=== PATIENT | male | born 1935 | race Caucasian/White ===

== ENCOUNTER → 2019-02-09 | Day surgery (SDC) | payer MEDICARE ==
[2019-02-07 10:47] VITALS: BMI 30.7
[~2019-02-09] MED LIST: LIDOCAINE 1% 20 ML VIAL (10MG/ML) FOR IV START INTRADERMA ONE; LIDOCAINE 1% INJ 10MG/ML (20 ML MDV) ONE; PROPOFOL 10 MG/ML 20 ML VIAL IV ONE
[2019-02-09] MEDS: LACTATED RINGERS 1,000 ML IV SCH ×2 (09:45→10:29)
[2019-02-09 09:56] VITALS: RESP 16; TEMP 97.3
[2019-02-09 09:56] LABS: Glucose,Whole Blood 90 mg/dL (75-99)
[2019-02-09 11:24] VITALS: BP 153/81; PULSE 54
--- NOTE | 2019-02-09 21:39 | P.PCN ---
Date of Procedure: 02/09/19 Procedure(s) Performed: Procedure: 1. Esophagogastroduodenoscopy and biopsy. 2. Colonoscopy and polypectomy. Preoperative diagnosis: Iron deficiency anemia. Postoperative diagnosis: 1. Hiatal hernia with no obvious esophagitis or complicated reflux disease. 2. Mild gastritis and duodenitis. 3. Biopsies obtained from the duodenum, antrum, esophagus and GE junction. 4. Diffuse diverticulosis with no evidence of acute diverticulitis or strictures. 5. Small isolated angiectasias in the cecum, nonbleeding, were noted unlikely to be of clinical significance. 6. Small sigmoid polyp snared but no large polyps or cancer. Preparation: HalfLytely prep. Sedation: Was provided by anesthesia. Brief clinical history: The patient is an 83-year-old male who is scheduled for this evaluation because of finding of iron deficiency anemia but no overt bleeding. His last colonoscopy with me was in May 06/2016 for screening for neoplasia because of history of polyps and it showed diffuse diverticulosis. The patient has no upper or lower GI complaints or change in bowel habits. No overt bleeding. Procedure: With the patient on his left lateral decubitus position and after informed consent and adequate sedation, I passed the Olympus-GIF H190 video upper endoscope through the cricopharyngeus down the esophagus. GE junction was around 35 cm from the incisors and there was a moderately sized sliding hiatal hernia with no obvious esophagitis or complicated reflux disease. The endoscope was then passed into the stomach which was insufflated with air and inspected in detail including the retroflex view in the cardia. There was some mottling and erythema in the antrum but no ulcers or erosions. Pyloric channel did not show any ulcers. Duodenal bulb, post bulbar area and descending duodenum showed some erythema. I obtained biopsies from the duodenum, antrum, esophagus and GE junction then the endoscope was withdrawn and I proceeded to perform the colonoscopy. The perianal area was inspected and it did not show any fissures or fistulas. There were no masses felt on digital rectal examination. The Olympus CFH 190L video colonoscope was then inserted in the rectum in the usual fashion and advanced to the cecum. The mucosa appeared healthy. Small isolated angiectasias in the cecum, nonbleeding, were noted unlikely to be of clinical significance. A picture was obtained. There was A small polyp was seen in the sigmoid which was snared and retrieved by suction, but there were no large polyps or tumors. Diffuse diverticular disease noted, more on left side, with no evidence of acute diverticulitis or strictures. I retroflexed the endoscope in the rectum before the endoscope was withdrawn. The patient tolerated the procedre well. Plan: Patient will follow up with you as planned. Contingency capsule endoscopy.
== END ==
LOC: ORWHC2ENDO 08:17
DX: D50.9 Iron deficiency anemia, unspecified (principal); K29.50 Unspecified chronic gastritis without bleeding; K31.7 Polyp of stomach and duodenum; K44.9 Diaphragmatic hernia without obstruction or gangrene; K29.80 Duodenitis without bleeding; D12.5 Benign neoplasm of sigmoid colon; K57.30 Diverticulosis of large intestine without perforation or abscess without bleeding; K63.89 Other specified diseases of intestine; I10 Essential (primary) hypertension; E78.5 Hyperlipidemia, unspecified; J44.9 Chronic obstructive pulmonary disease, unspecified; C61 Malignant neoplasm of prostate; Z87.891 Personal history of nicotine dependence; Z79.810 Long term (current) use of selective estrogen receptor modulators (SERMs); Z79.52 Long term (current) use of systemic steroids; Z79.899 Other long term (current) drug therapy
CPT/HCPCS: 45385; 43239; 88305; J2001; J2704

== ENCOUNTER 2019-09-15 10:04 | Inpatient (IN) | payer MEDICARE ==
[2019-09-15] MEDS ORDERED: ACETAMINOPHEN TAB 325 MG TAB PO STA (10:22)
[2019-09-15] MEDS ORDERED: SODIUM CHLORIDE 0.9% 500 ML 500 ML IV STA (10:22)
--- NOTE | 2019-09-15 10:26 | ED ---
General Adult HPI - General Chief complaint: Upper Respiratory Infection Stated complaint: cough/congestion Time Seen by Provider: 09/15/19 10:12 Source: patient, family, EMS, RN notes reviewed Mode of arrival: EMS Limitations: no limitations - History of Present Illness Initial comments: This is an 84-year-old male presents emergency department via EMS from outpatient surgical center for evaluation of fever, shortness of breath. Patient states he is scheduled to have bladder surgery by Dr. fajardo or states that they were unable to perform surgery because he was noted to have a fever 101.3. Patient went to urgent care and was found still have a fever and probably slightly hypoxic at upper 80s. Patient doesn't at days had some cough congestion was recently treated for acute bronchitis. Patient states that he does have a slightly productive cough no chest pain denies any headache. He states he feels slightly achy. He does admit that he's had multiple for scans including right breast cancer, prostate cancer and recent diagnosis of bladder cancer. Patient did not receive any Tylenol or Motrin. Patient has no complaints of dysuria has no abdominal complaints. Patient states his prostate cancer was metastatic and was treated with medication prescribed by his urologist Dr. tana friedman. Patient does admit that he saw Dr. su the past but did not want chemotherapy - Related Data Home Medications Medication Instructions Recorded Confirmed Abiraterone Acetate [Zytiga] 250 mg PO DAILY 02/07/19 09/15/19 Tamsulosin HCl [Flomax] 0.8 mg PO DAILY 02/07/19 09/15/19 predniSONE 5 mg PO DAILY 02/07/19 09/15/19 Irbesartan 300 mg PO DAILY 09/15/19 09/15/19 Ketoconazole 2% Cream [Nizoral 2%] 1 applic TOPICAL DAILY 09/15/19 09/15/19 Tamoxifen Citrate 20 mg PO DAILY 09/15/19 09/15/19 Xgeva 120mg/1.7ml Subcutaneous 1.7 ml SQ Q28D 09/15/19 09/15/19 mitoMYcin [Mutamycin] 20 mg IV DIRECTED 09/15/19 09/15/19 Allergies Allergy/AdvReac Type Severity Reaction Status Date / Time No Known Allergies Allergy Verified 02/09/19 09:23 Review of Systems ROS Statement: Those systems with pertinent positive or pertinent negative responses have been documented in the HPI. ROS Other: All systems not noted in ROS Statement are negative. Past Medical History Past Medical History: Cancer, Hyperlipidemia, Hypertension Additional Past Medical History / Comment(s): hx prostate cancer pt states currently in remission, rt breast cancer recent mammogram "clean", anemia, recent infection lower rt leg tx with antibiotics History of Any Multi-Drug Resistant Organisms: None Reported Past Surgical History: Appendectomy, Breast Surgery, Orthopedic Surgery Additional Past Surgical History / Comment(s): colonoscopy, rt breast mastectomy, arthroscopic knee surgery, spleenectomy Past Anesthesia/Blood Transfusion Reactions: No Reported Reaction Past Psychological History: Anxiety Smoking Status: Former smoker - Past Family History Father Family Medical History: Cancer Additional Family Medical History / Comment(s): prostate Sister(s) Family Medical History: Cancer Additional Family Medical History / Comment(s): breast Brother(s) Family Medical History: Cancer Additional Family Medical History / Comment(s): colon cancer General Exam Limitations: no limitations General appearance: alert, in no apparent distress Head exam: Present: atraumatic, normocephalic, normal inspection Eye exam: Present: normal appearance, PERRL, EOMI. Absent: scleral icterus, conjunctival injection, periorbital swelling ENT exam: Present: normal exam, normal oropharynx, mucous membranes moist, TM's normal bilaterally Neck exam: Present: normal inspection, full ROM. Absent: tenderness, meningismus, lymphadenopathy Respiratory exam: Present: decreased breath sounds. Absent: normal lung sounds bilaterally, respiratory distress, wheezes, rales, rhonchi, stridor Cardiovascular Exam: Present: regular rate, normal rhythm, normal heart sounds. Absent: systolic murmur, diastolic murmur, rubs, gallop, clicks GI/Abdominal exam: Present: soft, normal bowel sounds. Absent: distended, tenderness, guarding, rebound, rigid Neurological exam: Present: alert, oriented X3 Skin exam: Present: warm, dry, intact, normal color. Absent: rash Course Vital Signs 09/15/19 09/15/19 10:08 12:09 Temperature 100.2 F H Pulse Rate 83 65 Respiratory 16 16 Rate Blood Pressure 109/51 90/54 O2 Sat by Pulse 86 L 94 L Oximetry Medical Decision Making - Medical Decision Making 84-year-old male presented for a fever. Patient does note have a fever, leukocytosis questionable pneumonia versus UTI. At this time patient was given Rocephin pending urine culture, blood culture. The patient noted to have elevated LFTs, kidney function and anemia. Patient's hemoglobin has been trending down over the last 1 month. Type and screen was ordered, occult blood was ordered. Patient was given 1500 mls of IV fluid resuscitation, blood pressure is slightly low at this time though patient is not tachycardic no definite sepsis at this time. Case discussed with Dr. Garza will have infectious disease, urology consult - Lab Data Result diagrams: 09/15/19 10:14 09/15/19 10:14 Lab Results 09/15/19 09/15/19 09/15/19 Range/Units 10:14 10:14 10:14 WBC 4.1 (3.8-10.6) k/uL RBC 2.42 L (4.30-5.90) m/uL Hgb 7.1 L (13.0-17.5) gm/dL Hct 21.5 L (39.0-53.0) % MCV 88.9 (80.0-100.0) fL MCH 29.5 (25.0-35.0) pg MCHC 33.2 (31.0-37.0) g/dL RDW 19.0 H (11.5-15.5) % Plt Count 99 L (150-450) k/uL Neutrophils % (Manual) 15 % Band Neutrophils % 1 % Lymphocytes % (Manual) 81 % Monocytes % (Manual) 3 % Eosinophils % (Manual) 1 % Metamyelocytes % 1 % Neutrophils # (Manual) 0.60 L (1.3-7.7) k/uL Lymphocytes # (Manual) 3.32 (1.0-4.8) k/uL Monocytes # (Manual) 0.12 (0-1.0) k/uL Eosinophils # (Manual) 0.04 (0-0.7) k/uL Metamyelocytes # (Man) 0.04 H (0) k/uL Nucleated RBCs 10 H (0-0) /100 WBC Manual Slide Review Performed Polychromasia Present Hypochromasia Slight Poikilocytosis Slight Anisocytosis Slight Target Cells Present Sodium 140 (137-145) mmol/L Potassium 3.5 (3.5-5.1) mmol/L Chloride 109 H (98-107) mmol/L Carbon Dioxide 21 L (22-30) mmol/L Anion Gap 10 mmol/L BUN 52 H (9-20) mg/dL Creatinine 1.87 H (0.66-1.25) mg/dL Est GFR (CKD-EPI)AfAm 38 (>60 ml/min/1.73 sqM) Est GFR (CKD-EPI)NonAf 33 (>60 ml/min/1.73 sqM) Glucose 112 H (74-99) mg/dL Plasma Lactic Acid Ortiz 1.6 (0.7-2.0) mmol/L Calcium 7.9 L (8.4-10.2) mg/dL Total Bilirubin 1.4 H (0.2-1.3) mg/dL AST 77 H (17-59) U/L ALT 47 (4-49) U/L Alkaline Phosphatase 265 H (38-126) U/L Total Protein 5.6 L (6.3-8.2) g/dL Albumin 3.1 L (3.5-5.0) g/dL Urine Color Urine Appearance (Clear) Urine pH (5.0-8.0) Ur Specific [place] (1.001-1.035) Urine Protein (Negative) Urine Glucose (UA) (Negative) Urine Ketones (Negative) Urine Blood (Negative) Urine Nitrite (Negative) Urine Bilirubin (Negative) Urine Urobilinogen (<2.0) mg/dL Ur Leukocyte Esterase (Negative) Urine RBC (0-5) /hpf Urine WBC (0-5) /hpf Ur Squamous Epith Cells (0-4) /hpf Amorphous Sediment (None) /hpf Urine Bacteria (None) /hpf Hyaline Casts (0-2) /lpf Granular Casts (0) /lpf Urine Mucus (None) /hpf Influenza Type A RNA (Not Detectd) Influenza Type B (PCR) (Not Detectd) 09/15/19 09/15/19 Range/Units 11:19 11:19 WBC (3.8-10.6) k/uL RBC (4.30-5.90) m/uL Hgb (13.0-17.5) gm/dL Hct (39.0-53.0) % MCV (80.0-100.0) fL MCH (25.0-35.0) pg MCHC (31.0-37.0) g/dL RDW (11.5-15.5) % Plt Count (150-450) k/uL Neutrophils % (Manual) % Band Neutrophils % % Lymphocytes % (Manual) % Monocytes % (Manual) % Eosinophils % (Manual) % Metamyelocytes % % Neutrophils # (Manual) (1.3-7.7) k/uL Lymphocytes # (Manual) (1.0-4.8) k/uL Monocytes # (Manual) (0-1.0) k/uL Eosinophils # (Manual) (0-0.7) k/uL Metamyelocytes # (Man) (0) k/uL Nucleated RBCs (0-0) /100 WBC Manual Slide Review Polychromasia Hypochromasia Poikilocytosis Anisocytosis Target Cells Sodium (137-145) mmol/L Potassium (3.5-5.1) mmol/L Chloride (98-107) mmol/L Carbon Dioxide (22-30) mmol/L Anion Gap mmol/L BUN (9-20) mg/dL Creatinine (0.66-1.25) mg/dL Est GFR (CKD-EPI)AfAm (>60 ml/min/1.73 sqM) Est GFR (CKD-EPI)NonAf (>60 ml/min/1.73 sqM) Glucose (74-99) mg/dL Plasma Lactic Acid Ortiz (0.7-2.0) mmol/L Calcium (8.4-10.2) mg/dL Total Bilirubin (0.2-1.3) mg/dL AST (17-59) U/L ALT (4-49) U/L Alkaline Phosphatase (38-126) U/L Total Protein (6.3-8.2) g/dL Albumin (3.5-5.0) g/dL Urine Color Yellow Urine Appearance Turbid (Clear) Urine pH 5.5 (5.0-8.0) Ur Specific [place] 1.017 (1.001-1.035) Urine Protein 1+ H (Negative) Urine Glucose (UA) Negative (Negative) Urine Ketones Negative (Negative) Urine Blood Small H (Negative) Urine Nitrite Negative (Negative) Urine Bilirubin Negative (Negative) Urine Urobilinogen <2.0 (<2.0) mg/dL Ur Leukocyte Esterase Negative (Negative) Urine RBC 47 H (0-5) /hpf Urine WBC 23 H (0-5) /hpf Ur Squamous Epith Cells 3 (0-4) /hpf Amorphous Sediment Moderate H (None) /hpf Urine Bacteria Rare H (None) /hpf Hyaline Casts 9 H (0-2) /lpf Granular Casts 11 (0) /lpf Urine Mucus Rare H (None) /hpf Influenza Type A RNA Not Detected (Not Detectd) Influenza Type B (PCR) Not Detected (Not Detectd) Disposition Clinical Impression: Fever, Dehydration, Acute kidney injury, Anemia, Transaminitis Disposition: ADMITTED IP TO THIS HOSP Condition: Fair Referrals: Johnny Casarez MD [Primary Care Provider] - 1-2 days
[2019-09-15 10:46] LABS: Albumin 3.1 g/dL (3.5-5.0); Calcium 7.9 mg/dL (8.4-10.2); Potassium 3.5 mmol/L (3.5-5.1); Total Bilirubin 1.4 mg/dL (0.2-1.3); Total Protein 5.6 g/dL (6.3-8.2)
[2019-09-15 11:15] LABS: Anisocytosis Slight; HCT 21.5 % (39.0-53.0); HGB 7.1 gm/dL (13.0-17.5); Hypochromasia Slight; MCH 29.5 pg (25.0-35.0); MCHC 33.2 g/dL (31.0-37.0); MCV 88.9 fL (80.0-100.0); Mean Platelet Volume 12.5; Poikilocytosis Slight; RBC 2.42 m/uL (4.30-5.90)
--- NOTE | 2019-09-15 11:24 | XR ---
EXAMINATION TYPE: XR chest 2V DATE OF EXAM: 09/15/2019 COMPARISON: NONE HISTORY: Fever. TECHNIQUE: Frontal and lateral views of the chest are obtained. FINDINGS: Left basilar subsegmental atelectasis is seen. There is no focal air space opacity, pleural effusion, or pneumothorax seen. Pulmonary hyperinflation with underlying COPD there is flattening of the diaphragms on the lateral view. The cardiac silhouette size is within normal limits. Multiple old healed left rib fractures. Surgical clips are seen within the right breast. IMPRESSION: Underlying COPD. Left basilar subsegmental atelectasis.
[2019-09-15 11:41] LABS: Band Neutrophils % 1 %; Eosinophils # (M) 0.04 k/uL (0-0.7); Lymphocytes # (M) 3.32 k/uL (1.0-4.8); Metamyelocytes # (M) 0.04 k/uL (0); Metamyelocytes % 1 %; Monocytes # (M) 0.12 k/uL (0-1.0); Neutrophils % (M) 15 %; Nucleated Red Blood Cells 10 /100 WBC (0-0); Total Cells Counted 200; WBC 4.1 k/uL (3.8-10.6)
[2019-09-15 11:42] LABS: Polychromasia Present; Target Cells Present
[2019-09-15 11:43] LABS: Platelet Count 99 k/uL (150-450)
[2019-09-15 11:56] LABS: Amorphous Sediment,Urine Moderate /hpf; Appearance,Urine Turbid (Clear); Bacteria,Urine Rare /hpf; Bilirubin,Urine Negative (Negative); Blood,Urine Small (Negative); Color,Urine Yellow; Glucose,Urine (UA) Negative (Negative); Granular Casts,Urine 11 /lpf (0); Hyaline Casts,Urine 9 /lpf (0-2); Ketones,Urine Negative (Negative); Leukocyte Esterase,Urine Negative (Negative); Mucus,Urine Rare /hpf; Nitrite,Urine Negative (Negative); PH, Urine 5.5 (5.0-8.0); Protein,Urine 1+ (Negative); RBC,Urine 47 /hpf (0-5); Specific Gravity,Urine 1.017 (1.001-1.035); Squamous Epithelial Cell,Urine 3 /hpf (0-4); Urobilinogen,Urine <2.0 mg/dL (<2.0); WBC,Urine 23 /hpf (0-5)
[2019-09-15] MEDS ORDERED: IPRATROPIUM-ALBUTEROL 3 ML NEB INHALATION STA (12:18)
[2019-09-15] MEDS ORDERED: SODIUM CHLORIDE 0.9% 1,000 ML IV ONE (12:18)
[2019-09-15] MEDS ORDERED: cefTRIAXone IN SWFI 1,000 MG/10 ML SYRINGE IVP STA (12:18)
[2019-09-15] MEDS ORDERED: NALOXONE 0.4 MG/ML 1 ML VIAL IV PRN (12:34)
[2019-09-15] MEDS ORDERED: ACETAMINOPHEN TAB 325 MG TAB PO PRN (12:34)
[2019-09-15] MEDS: SODIUM CHLORIDE 0.9% 1,000 ML IV SCH (13:20)
[2019-09-15] MEDS: CALCIUM CARBONATE 500 MG CHEWABLE PO PRN (16:22)
[2019-09-15] MEDS ORDERED: AZITHROMYCIN 500 MG TAB PO STA (16:38)
--- NOTE | 2019-09-15 16:51 | P.CONS ---
History of Present Illness - Reason for Consult Consult date: 09/15/19 Fever Requesting physician: Julian Garza - Chief Complaint Fever 1 day - History of Present Illness Patient is 84 year male who apparently went to surgery Center as the patient was supposed to undergo surgery for removal of a bladder polyp/tumor or surgery Center the patient was noticed to have a fever of 101F , the patient's surgery was canceled and the patient has been sent to [facility] on ER for further management of his fever on arrival to the ER the patient had did have a temperature 100.2, the patient white count was normal patient did have a UA we did shows 23 WBC leukocyte esterase was negative chest x-ray with some basilar atelectasis patient did received a dose of Rocephin in the subsequent the patient has been admitted to the hospital infection disease was consulted for further recommendation regarding antibiotic therapy. Patient did not recall if it is running any fever before he went to the surgery Center this morning patient had been complaining of cough that seems to be going on the last few weeks and recently slightly worse intensity of the cough is moderate and is productive of yellow sputum or hemoptysis no chest pain denies any nausea no vomiting no abdominal pain no diarrhea denies any burning or frequency of urine Review of Systems Positive point has been mentioned in the HPI rest of the systems are negative Past Medical History Past Medical History: Cancer, Hyperlipidemia, Hypertension Additional Past Medical History / Comment(s): hx prostate cancer pt states currently in remission, rt breast cancer recent mammogram "clean", anemia, recent infection lower rt leg tx with antibiotics History of Any Multi-Drug Resistant Organisms: None Reported Past Surgical History: Appendectomy, Breast Surgery, Orthopedic Surgery Additional Past Surgical History / Comment(s): colonoscopy, rt breast mastectomy, arthroscopic knee surgery, spleenectomy Past Anesthesia/Blood Transfusion Reactions: No Reported Reaction Past Psychological History: Anxiety Smoking Status: Former smoker - Past Family History Father Family Medical History: Cancer Additional Family Medical History / Comment(s): prostate Sister(s) Family Medical History: Cancer Additional Family Medical History / Comment(s): breast Brother(s) Family Medical History: Cancer Additional Family Medical History / Comment(s): colon cancer Mother Family Medical History: No Reported History Additional Family Medical History / Comment(s): Mother lived to be 98yrs old. Medications and Allergies Home Medications Medication Instructions Recorded Confirmed Type Abiraterone Acetate [Zytiga] 250 mg PO DAILY 02/07/19 09/15/19 History Tamsulosin HCl [Flomax] 0.8 mg PO DAILY 02/07/19 09/15/19 History predniSONE 5 mg PO DAILY 02/07/19 09/15/19 History Irbesartan 300 mg PO DAILY 09/15/19 09/15/19 History Ketoconazole 2% Cream [Nizoral 2%] 1 applic TOPICAL DAILY 09/15/19 09/15/19 History Tamoxifen Citrate 20 mg PO DAILY 09/15/19 09/15/19 History Xgeva 120mg/1.7ml Subcutaneous 1.7 ml SQ Q28D 09/15/19 09/15/19 History mitoMYcin [Mutamycin] 20 mg IV DIRECTED 09/15/19 09/15/19 History Allergies Allergy/AdvReac Type Severity Reaction Status Date / Time No Known Allergies Allergy Verified 02/09/19 09:23 Physical Exam Vitals: Vital Signs Temp Pulse Pulse Resp BP BP Pulse Ox 09/15/19 13:57 97.6 F 78 17 104/55 93 L 09/15/19 13:15 99.7 F H 76 16 103/56 95 09/15/19 12:48 79 09/15/19 12:09 65 16 90/54 94 L 09/15/19 10:08 100.2 F H 83 16 109/51 86 L Intake and Output 09/15/19 09/15/19 09/15/19 06:59 14:59 22:59 Other: Weight 83.915 kg GENERAL DESCRIPTION: Elderly male lying in bed, no distress. No tachypnea or accessory muscle of respiration use. HEENT: Shows Pallor , no scleral icterus. Oral mucous membrane is dry. No pharyngeal erythema or thrush NECK: Trachea central, no thyromegaly. LUNGS: Unlabored breathing. Decreased breath sound the bases. No wheeze or crackle. HEART: S1, S2, regular rate and rhythm. No loud murmur ABDOMEN: Soft, no tenderness , guarding or rigidity, no organomegaly EXTREMITIES: No edema of feet. SKIN: No rash, no masses palpable. NEUROLOGICAL: The patient is awake, alert, oriented x3, mood and affect normal. Results CBC & Chem 7: 09/15/19 10:14 09/15/19 10:14 Labs: Abnormal Lab Results - Last 24 Hours (Table) 09/15/19 09/15/19 09/15/19 Range/Units 10:14 10:14 11:19 RBC 2.42 L (4.30-5.90) m/uL Hgb 7.1 L (13.0-17.5) gm/dL Hct 21.5 L (39.0-53.0) % RDW 19.0 H (11.5-15.5) % Plt Count 99 L (150-450) k/uL Neutrophils # (Manual) 0.60 L (1.3-7.7) k/uL Metamyelocytes # (Man) 0.04 H (0) k/uL Nucleated RBCs 10 H (0-0) /100 WBC Chloride 109 H (98-107) mmol/L Carbon Dioxide 21 L (22-30) mmol/L BUN 52 H (9-20) mg/dL Creatinine 1.87 H (0.66-1.25) mg/dL Glucose 112 H (74-99) mg/dL Calcium 7.9 L (8.4-10.2) mg/dL Total Bilirubin 1.4 H (0.2-1.3) mg/dL AST 77 H (17-59) U/L Alkaline Phosphatase 265 H (38-126) U/L Total Protein 5.6 L (6.3-8.2) g/dL Albumin 3.1 L (3.5-5.0) g/dL Urine Protein 1+ H (Negative) Urine Blood Small H (Negative) Urine RBC 47 H (0-5) /hpf Urine WBC 23 H (0-5) /hpf Amorphous Sediment Moderate H (None) /hpf Urine Bacteria Rare H (None) /hpf Hyaline Casts 9 H (0-2) /lpf Urine Mucus Rare H (None) /hpf Assessment and Plan Assessment: 1Patient presented to the hospital with a fever in this patient who did have hypoxemia on arrival to the ER with O2 sats of 86% did have left lower lobe infiltrate in this patient who did have a cough and yellow sputum production likely suspicious for pneumonia likely community acquired as patient currently with no other clinical focus of infection the patient influenza test was negative, UA is not significantly positive and patient no urinary symptoms abdominal soft on clinical examination and no evidence of any joint swelling or cellulitis- (1) Pneumonia Current Visit: Yes Status: Acute Code(s): J18.9 - PNEUMONIA, UNSPECIFIED ORGANISM SNOMED Code(s): 764022623 (2) Fever Current Visit: Yes Status: Acute Code(s): R50.9 - FEVER, UNSPECIFIED SNOMED Code(s): 376506230 Plan: 1-we will try to obtain sputum for Gram stain and culture 2-Rocephin 1 g daily and Zithromax We will follow on clinical condition and cultures to further adjust medication if needed Thank you for this consultation will follow this patient with you Time with Patient: Greater than 30
[2019-09-15 18:35] LABS: Anisocytosis Slight; Hypochromasia Marked; MCH 29.8 pg (25.0-35.0); MCHC 32.8 g/dL (31.0-37.0); Mean Platelet Volume 12.7; Poikilocytosis Slight; RBC 2.16 m/uL (4.30-5.90)
[2019-09-15 18:37] LABS: HCT 19.7 % (39.0-53.0); HGB 6.5 gm/dL (13.0-17.5); Platelet Count 89 k/uL (150-450)
[2019-09-15 19:19] LABS: Band Neutrophils % 1 %; Neutrophils % (M) 17 %; Nucleated Red Blood Cells 4 /100 WBC (0-0); Total Cells Counted 200
[2019-09-15 19:20] LABS: Lymphocytes # (M) 1.58 k/uL (1.0-4.8); Monocytes # (M) 0.41 k/uL (0-1.0); WBC 2.4 k/uL (3.8-10.6)
[2019-09-15 19:24] LABS: Anisocytosis (M) Present; Poikilocytosis (M) Present; Polychromasia Present
[2019-09-16] MEDS: SODIUM CHLORIDE 0.9% 1,000 ML IV SCH ×2 (03:10→16:55)
[2019-09-16 07:43] LABS: Anisocytosis Slight; HCT 22.8 % (39.0-53.0); HGB 7.5 gm/dL (13.0-17.5); Hypochromasia Moderate; MCH 29.8 pg (25.0-35.0); MCHC 32.9 g/dL (31.0-37.0); MCV 90.6 fL (80.0-100.0); Mean Platelet Volume 12.3; Poikilocytosis Moderate; RBC 2.52 m/uL (4.30-5.90); RDW 18.4 % (11.5-15.5)
[2019-09-16 07:53] LABS: Albumin 2.9 g/dL (3.5-5.0); Calcium 7.6 mg/dL (8.4-10.2); Potassium 3.3 mmol/L (3.5-5.1); Total Bilirubin 1.4 mg/dL (0.2-1.3); Total Protein 5.3 g/dL (6.3-8.2)
[2019-09-16 07:59] LABS: Platelet Count 80 k/uL (150-450)
[2019-09-16] MEDS ORDERED: AZITHROMYCIN 250 MG TAB PO SCH (09:00)
[2019-09-16 09:08] LABS: Band Neutrophils % 1 %; Lymphocytes # (M) 2.07 k/uL (1.0-4.8); Metamyelocytes # (M) 0.03 k/uL (0); Metamyelocytes % 1 %; Monocytes # (M) 0.36 k/uL (0-1.0); Neutrophils % (M) 18 %; Nucleated Red Blood Cells 5 /100 WBC (0-0); Total Cells Counted 200
[2019-09-16 09:10] LABS: Large Platelets Present
--- NOTE | 2019-09-16 09:45 | US ---
EXAMINATION TYPE: US gallbladder DATE OF EXAM: 09/16/2019 COMPARISON: NONE CLINICAL HISTORY: elevated LFTs, fever. 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 isoechoic mass is seen anterior left lobe Gallbladder: partially contracted; pericholecystic fluid supper near fundus Evidence for sonographic Horn's sign: no CBD: wnl Right Kidney: No hydronephrosis or masses seen The pancreas is poorly visualized. There is a 1.1 cm cystic lesion in the mid pancreatic body. The liver is enlarged measuring 24 cm. There is a questionable nodular density in the left lobe of th e liver. The gallbladder is contracted. The gallbladder wall measures 3 mm. There is some evidence of perichol ecystic fluid. There is no sonographic Horn's sign. The distal common hepatic duct measures 3 mm. The right kidney is unremarkable. IMPRESSION: 1. CYSTIC LESION IN THE MID PANCREAS SHOULD BE FURTHER INVESTIGATED WITH CT. 2. 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 PLEA SE CORRELATE CLINICALLY.
--- NOTE | 2019-09-16 11:47 | P.GSCN ---
History of Present Illness Consult date: 09/16/19 Reason for Consult: Bladder cancer Requesting physician: Julian Garza History of present illness: The patient is an 84-year-old male diagnosed with locally advanced high-grade prostate cancer in January 2018. His PSA level at that time was 349.5. Bone scan showed diffuse osseous metastases. CT scan showed right hydronephrosis secondary to retroperitoneal adenopathy. He has been treated with androgen deprivation therapy, Zytiga, and Xgeva. His PSA level reached a carlita of 0.3 in April 2019, and was 0.4 in July 2019. A repeat CT scan in January 2019 showed resolution of the retroperitoneal adenopathy as well as the hydronephrosis, though some right renal atrophy was noted. He developed gross hematuria in July 2019. Cystoscopy revealed a 2.5 cm mass on the bladder floor, consistent with urothelial carcinoma. He was scheduled to undergo transurethral resection of the tumor yesterday, but surgery was canceled and he was admitted due to fever and shortness of breath. He is currently voiding wit hout difficulty. He describes his urine is being thalia in color. Review of Systems - Constitutional Reports fever - Cardiovascular Denies chest pain - Respiratory Reports dyspnea - Genitourinary Denies dysuria Past Medical History Past Medical History: Cancer, Hyperlipidemia, Hypertension Additional Past Medical History / Comment(s): hx prostate cancer pt states currently in remission, rt breast cancer recent mammogram "clean", anemia, recent infection lower rt leg tx with antibiotics History of Any Multi-Drug Resistant Organisms: None Reported Past Surgical History: Appendectomy, Breast Surgery, Orthopedic Surgery Additional Past Surgical History / Comment(s): colonoscopy, rt breast mastectomy, arthroscopic knee surgery, spleenectomy Past Anesthesia/Blood Transfusion Reactions: No Reported Reaction Past Psychological History: Anxiety Smoking Status: Former smoker - Past Family History Father Family Medical History: Cancer Additional Family Medical History / Comment(s): prostate Sister(s) Family Medical History: Cancer Additional Family Medical History / Comment(s): breast Brother(s) Family Medical History: Cancer Additional Family Medical History / Comment(s): colon cancer Mother Family Medical History: No Reported History Additional Family Medical History / Comment(s): Mother lived to be 98yrs old. Medications and Allergies Home Medications Medication Instructions Recorded Confirmed Type Abiraterone Acetate [Zytiga] 250 mg PO DAILY 02/07/19 09/15/19 History Tamsulosin HCl [Flomax] 0.8 mg PO DAILY 02/07/19 09/15/19 History predniSONE 5 mg PO DAILY 02/07/19 09/15/19 History Irbesartan 300 mg PO DAILY 09/15/19 09/15/19 History Ketoconazole 2% Cream [Nizoral 2%] 1 applic TOPICAL DAILY 09/15/19 09/15/19 History Tamoxifen Citrate 20 mg PO DAILY 09/15/19 09/15/19 History Xgeva 120mg/1.7ml Subcutaneous 1.7 ml SQ Q28D 09/15/19 09/15/19 History mitoMYcin [Mutamycin] 20 mg IV DIRECTED 09/15/19 09/15/19 History Allergies Allergy/AdvReac Type Severity Reaction Status Date / Time No Known Allergies Allergy Verified 02/09/19 09:23 Surgical - Exam Vital Signs Temp Pulse Resp BP Pulse Ox 100.2 F H 83 16 109/51 86 L 09/15/19 10:08 09/15/19 10:08 09/15/19 10:08 09/15/19 10:08 09/15/19 10:08 - General well developed, well nourished, no distress - Abdomen Abdomen: soft, non tender, no guarding, no rigid, no rebound - Psychiatric oriented to time, oriented to person, oriented to place, speech is normal, memory intact Results - Labs 09/16/19 07:18 09/16/19 07:18 Abnormal Lab Results - Last 24 Hours (Table) 09/15/19 09/15/19 09/15/19 Range/Units 10:14 10:14 11:19 WBC (3.8-10.6) k/uL RBC 2.42 L (4.30-5.90) m/uL Hgb 7.1 L (13.0-17.5) gm/dL Hct 21.5 L (39.0-53.0) % RDW 19.0 H (11.5-15.5) % Plt Count 99 L (150-450) k/uL Neutrophils # (Manual) 0.60 L (1.3-7.7) k/uL Metamyelocytes # (Man) 0.04 H (0) k/uL Nucleated RBCs 10 H (0-0) /100 WBC Chloride 109 H (98-107) mmol/L Carbon Dioxide 21 L (22-30) mmol/L BUN 52 H (9-20) mg/dL Creatinine 1.87 H (0.66-1.25) mg/dL Glucose 112 H (74-99) mg/dL Calcium 7.9 L (8.4-10.2) mg/dL Total Bilirubin 1.4 H (0.2-1.3) mg/dL AST 77 H (17-59) U/L Alkaline Phosphatase 265 H (38-126) U/L Total Protein 5.6 L (6.3-8.2) g/dL Albumin 3.1 L (3.5-5.0) g/dL Urine Protein 1+ H (Negative) Urine Blood Small H (Negative) Urine RBC 47 H (0-5) /hpf Urine WBC 23 H (0-5) /hpf Amorphous Sediment Moderate H (None) /hpf Urine Bacteria Rare H (None) /hpf Hyaline Casts 9 H (0-2) /lpf Urine Mucus Rare H (None) /hpf Crossmatch 09/15/19 09/15/19 Range/Units 15:17 18:13 WBC 2.4 L (3.8-10.6) k/uL RBC 2.16 L (4.30-5.90) m/uL Hgb 6.5 L* (13.0-17.5) gm/dL Hct 19.7 L* (39.0-53.0) % RDW 19.0 H (11.5-15.5) % Plt Count 89 L (150-450) k/uL Neutrophils # (Manual) 0.40 L* (1.3-7.7) k/uL Metamyelocytes # (Man) (0) k/uL Nucleated RBCs 4 H (0-0) /100 WBC Chloride (98-107) mmol/L Carbon Dioxide (22-30) mmol/L BUN (9-20) mg/dL Creatinine (0.66-1.25) mg/dL Glucose (74-99) mg/dL Calcium (8.4-10.2) mg/dL Total Bilirubin (0.2-1.3) mg/dL AST (17-59) U/L Alkaline Phosphatase (38-126) U/L Total Protein (6.3-8.2) g/dL Albumin (3.5-5.0) g/dL Urine Protein (Negative) Urine Blood (Negative) Urine RBC (0-5) /hpf Urine WBC (0-5) /hpf Amorphous Sediment (None) /hpf Urine Bacteria (None) /hpf Hyaline Casts (0-2) /lpf Urine Mucus (None) /hpf Crossmatch See Detail Microbiology - Last 24 Hours (Table) 09/15/19 11:19 Urine Culture - Preliminary Urine,Voided Diabetes panel 09/15/19 Range/Units 10:14 Sodium 140 (137-145) mmol/L Potassium 3.5 (3.5-5.1) mmol/L Chloride 109 H (98-107) mmol/L Carbon Dioxide 21 L (22-30) mmol/L BUN 52 H (9-20) mg/dL Creatinine 1.87 H (0.66-1.25) mg/dL Glucose 112 H (74-99) mg/dL Calcium 7.9 L (8.4-10.2) mg/dL AST 77 H (17-59) U/L ALT 47 (4-49) U/L Alkaline Phosphatase 265 H (38-126) U/L Total Protein 5.6 L (6.3-8.2) g/dL Albumin 3.1 L (3.5-5.0) g/dL Calcium panel 09/15/19 Range/Units 10:14 Calcium 7.9 L (8.4-10.2) mg/dL Albumin 3.1 L (3.5-5.0) g/dL Pituitary panel 09/15/19 Range/Units 10:14 Sodium 140 (137-145) mmol/L Potassium 3.5 (3.5-5.1) mmol/L Chloride 109 H (98-107) mmol/L Carbon Dioxide 21 L (22-30) mmol/L BUN 52 H (9-20) mg/dL Creatinine 1.87 H (0.66-1.25) mg/dL Glucose 112 H (74-99) mg/dL Calcium 7.9 L (8.4-10.2) mg/dL Adrenal panel 09/15/19 Range/Units 10:14 Sodium 140 (137-145) mmol/L Potassium 3.5 (3.5-5.1) mmol/L Chloride 109 H (98-107) mmol/L Carbon Dioxide 21 L (22-30) mmol/L BUN 52 H (9-20) mg/dL Creatinine 1.87 H (0.66-1.25) mg/dL Glucose 112 H (74-99) mg/dL Calcium 7.9 L (8.4-10.2) mg/dL Total Bilirubin 1.4 H (0.2-1.3) mg/dL AST 77 H (17-59) U/L ALT 47 (4-49) U/L Alkaline Phosphatase 265 H (38-126) U/L Total Protein 5.6 L (6.3-8.2) g/dL Albumin 3.1 L (3.5-5.0) g/dL Assessment and Plan (1) Malignant neoplasm of bladder, unspecified Current Visit: Yes Status: Acute Code(s): C67.9 - MALIGNANT NEOPLASM OF BLADDER, UNSPECIFIED SNOMED Code(s): 992132172 Plan: I reviewed the patient's treatment plan with he and his . I explained to them that the thalia discoloration of the urine may be due to hematuria, which in turn is almost certainly due to his known bladder tumor. Transurethral resection of the bladder tumor will be rescheduled once his overall medical condition has improved. Please notify me if we can be of any further assistance.
[2019-09-16] MEDS: AMPICILLIN-SULBACTAM 3 GM in SODIUM CHLORIDE 0.9% 100 ML IVPB SCH (16:54)
[2019-09-16] MEDS: LOPERAMIDE 2 MG CAP PO PRN (19:47)
--- NOTE | 2019-09-16 21:28 | P.HPIM ---
History of Present Illness H&P Date: 09/16/19 Chief Complaint: Fever History of presenting complaint: This is a 84-year-old patient of Dr. Casarez. Patient had a locally advanced high-grade prostate cancer and thousand 18. Poor skin and showed diffuse osseous metastasis. Also had retroperitoneal adenopathy with right h ydronephrosis. He was treated with androgen deprivation therapy and responded very well. PSA came down to less than 1. Subsequently he was noted to have some right renal atrophy. He again had cross immaturity in July 2019 and cystoscopy revealed a 2.5 cm mass of the bladder 4. Suspicious for urothelial carcinoma. He was supposed to have undergone TURP of the tumor yesterday but he was found to have a fever up to 101. He's had a congested chest for 5 days. Bringing up yellow phlegm. Short of breath pulse ox was down to 84%. Patient admitted for the same. Patient also had right breast cancer that was treated surgically. Patient's urologist is Dr. Kelly. Review of systems: GEN.: Febrile tired EYES: None HEENT: None NECK: None RESPIRATORY: As above] CARDIOVASCULAR: None GASTROINTESTINAL: None GENITOURINARY: None MUSCULOSKELETAL: None LYMPHATICS: None HEMATOLOGICAL: None PSYCHIATRY: None NEUROLOGICAL: None Past medical history to include: Bladder cancer, hypertension, hyperlipidemia, prostate cancer that was removed, right breast cancer removed, Social history: Smoked over 2 packs a day for over 50 years stopped in 2004. Retired. . Physical examination: VITAL SIGNS: 100.2, 83, 16, 109/51, 86% on room air GENERAL: BMI 30, sitting up in bed, tired appearing slightly short of breath. EYES: Pupils equal. Conjunctiva normal. HEENT: External appearance of nose and ears normal, oral cavity grossly normal. NECK: JVD not raised; masses not palpable. HEART: First and second heart sounds are normal; no edema. LUNGS: Respiratory rate increased, decreased breaths on some crackles. ABDOMEN: Soft, nontender, liver spleen not palpable, no masses palpable. PSYCH: Alert and oriented x3; mood and affect normal. NEUROLOGICAL: Cranial nerves grossly intact; no facial asymmetry, power and sensation grossly intact. 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 1 repeat hemoglobin this morning 6.5 Chest x-ray film personally reviewed by me-shows infiltrates Abdominal ultrasound shows a thickened gallbladder with some pericholecystic fluid Assessment: -Pneumonia suspect gram-negative organism -Acute COPD exacerbation in an ex-smoker -Acute hypoxic respiratory failure from pneumonia -History of prostate cancer that was treated with androgen deprivation therapy to which patient responded well -Chronic kidney disease with some atrophy of the right kidney -Bladder tumor pending resection-essential hypertension -Hyperlipidemia Plan: Patient is on IV Unasyn. Home medications resumed. IV fluids. Will add Mucinex, inhaled steroids and bronchodilators. Consultations made to urology and ID. Care was discussed with the patient and . Questions were answered. Lovenox for DVT prophylaxis. Past Medical History Past Medical History: Cancer, Hyperlipidemia, Hypertension Additional Past Medical History / Comment(s): hx prostate cancer pt states currently in remission, rt breast cancer recent mammogram "clean", anemia, recent infection lower rt leg tx with antibiotics History of Any Multi-Drug Resistant Organisms: None Reported Past Surgical History: Appendectomy, Breast Surgery, Orthopedic Surgery Additional Past Surgical History / Comment(s): colonoscopy, rt breast mastectomy, arthroscopic knee surgery, spleenectomy Past Anesthesia/Blood Transfusion Reactions: No Reported Reaction Past Psychological History: Anxiety Smoking Status: Former smoker - Past Family History Father Family Medical History: Cancer Additional Family Medical History / Comment(s): prostate Sister(s) Family Medical History: Cancer Additional Family Medical History / Comment(s): breast Brother(s) Family Medical History: Cancer Additional Family Medical History / Comment(s): colon cancer Mother Family Medical History: No Reported History Additional Family Medical History / Comment(s): Mother lived to be 98yrs old. Medications and Allergies Home Medications Medication Instructions Recorded Confirmed Type Abiraterone Acetate [Zytiga] 250 mg PO DAILY 02/07/19 09/15/19 History Tamsulosin HCl [Flomax] 0.8 mg PO DAILY 02/07/19 09/15/19 History predniSONE 5 mg PO DAILY 02/07/19 09/15/19 History Irbesartan 300 mg PO DAILY 09/15/19 09/15/19 History Ketoconazole 2% Cream [Nizoral 2%] 1 applic TOPICAL DAILY 09/15/19 09/15/19 History Tamoxifen Citrate 20 mg PO DAILY 09/15/19 09/15/19 History Xgeva 120mg/1.7ml Subcutaneous 1.7 ml SQ Q28D 09/15/19 09/15/19 History mitoMYcin [Mutamycin] 20 mg IV DIRECTED 09/15/19 09/15/19 History Allergies Allergy/AdvReac Type Severity Reaction Status Date / Time No Known Allergies Allergy Verified 02/09/19 09:23 Physical Exam Vitals: Vital Signs Temp Pulse Pulse Resp BP BP Pulse Ox 09/16/19 08:30 75 20 09/16/19 05:00 98.9 F 75 20 91/53 93 L 09/16/19 00:57 97.9 F 72 18 110/64 94 L 09/15/19 22:04 97.5 F L 77 16 97/55 93 L 09/15/19 21:34 98.3 F 81 18 91/46 95 09/15/19 21:24 97.3 F L 91 16 106/58 09/15/19 21:00 97.1 F L 90 16 107/61 90 L 09/15/19 13:57 97.6 F 78 17 104/55 93 L 09/15/19 13:15 99.7 F H 76 16 103/56 95 09/15/19 12:48 79 09/15/19 12:09 65 16 90/54 94 L Intake and Output 09/15/19 09/16/19 09/16/19 22:59 06:59 14:59 Intake Total 290 1035 Balance 290 1035 Intake: Intake, IV Titration 725 Amount Sodium Chloride 0.9% 1, 725 000 ml @ 75 mls/hr IV . [id number] [facility] Rx#:[id number] Oral 290 Blood Product 0 310 Rc As-3 Unit 0 310 [id number] Other: Voiding Method Toilet Toilet Toilet Urinal # Voids 2 2 Weight 83.915 kg Results CBC & Chem 7: 09/16/19 07:18 09/16/19 07:18 Labs: Abnormal Lab Results - Last 24 Hours (Table) 09/15/19 09/15/19 09/15/19 Range/Units 10:14 11:19 15:17 WBC (3.8-10.6) k/uL RBC 2.42 L (4.30-5.90) m/uL Hgb 7.1 L (13.0-17.5) gm/dL Hct 21.5 L (39.0-53.0) % RDW 19.0 H (11.5-15.5) % Plt Count 99 L (150-450) k/uL Neutrophils # (Manual) 0.60 L (1.3-7.7) k/uL Metamyelocytes # (Man) 0.04 H (0) k/uL Nucleated RBCs 10 H (0-0) /100 WBC Potassium (3.5-5.1) mmol/L Chloride (98-107) mmol/L Carbon Dioxide (22-30) mmol/L BUN (9-20) mg/dL Creatinine (0.66-1.25) mg/dL Glucose (74-99) mg/dL Calcium (8.4-10.2) mg/dL Total Bilirubin (0.2-1.3) mg/dL AST (17-59) U/L Alkaline Phosphatase (38-126) U/L Total Protein (6.3-8.2) g/dL Albumin (3.5-5.0) g/dL Urine Protein 1+ H (Negative) Urine Blood Small H (Negative) Urine RBC 47 H (0-5) /hpf Urine WBC 23 H (0-5) /hpf Amorphous Sediment Moderate H (None) /hpf Urine Bacteria Rare H (None) /hpf Hyaline Casts 9 H (0-2) /lpf Urine Mucus Rare H (None) /hpf Crossmatch See Detail 09/15/19 09/16/19 09/16/19 Range/Units 18:13 07:18 07:18 WBC 2.4 L 3.0 L (3.8-10.6) k/uL RBC 2.16 L 2.52 L (4.30-5.90) m/uL Hgb 6.5 L* 7.5 L (13.0-17.5) gm/dL Hct 19.7 L* 22.8 L (39.0-53.0) % RDW 19.0 H 18.4 H (11.5-15.5) % Plt Count 89 L 80 L (150-450) k/uL Neutrophils # (Manual) 0.40 L* 0.50 L (1.3-7.7) k/uL Metamyelocytes # (Man) 0.03 H (0) k/uL Nucleated RBCs 4 H 5 H (0-0) /100 WBC Potassium 3.3 L (3.5-5.1) mmol/L Chloride 111 H (98-107) mmol/L Carbon Dioxide 21 L (22-30) mmol/L BUN 50 H (9-20) mg/dL Creatinine 1.83 H (0.66-1.25) mg/dL Glucose 108 H (74-99) mg/dL Calcium 7.6 L (8.4-10.2) mg/dL Total Bilirubin 1.4 H (0.2-1.3) mg/dL AST 72 H (17-59) U/L Alkaline Phosphatase 260 H (38-126) U/L Total Protein 5.3 L (6.3-8.2) g/dL Albumin 2.9 L (3.5-5.0) g/dL Urine Protein (Negative) Urine Blood (Negative) Urine RBC (0-5) /hpf Urine WBC (0-5) /hpf Amorphous Sediment (None) /hpf Urine Bacteria (None) /hpf Hyaline Casts (0-2) /lpf Urine Mucus (None) /hpf Crossmatch Microbiology - Last 24 Hours (Table) 09/15/19 11:19 Urine Culture - Preliminary Urine,Voided Thrombosis Risk Factor Assmnt - Choose All That Apply Any of the Below Risk Factors Present?: Yes Each Factor Represents 1 point: Abnormal pulmonary function (COPD), Obesity (BMI >25) Other Risk Factors: Yes Each Risk Factor Represents 2 Points: Malignancy Each Risk Factor Represents 3 Points: Age 75 years or older Other congenital or acquired thrombophilia - If yes, enter type in comment: No Thrombosis Risk Factor Assessment Total Risk Factor Score: 7 Thrombosis Risk Factor Assessment Level: High Risk
[2019-09-16] MEDS: BUDESONIDE 1 MG/2 ML NEBU INHALATION SCH (21:34)
[2019-09-16] MEDS: IPRATROPIUM-ALBUTEROL 3 ML NEB INHALATION SCH (21:34)
[2019-09-16] MEDS: TAMOXIFEN 10 MG TAB PO SCH (21:35)
[2019-09-16] MEDS: methylPREDNISolone SOD SUCCI 40 MG/ML 1 ML VIAL IV SCH (21:51)
[2019-09-16] MEDS: guaiFENesin 600 MG TABLET.ER PO SCH (21:51)
[2019-09-16] MEDS: ENOXAPARIN 40 MG/0.4 ML SYRINGE SQ SCH (21:53)
[2019-09-17] MEDS: AMPICILLIN-SULBACTAM 3 GM in SODIUM CHLORIDE 0.9% 100 ML IVPB SCH ×3 (00:24→17:02)
--- NOTE | 2019-09-17 00:28 | PN ---
PROGRESS NOTE DATE OF SERVICE: 09/16/2019. REASON FOR FOLLOWUP: Fever and a question of UTI versus gallbladder disease. INTERVAL HISTORY: The patient is currently afebrile. The patient is still complaining of cough and sputum production. No chest pain, shortness of breath or cough. No nausea or vomiting. No abdominal pain. No diarrhea. PHYSICAL EXAMINATION: Blood pressure 100/60 with a pulse of 84, temperature 98.1. He is 96% on 3 L nasal cannula. General description is an elderly male lying in bed in no distress. Respiratory system: Unlabored breathing. Decreased breath sounds in the bases. No wheeze. Heart S1, S2. Regular rate and rhythm. Abdominal soft. Minimal tender in the right upper quadrant area. Extremities: No edema of the feet. LABS: Hemoglobin 7.5, white count 3.0, BUN of 15, creatinine is 1.83. Urine is showing Enterococcus species. DIAGNOSTIC IMPRESSION AND PLAN: Patient with fever with initial concern for possible pneumonia. This patient did have respiratory continues to have a cough with yellow sputum production. Now urine showing Enterococcus and ultrasound has been suspicious for possible cholecystitis. Antibiotic will be switched over to Unasyn 3 g q.6 hours. Will benefit from surgery evaluation and continue supportive care. MMODL / IJN: [id number] /
[2019-09-17] MEDS: IPRATROPIUM-ALBUTEROL 3 ML NEB INHALATION SCH ×6 (02:51→20:44)
[2019-09-17] MEDS ORDERED: Potassium Replacement Protocol 1 EACH MISC MISCELLANE PRN (04:23)
[2019-09-17] MEDS: SODIUM CHLORIDE 0.9% 1,000 ML IV SCH ×2 (06:09→17:01)
[2019-09-17 07:33] LABS: Anisocytosis Slight; HCT 22.8 % (39.0-53.0); Hypochromasia Moderate; MCH 28.4 pg (25.0-35.0); MCHC 30.8 g/dL (31.0-37.0); MCV 92.4 fL (80.0-100.0); Macrocytosis Slight; Mean Platelet Volume 12.3; Poikilocytosis Slight; RBC 2.46 m/uL (4.30-5.90); RDW 18.9 % (11.5-15.5)
[2019-09-17] MEDS: CLOTRIMAZOLE 1% CREAM 15 GM TUBE TOPICAL SCH (07:36)
[2019-09-17 07:37] LABS: Platelet Count 69 k/uL (150-450)
[2019-09-17] MEDS: TAMSULOSIN 0.4 MG CAP.ER.24H PO SCH (07:37)
[2019-09-17] MEDS: guaiFENesin 600 MG TABLET.ER PO SCH ×2 (07:37→20:51)
[2019-09-17] MEDS: LOSARTAN 50 MG TAB PO SCH (07:38)
[2019-09-17] MEDS: methylPREDNISolone SOD SUCCI 40 MG/ML 1 ML VIAL IV SCH ×2 (07:38→20:51)
[2019-09-17] MEDS: ENOXAPARIN 40 MG/0.4 ML SYRINGE SQ SCH (07:38)
[2019-09-17] MEDS: TAMOXIFEN 10 MG TAB PO SCH (07:39)
[2019-09-17] MEDS: predniSONE 5 MG TAB PO SCH (07:39)
[2019-09-17 08:31] LABS: Band Neutrophils % 1 %; Myelocytes # (M) 0.02 k/uL (0); Myelocytes % 1 %; Neutrophils % (M) 24 %; Nucleated Red Blood Cells 3 /100 WBC (0-0); Total Cells Counted 200
[2019-09-17 08:32] LABS: Large Platelets Present; Monocytes # (M) 0.25 k/uL (0-1.0); WBC 1.9 k/uL (3.8-10.6)
[2019-09-17] MEDS: BUDESONIDE 1 MG/2 ML NEBU INHALATION SCH ×2 (08:45→20:44)
[2019-09-17] MEDS: ZYTIGA 250 MG PO SCH (10:53)
[2019-09-17 17:14] LABS: Glucose,Whole Blood 127 mg/dL (75-99)
[2019-09-17] MEDS: INSULIN ASPART (NovoLOG) 100 UNIT/ML VIAL SQ SCH ×2 (17:28→20:51)
[2019-09-17] MEDS: LOPERAMIDE 2 MG CAP PO PRN (19:31)
[2019-09-17 20:24] LABS: Glucose,Whole Blood 154 mg/dL (75-99)
[2019-09-17] MEDS: CALCIUM CARBONATE 500 MG CHEWABLE PO PRN (21:14)
--- NOTE | 2019-09-17 21:40 | P.PN ---
Progress Note - Text Progress Note Date: 09/17/19 Chief Complaint: Fever Interval history: This is a 84-year-old patient of Dr. Casarez. Patient had a locally advanced high-grade prostate cancer and thousand 18. Poor skin and showed diffuse osseous metastasis. Also had retroperitoneal adenopathy with right hydronephro sis. He was treated with androgen deprivation therapy and responded very well. PSA came down to less than 1. Subsequently he was noted to have some right renal atrophy. He again had cross immaturity in July 2019 and cystoscopy revealed a 2.5 cm mass of the bladder 4. Suspicious for urothelial carcinoma. He was supposed to have undergone TURP of the tumor yesterday but he was found to have a fever up to 101. He's had a congested chest for 5 days. Bringing up yellow phlegm. Short of breath pulse ox was down to 84%. Patient admitted for the same. Patient also had right breast cancer that was treated surgically. Patient's urologist is Dr. Kelly. Admitted with-pneumonia, acute hypoxic respiratory failure, acute COPD exacerbation. Today-feeling much better. Breathing much improved. Oral intake improved. Feels comfortable. No abdominal pain. Review of systems: Was done for constitutional, cardiovascular, GI, pulmonary. relevant finding as above Active Medications Acetaminophen (Tylenol Tab) 650 mg PO Q6HR PRN PRN Reason: Mild Pain or Fever > 100.5 Albuterol/Ipratropium (Duoneb 0.5 Mg-3 Mg/3 Ml Soln) 3 ml INHALATION RT-Q4H [facility] Last Admin: 09/17/19 20:44 Dose: 3 ml Documented by: Budesonide (Pulmicort) 1 mg INHALATION RT-BID [facility] Last Admin: 09/17/19 20:44 Dose: 1 mg Documented by: Calcium Carbonate/Glycine (Tums) 500 mg PO QID PRN PRN Reason: Heartburn Last Admin: 09/17/19 21:14 Dose: 500 mg Documented by: Clotrimazole (Lotrimin Cream) 1 applic TOPICAL DAILY [facility] Last Admin: 09/17/19 07:36 Dose: Not Given Documented by: Enoxaparin Sodium (Lovenox) 30 mg SQ DAILY [facility] Guaifenesin (Mucinex) 1,200 mg PO Q12HR [facility] Last Admin: 09/17/19 20:51 Dose: 1,200 mg Documented by: Sodium Chloride (Saline 0.9%) 1,000 mls @ 75 mls/hr IV .[id number] [facility] Last Admin: 09/17/19 17:01 Dose: 75 mls/hr Documented by: Ampicillin Sodium/Sulbactam (Sodium 3 gm/ Sodium Chloride) 100 mls @ 200 mls/hr IVPB Q8HR [facility] Last Admin: 09/17/19 17:02 Dose: 200 mls/hr Documented by: Insulin Aspart (Novolog) 0 unit SQ ACHS [facility]; Protocol Last Admin: 09/17/19 20:51 Dose: 2 unit Documented by: Loperamide HCl (Imodium) 2 mg PO QID PRN PRN Reason: Diarrhea Last Admin: 09/17/19 19:31 Dose: 2 mg Documented by: Losartan Potassium (Cozaar) 100 mg PO DAILY [facility] Last Admin: 09/17/19 07:38 Dose: 100 mg Documented by: Methylprednisolone Sodium Succinate (Solu-Medrol) 40 mg IV Q12HR [facility] Last Admin: 09/17/19 20:51 Dose: 40 mg Documented by: Miscellaneous Information (Potassium Per Protocol) 1 each MISCELLANE DAILY PRN; Protocol PRN Reason: Per Protocol Naloxone HCl (Narcan) 0.2 mg IV Q2M PRN PRN Reason: Opioid Reversal Zytiga (Abiraterone (Acetate) 250 Mg) 250 mg PO DAILY [facility] Last Admin: 09/17/19 10:53 Dose: 250 mg Documented by: Prednisone () 5 mg PO DAILY [facility] Last Admin: 09/17/19 07:39 Dose: 5 mg Documented by: Tamoxifen Citrate (Nolvadex) 20 mg PO DAILY [facility] Last Admin: 09/17/19 07:39 Dose: 20 mg Documented by: Tamsulosin HCl (Flomax) 0.8 mg PO DAILY [facility] Last Admin: 09/17/19 07:37 Dose: 0.8 mg Documented by: Physical examination: VITAL SIGNS: 97.8, 76, 21, 95/56, 92% on 2 L GENERAL: Propped up in bed, breathing much improved EYES: Pupils equal. Conjunctiva normal. HEENT: External appearance of nose and ears normal, oral cavity grossly normal. NECK: JVD not raised; masses not palpable. HEART: First and second heart sounds are normal; no edema. LUNGS: Respiratory rate better, decreased breaths ABDOMEN: Soft, nontender, liver spleen not palpable, no masses palpable. PSYCH: Alert and oriented x3; mood and affect normal. 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 1 repeat hemoglobin this morning 6.5 Chest x-ray film personally reviewed by me-shows infiltrates Abdominal ultrasound shows a thickened gallbladder with some pericholecystic fluid Assessment: -Pneumonia suspect gram-negative organism, improving -Acute COPD exacerbation in an ex-smoker, improving -Acute hypoxic respiratory failure from pneumonia, improving -History of prostate cancer that was treated with androgen deprivation therapy to which patient responded well -Chronic kidney disease with some atrophy of the right kidney, stage III -Bladder tumor pending resection -essential hypertension -Hyperlipidemia -Pancytopenia, possibly from cancer treatment Plan: Continue with Unasyn, Switch to oral prednisone. Awaiting general surgery input regarding gallbladder. Get hematology opinion.
--- NOTE | 2019-09-17 23:16 | PN ---
PROGRESS NOTE DATE OF SERVICE: 09/17/2019. REASON FOR FOLLOW UP: Fever. INTERVAL HISTORY: The patient is currently afebrile. The patient has been breathing comfortably. The patient continues to have a cough and bringing up some sputum. Mentioned he has provided a sputum sample. No chest pain. Some abdominal discomfort. No nausea, no vomiting and no diarrhea. PHYSICAL EXAMINATION: Blood pressure is 115/55 with a pulse of 91. Temperature 97.5. He is 99% on 2 L nasal cannula. General description is an elderly male lying in bed in no distress. Respiratory system: Unlabored breathing with decreased breath sounds in the base. No wheeze. Heart S1-S2 regular rate and rhythm. Abdomen soft, minimal tenderness right upper quadrant. No guarding. No rigidity. LABS: Hemoglobin 7, white count 1.9. Urine with Enterococcus faecalis. DIAGNOSTIC IMPRESSION/PLAN: Patient admitted to the hospital with fever, source is multifactorial in this patient who did have Enterococcus faecalis urinary tract infection and concern for pneumonia and also with possible cholecystitis. The patient is currently covered with Unasyn that will be continued waiting for surgical evaluation. Family at the bedside. MMODL / IJN: [id number] /
[2019-09-18] MEDS: AMPICILLIN-SULBACTAM 3 GM in SODIUM CHLORIDE 0.9% 100 ML IVPB SCH ×3 (00:52→16:02)
[2019-09-18] MEDS: IPRATROPIUM-ALBUTEROL 3 ML NEB INHALATION SCH ×5 (01:31→17:46)
[2019-09-18] MEDS: SODIUM CHLORIDE 0.9% 1,000 ML IV SCH (05:14)
[2019-09-18 07:12] LABS: Glucose,Whole Blood 133 mg/dL (75-99)
[2019-09-18] MEDS: BUDESONIDE 1 MG/2 ML NEBU INHALATION SCH (07:44)
[2019-09-18] MEDS: predniSONE 5 MG TAB PO SCH (08:04)
[2019-09-18] MEDS: TAMOXIFEN 10 MG TAB PO SCH (08:04)
[2019-09-18] MEDS: guaiFENesin 600 MG TABLET.ER PO SCH (08:04)
[2019-09-18] MEDS: TAMSULOSIN 0.4 MG CAP.ER.24H PO SCH (08:04)
[2019-09-18] MEDS: INSULIN ASPART (NovoLOG) 100 UNIT/ML VIAL SQ SCH ×3 (08:05→17:37)
[2019-09-18] MEDS: CLOTRIMAZOLE 1% CREAM 15 GM TUBE TOPICAL SCH (08:05)
[2019-09-18] MEDS: LOSARTAN 50 MG TAB PO SCH (08:17)
[2019-09-18] MEDS: ZYTIGA 250 MG PO SCH (08:21)
[2019-09-18] MEDS ORDERED: ENOXAPARIN 30 MG/0.3 ML SYRINGE SQ SCH (09:00)
[2019-09-18] MEDS ORDERED: predniSONE 20 MG TAB PO SCH (09:00)
[2019-09-18 11:03] LABS: Reticulocyte % 1.3 % (0.5-2.0)
[2019-09-18 11:12] LABS: Albumin 2.8 g/dL (3.5-5.0); Potassium 4.2 mmol/L (3.5-5.1); Total Bilirubin 1.1 mg/dL (0.2-1.3); Total Protein 5.1 g/dL (6.3-8.2)
[2019-09-18 11:32] VITALS: PULSE 82
[2019-09-18 11:53] LABS: Glucose,Whole Blood 130 mg/dL (75-99)
[2019-09-18 12:05] LABS: Partial Thromboplastin Time 25.3 sec (22.0-30.0); Prothrombin Time 10.6 sec (9.0-12.0)
[2019-09-18 12:06] VITALS: BP 112/58; RESP 17; TEMP 98.1
[2019-09-18 14:09] LABS: Hemoglobin A1C 6.4 % (4.0-6.0)
--- NOTE | 2019-09-18 14:20 | NM ---
EXAMINATION TYPE: NM hepatobiliary w CCK DATE OF EXAM: 09/18/2019 COMPARISON: Ultrasound gallbladder 09/16/2019 HISTORY: Elevated liver function tests, abnormal gallbladder ultrasound TECHNIQUE: After the intravenous administration of 4.94 mCi Tc 99m Mebrofenin hepatobiliary scintigra phy is performed. Immediate images post injection. FINDINGS: There is satisfactory initial accumulation of tracer by the liver. The gallbladder is visualized wit hin 16 minutes. The small bowel activity is noted within 12 minutes. At one hour CCK was administer ed, patient was injected with 1.75 mcg of Kinevac, and gallbladder ejection fraction is calculated at 92 %, above the upper limit of the normal range. Therefore there is no scintigraphic evidence of cy stic or common bile duct obstruction to suggest acute cholecystitis. IMPRESSION: Findings may represent hyper dynamic gallbladder.
[2019-09-18 16:16] LABS: Protein, Total 4.7 g/dL (6.2-8.2)
[2019-09-18 16:21] LABS: % Iron Saturation 67.14 (15.00-50.00)
[2019-09-18 16:55] LABS: Ferritin 1617.3 ng/mL (22.0-322.0)
--- NOTE | 2019-09-18 18:05 | P.GSCN ---
History of Present Illness Consult date: 09/18/19 History of present illness: Patient seen and evaluated. He presented with fever of unknown origin. He reports transient 1/10 right upper quadrant pain prompting an ultrasound of the gallbladder. US report demonstrated questionable gallbladder thickening as a result general surgery consult ordered. He is tolerating regular diet. He has new anemia for which blood transfusion was given. He denies any current abdominal pain. I ordered a HIDA confirming no features of acute cholecystitis. He is surgically stable for discharge once medically stable. Past Medical History Past Medical History: Cancer, Hyperlipidemia, Hypertension Additional Past Medical History / Comment(s): hx prostate cancer pt states currently in remission, rt breast cancer recent mammogram "clean", anemia, recent infection lower rt leg tx with antibiotics History of Any Multi-Drug Resistant Organisms: None Reported Past Surgical History: Appendectomy, Breast Surgery, Orthopedic Surgery Additional Past Surgical History / Comment(s): colonoscopy, rt breast mastectomy, arthroscopic knee surgery, spleenectomy Past Anesthesia/Blood Transfusion Reactions: No Reported Reaction Past Psychological History: Anxiety Smoking Status: Former smoker - Past Family History Father Family Medical History: Cancer Additional Family Medical History / Comment(s): prostate Sister(s) Family Medical History: Cancer Additional Family Medical History / Comment(s): breast Brother(s) Family Medical History: Cancer Additional Family Medical History / Comment(s): colon cancer Mother Family Medical History: No Reported History Additional Family Medical History / Comment(s): Mother lived to be 98yrs old. Medications and Allergies Home Medications Medication Instructions Recorded Confirmed Type Abiraterone Acetate [Zytiga] 250 mg PO DAILY 02/07/19 09/15/19 History Tamsulosin HCl [Flomax] 0.8 mg PO DAILY 02/07/19 09/15/19 History predniSONE 5 mg PO DAILY 02/07/19 09/15/19 History Irbesartan 300 mg PO DAILY 09/15/19 09/15/19 History Ketoconazole 2% Cream [Nizoral 2%] 1 applic TOPICAL DAILY 09/15/19 09/15/19 History Tamoxifen Citrate 20 mg PO DAILY 09/15/19 09/15/19 History Xgeva 120mg/1.7ml Subcutaneous 1.7 ml SQ Q28D 09/15/19 09/15/19 History mitoMYcin [Mutamycin] 20 mg IV DIRECTED 09/15/19 09/15/19 History Allergies Allergy/AdvReac Type Severity Reaction Status Date / Time No Known Allergies Allergy Verified 02/09/19 09:23 Surgical - Exam Vital Signs Temp Pulse Resp BP Pulse Ox 100.2 F H 83 16 109/51 86 L 09/15/19 10:08 09/15/19 10:08 09/15/19 10:08 09/15/19 10:08 09/15/19 10:08 Results - Labs 09/17/19 07:09 09/18/19 10:19 Abnormal Lab Results - Last 24 Hours (Table) 09/17/19 09/17/19 09/18/19 Range/Units 07:09 20:22 07:06 Chloride (98-107) mmol/L BUN (9-20) mg/dL Creatinine (0.66-1.25) mg/dL Glucose (74-99) mg/dL POC Glucose (mg/dL) 154 H 133 H (75-99) mg/dL Hemoglobin A1c 6.4 H (4.0-6.0) % TIBC (228-460) ug/dL % Saturation (15.00-50.00) Ferritin (22.0-322.0) ng/mL AST (17-59) U/L Alkaline Phosphatase (38-126) U/L Total Protein (6.3-8.2) g/dL Total Protein (PEP) (6.2-8.2) g/dL Albumin (3.5-5.0) g/dL Vitamin B12 (200.0-944.0) pg/mL 09/18/19 09/18/19 09/18/19 Range/Units 10:19 10:19 11:48 Chloride 114 H (98-107) mmol/L BUN 47 H (9-20) mg/dL Creatinine 1.40 H (0.66-1.25) mg/dL Glucose 115 H (74-99) mg/dL POC Glucose (mg/dL) 130 H (75-99) mg/dL Hemoglobin A1c (4.0-6.0) % TIBC 213 L (228-460) ug/dL % Saturation 67.14 H (15.00-50.00) Ferritin 1617.3 H (22.0-322.0) ng/mL AST 60 H (17-59) U/L Alkaline Phosphatase 211 H (38-126) U/L Total Protein 5.1 L (6.3-8.2) g/dL Total Protein (PEP) 4.7 L (6.2-8.2) g/dL Albumin 2.8 L (3.5-5.0) g/dL Vitamin B12 1030.0 H (200.0-944.0) pg/mL Microbiology - Last 24 Hours (Table) 09/15/19 10:30 Blood Culture - Preliminary Blood No Growth after 72 hours 09/15/19 11:19 Urine Culture - Final Urine,Voided Enterococcus faecalis Diabetes panel 09/17/19 09/18/19 Range/Units 07:09 10:19 Sodium 145 (137-145) mmol/L Potassium 4.2 (3.5-5.1) mmol/L Chloride 114 H (98-107) mmol/L Carbon Dioxide 22 (22-30) mmol/L BUN 47 H (9-20) mg/dL Creatinine 1.40 H (0.66-1.25) mg/dL Glucose 115 H (74-99) mg/dL Hemoglobin A1c 6.4 H (4.0-6.0) % Calcium 9.0 (8.4-10.2) mg/dL AST 60 H (17-59) U/L ALT 40 (4-49) U/L Alkaline Phosphatase 211 H (38-126) U/L Total Protein 5.1 L (6.3-8.2) g/dL Albumin 2.8 L (3.5-5.0) g/dL Calcium panel 09/18/19 Range/Units 10:19 Calcium 9.0 (8.4-10.2) mg/dL Albumin 2.8 L (3.5-5.0) g/dL Pituitary panel 09/18/19 Range/Units 10:19 Sodium 145 (137-145) mmol/L Potassium 4.2 (3.5-5.1) mmol/L Chloride 114 H (98-107) mmol/L Carbon Dioxide 22 (22-30) mmol/L BUN 47 H (9-20) mg/dL Creatinine 1.40 H (0.66-1.25) mg/dL Glucose 115 H (74-99) mg/dL Calcium 9.0 (8.4-10.2) mg/dL Adrenal panel 09/18/19 Range/Units 10:19 Sodium 145 (137-145) mmol/L Potassium 4.2 (3.5-5.1) mmol/L Chloride 114 H (98-107) mmol/L Carbon Dioxide 22 (22-30) mmol/L BUN 47 H (9-20) mg/dL Creatinine 1.40 H (0.66-1.25) mg/dL Glucose 115 H (74-99) mg/dL Calcium 9.0 (8.4-10.2) mg/dL Total Bilirubin 1.1 (0.2-1.3) mg/dL AST 60 H (17-59) U/L ALT 40 (4-49) U/L Alkaline Phosphatase 211 H (38-126) U/L Total Protein 5.1 L (6.3-8.2) g/dL Albumin 2.8 L (3.5-5.0) g/dL
--- NOTE | 2019-09-18 20:21 | P.CONS ---
History of Present Illness - Reason for Consult Consult date: 09/18/19 Pancytopenia, prostate ca, male breast ca - History of Present Illness Mr Nye it is an 84 yr old white male, generally well-controlled medical problems. He states that his significant other had noted a slight distortion in his right nipple, while [place] the beach, about a year prior to his initial visit here on 10/28/17. Since then he has noted slowly progressive inversion, and drying and "tingling" of the skin around the nipple. He therefore sought attention for the same with his PCP who felt a mass. An ultrasound was ordered, and performed on 09/30/17. This showed A1.1 1.1 x1.2 cm noncircumcised prescribed irregular mass. The patient underwent an ultrasound-guided biopsy on 10/11/17. 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 The tumor was Her -2 2+ by IHC but non-amplified by FISH. the patient was referred here for further evaluation and recommendations. He has a family history of her sister being diagnosed with breast cancer. He states his sister was definitely above age 50, and apparently bilateral mastectomy had been recommended to her. He is not sure if she had any genetic testing done. genetic testing was ordered. This was negative. He proceeded to mastectomy on 12/16/17. He was found to have a grade III 1 .8 x 1.5 cm tumor, with 1 SN positive, with a 6 mm focus, with perinodal extenstion. Additional 6 nodes were negative He tolerated surgery well, other than a minor cellulits at a drain site, resolve with Keflex. He had an Oncotype done, placing him in the low risk category, with a score of 10. He was started on tamoxifen in early 02/14, and reports good tolerance with no specific side effects noted. He was seen by urology, Dr. Kelly, on 02/02/18, because of slowly progressive hesitancy on urination, and poor stream. PSA was found to be markedly elevated at 349.5. According to the patient, his last PSA had been 2 years prior and was between 3 and 4. He had a prostate biopsy on 02/08/18, that revealed malignancy and all 12 cores. This was high-grade, with areas of 4+4 = 8, as well as 4+5 = 9 on the right, and 4+3 = 7 on the left. he had a CT scan and bone scan done, that showed evidence of retroperitoneal adenopathy up to 1.7 cm, as well as multiple areas of involvement in the bones including bilateral ribs, thoracic and lumbar spine, sacrum and left pelvis. the patient was last follow-up here by Dr. Kelly, and was seen on 03/07/18 we discussed multiple options, specifically use of chemotherapy or of Zytiga upfront given the aggressiveness of his disease. he was agreeable to chemotherapy with Taxotere and this was ordered. However at his chemotherapy teaching appointment, the patient and his family again had multiple questions and concerns, and ultimately decided not to do the chemotherapy. He did start GN Rh agonist treatment with urology. After repeat , detailed discussion at his visit in 04/16, he agreed to Zytiga, and started that , along with Xgeva, with Urology. His PSA dropped to 1.8 by early 06/16, and then to < 1 by 09/17. He was changed to the lower dose of Zytiga with food in 09/17. Hgb was noted to be in the 10 range, with labs in 10/18 showing low iron stores. He had an EGD and colonoscopy in 02/15, which were positive only for some mild gastritis. He was placed on FeSO4 1/d, which he is tolerating well. His most recent visit in the office was on 08/01/19 at which time CBC was normal, other than hemoglobin of 11.8 The patient was continued on tamoxifen, as well as his antineoplastic treatment for prostate cancer. He then developed problems with hematuria, and was diagnosed with bladder cancer Earlier this month. He was supposed to have a repeat cystoscopy, with resection and possible mitomycin, on 09/15/19. However it was noticed by anesthesiology that the patient gic, and somewhat short of breath. He was also noted to have tachycardia and fever of 100.2. The procedure was therefore aborted and the patient admitted for further management. His urine subsequently grew Enterococcus faecalis. He is currently on antibio tics. Was also complaining of some right upper quadrant pain with ultrasound showing somewhat thickened and contracted gallbladder. on admission hemoglobin was in the 7 range, with white count 4.1 and platelets in the 90,000 range. White count subsequently declined to less than 2 today, while hemoglobin felt to 6.7 at which time he was transfused. Platelets have declined into the 60,000 range. Consult was therefore placed for further evaluation and recommendations. As described above the patient does not have any history of blood related problems other than the iron deficiency anemia. Review of Systems Constitutional: Reports fatigue, Reports fever, Reports poor appetite, Reports weakness Eyes: denies blurred vision, denies pain Ears: bilateral: decreased hearing Ears, nose, mouth and throat: Denies headache, Denies sore throat Cardiovascular: Reports decreased exercise tolerance Respiratory: Reports dyspnea Gastrointestinal: Reports diarrhea Genitourinary: Reports as per HPI, Reports hematuria, Reports urinary frequency Musculoskeletal: Reports muscle weakness, Denies myalgias Integumentary: Denies pruritus, Denies rash Neurological: Reports weakness, Denies numbness Psychiatric: Denies anxiety, Denies depression Endocrine: Reports fatigue Hematologic/Lymphatic: Reports as per HPI Past Medical History Past Medical History: Cancer, Hyperlipidemia, Hypertension Additional Past Medical History / Comment(s): hx prostate cancer pt states cu rrently in remission, rt breast cancer recent mammogram "clean", anemia, recent infection lower rt leg tx with antibiotics History of Any Multi-Drug Resistant Organisms: None Reported Past Surgical History: Appendectomy, Breast Surgery, Orthopedic Surgery Additional Past Surgical History / Comment(s): colonoscopy, rt breast mastectomy, arthroscopic knee surgery, spleenectomy Past Anesthesia/Blood Transfusion Reactions: No Reported Reaction Past Psychological History: Anxiety Smoking Status: Former smoker - Past Family History Father Family Medical History: Cancer Additional Family Medical History / Comment(s): prostate Sister(s) Family Medical History: Cancer Additional Family Medical History / Comment(s): breast Brother(s) Family Medical History: Cancer Additional Family Medical History / Comment(s): colon cancer Mother Family Medical History: No Reported History Additional Family Medical History / Comment(s): Mother lived to be 98yrs old. Medications and Allergies Home Medications Medication Instructions Recorded Confirmed Type Abiraterone Acetate [Zytiga] 250 mg PO DAILY 02/07/19 09/15/19 History Tamsulosin HCl [Flomax] 0.8 mg PO DAILY 02/07/19 09/15/19 History predniSONE 5 mg PO DAILY 02/07/19 09/15/19 History Irbesartan 300 mg PO DAILY 09/15/19 09/15/19 History Ketoconazole 2% Cream [Nizoral 2%] 1 applic TOPICAL DAILY 09/15/19 09/15/19 History Tamoxifen Citrate 20 mg PO DAILY 09/15/19 09/15/19 History Xgeva 120mg/1.7ml Subcutaneous 1.7 ml SQ Q28D 09/15/19 09/15/19 History mitoMYcin [Mutamycin] 20 mg IV DIRECTED 09/15/19 09/15/19 History Allergies Allergy/AdvReac Type Severity Reaction Status Date / Time No Known Allergies Allergy Verified 02/09/19 09:23 Physical Exam Vitals: Vital Signs Temp Pulse Pulse Resp BP Pulse Ox 09/18/19 15:03 95 09/18/19 12:05 98.1 F 82 17 112/58 97 09/18/19 11:32 82 09/18/19 11:22 86 09/18/19 08:16 95 09/18/19 08:14 101 H 131/61 80 L 09/18/19 08:04 80 09/18/19 07:47 76 94 L 09/18/19 05:00 98.0 F 73 16 90/52 96 09/18/19 04:13 92 09/18/19 04:02 88 09/18/19 01:41 90 16 09/18/19 01:31 91 18 09/17/19 21:00 97.5 F L 91 16 115/55 91 L 09/17/19 20:56 90 16 09/17/19 20:44 91 16 Intake and Output 09/18/19 09/18/19 09/18/19 06:59 14:59 22:59 Intake Total 1415 940 Balance 1415 940 Intake: Intake, IV Titration 825 700 Amount Ampicillin-Sulbactam 3 gm 100 100 In Sodium Chloride 0.9% 100 ml @ 200 mls/hr IVPB Q8HR NAYELI Rx#:[id number] Sodium Chloride 0.9% 1, 725 600 000 ml @ 75 mls/hr IV . [id number] NAYELI Rx#:[id number] Oral 590 240 Other: Voiding Method Toilet Toilet Toilet # Voids 2 3 - Constitutional General appearance: no acute distress - EENT Eyes: EOMI, PERRLA ENT: hard of hearing, normal oropharynx - Neck Neck: no lymphadenopathy Thyroid: bilateral: normal size - Respiratory Respiratory: bilateral: CTA - Cardiovascular Rhythm: regular Heart sounds: normal: S1, S2 - Gastrointestinal General gastrointestinal: normal bowel sounds, soft - Integumentary Integumentary: normal - Neurologic Neurologic: CNII-XII intact - Musculoskeletal Musculoskeletal: generalized weakness, strength equal bilaterally - Psychiatric Psychiatric: A&O x's 3, appropriate affect Results CBC & Chem 7: 09/17/19 07:09 09/18/19 10:19 Labs: Abnormal Lab Results - Last 24 Hours (Table) 09/17/19 09/17/19 09/18/19 Range/Units 07:09 20:22 07:06 Chloride (98-107) mmol/L BUN (9-20) mg/dL Creatinine (0.66-1.25) mg/dL Glucose (74-99) mg/dL POC Glucose (mg/dL) 154 H 133 H (75-99) mg/dL Hemoglobin A1c 6.4 H (4.0-6.0) % TIBC (228-460) ug/dL % Saturation (15.00-50.00) Ferritin (22.0-322.0) ng/mL AST (17-59) U/L Alkaline Phosphatase (38-126) U/L Total Protein (6.3-8.2) g/dL Total Protein (PEP) (6.2-8.2) g/dL Albumin (3.5-5.0) g/dL Vitamin B12 (200.0-944.0) pg/mL 09/18/19 09/18/19 09/18/19 Range/Units 10:19 10:19 11:48 Chloride 114 H (98-107) mmol/L BUN 47 H (9-20) mg/dL Creatinine 1.40 H (0.66-1.25) mg/dL Glucose 115 H (74-99) mg/dL POC Glucose (mg/dL) 130 H (75-99) mg/dL Hemoglobin A1c (4.0-6.0) % TIBC 213 L (228-460) ug/dL % Saturation 67.14 H (15.00-50.00) Ferritin 1617.3 H (22.0-322.0) ng/mL AST 60 H (17-59) U/L Alkaline Phosphatase 211 H (38-126) U/L Total Protein 5.1 L (6.3-8.2) g/dL Total Protein (PEP) 4.7 L (6.2-8.2) g/dL Albumin 2.8 L (3.5-5.0) g/dL Vitamin B12 1030.0 H (200.0-944.0) pg/mL Microbiology - Last 24 Hours (Table) 09/15/19 10:30 Blood Culture - Preliminary Blood No Growth after 72 hours 09/15/19 11:19 Urine Culture - Final Urine,Voided Enterococcus faecalis Chest x-ray: report reviewed US - abdomen: report reviewed Assessment and Plan (1) Pancytopenia Narrative/Plan: the patient has prior history of iron deficiency anemia. Pancytopenia noted during this admission is new. - Given his clinical presentation the most likely etiology is mild underlying marrow hypofunction because of his anti-androgen prostate cancer treatment. There could also be an element of MDS, given his age. Further drop in counts and baseline is likely due to additional stress from his current acute illness. In addition the patient had multiple upper respiratory infections in 08/17 requ iring antibiotic therapies which could have caused some additional marrow suppression - Check labs to rule out other causes. - Given drop in platelets and sepsis, I will also do a DIC workup - Monitor counts in the meantime and treated supportively. Assuming the above- mentioned workup is negative, the expectation would be that counts will return to baseline once acute condition resolves Status: Acute Code(s): D61.818 - OTHER PANCYTOPENIA SNOMED Code(s): 952830172 (2) Sepsis due to urinary tract infection Narrative/Plan: History as described. The patient is being followed by ID, and is on antibiotics with improvement. Defer to the admitting service and ID for continu ed treatment Status: Acute Code(s): A41.9 - SEPSIS, UNSPECIFIED ORGANISM; N39.0 - URINARY TRACT INFECTION, SITE NOT SPECIFIED SNOMED Code(s): 782969198 (3) Breast cancer in male Narrative/Plan: the patient is currently on tamoxifen. Continue same. tamoxifen does not affect immunity, and is not related to his pancytopenia. The patient is on DVT prophylaxis Status: Acute Code(s): C50.929 - MALIGNANT NEOPLASM OF UNSP SITE OF UNSPECIFIED MALE BREAST SNOMED Code(s): 674028774 (4) Prostate cancer Narrative/Plan: metastatic disease, currently on treatment as described. Okay to continue Zytiga and prednisone. Patient is following up with urology Status: Acute Code(s): C61 - MALIGNANT NEOPLASM OF PROSTATE SNOMED Code(s): 412099996 (5) Malignant neoplasm of bladder, unspecified Narrative/Plan: Patient was scheduled for cystoscopic resection. This will be rescheduled by urology, once acute condition resolves Status: Acute Code(s): C67.9 - MALIGNANT NEOPLASM OF BLADDER, UNSPECIFIED SNOMED Code(s): 585754054
--- NOTE | 2019-09-19 00:33 | P.DS ---
Providers Date of admission: 09/16/19 18:37 Expected date of discharge: 09/18/19 Attending physician: Julian Garza Consults: 09/15/19 12:35 Consult Physician Urgent Consulting Provider: William Ayers Consult Reason/Comments: Fever, UTI, possible pneumonia Do you want consulting provider notified?: Yes 09/15/19 12:36 Consult Physician Routine Consulting Provider: Warren Kelly Consult Reason/Comments: Bladder cancer, established patient Do you want consulting provider notified?: Yes 09/17/19 12:36 Consult Physician Urgent Consulting Provider: Sandi Benson Consult Reason/Comments: possible cholecystitis Do you want consulting provider notified?: Yes 09/17/19 21:40 Consult Physician Routine Consulting Provider: Kerwin Colon Consult Reason/Comments: Pancytopenia Do you want consulting provider notified?: Yes Primary care physician: Johnny Casarez Hospital Course: Chief Complaint: Fever Hospital course: This is a 84-year-old patient of Dr. Casarez. Patient had a locally advanced high-grade prostate cancer and thousand 18. Poor skin and showed diffuse osseous metastasis. Also had retroperitoneal adenopathy with right hydro nephrosis. He was treated with androgen deprivation therapy and responded very well. PSA came down to less than 1. Subsequently he was noted to have some right renal atrophy. He again had cross immaturity in July 2019 and cystoscopy revealed a 2.5 cm mass of the bladder 4. Suspicious for urothelial carcinoma. He was supposed to have undergone TURP of the tumor yesterday but he was found to have a fever up to 101. He's had a congested chest for 5 days. Bringing up yellow phlegm. Short of breath pulse ox was down to 84%. Patient admitted for the same. Patient also had right breast cancer that was treated surgically. Patient's urologist is Dr. Kelly. Admitted with-pneumonia, acute hypoxic respiratory failure, acute COPD exacerbation. UTI with Enterococcus faecalis. Treated with IV Unasyn, bronchodilators, inhaled steroids. Patient felt to have pancytopenia possibly from marrow suppression, acute illness, and need to rule out an element of MDS, and anti-androgen therapy. To be followed as an outpatient. Today-Feeling really back to baseline. Pulse ox 91-92% on room air. Also treated for UTI. Very keen to go home.. Pulse ox better with patient using the I-S. Discussed with the patient. And the nurse. Discussion and discharge planning more than 35 minutes Consultation: Dr. Sandi Hsieh from general surgery Dr. Colon from oncology Dr. Oreilly from ID Dr. Ramirez from urology Physical examination: VITAL SIGNS: 98.1, 82, 17, 112/58, 95% on room air GENERAL: Propped up in bed, comfortable EYES: Pupils equal. Conjunctiva normal. HEENT: External appearance of nose and ears normal, oral cavity grossly normal. NECK: JVD not raised; masses not palpable. HEART: First and second heart sounds are normal; no edema. LUNGS: Respiratory rate better, improved air entry ABDOMEN: Soft, nontender, liver spleen not palpable, no masses palpable. PSYCH: Alert and oriented x3; mood and affect normal. 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 1 repeat hemoglobin this morning 6.5 Chest x-ray film personally reviewed by me-shows infiltrates Abdominal ultrasound shows a thickened gallbladder with some pericholecystic fluid Assessment: -Pneumonia suspect gram-negative organism, -Acute COPD exacerbation in an ex-smoker, -Acute hypoxic respiratory failure from pneumonia, corrected -History of prostate cancer that was treated with androgen deprivation therapy to which patient responded well -Chronic kidney disease with some atrophy of the right kidney, stage III -Bladder tumor pending resection -essential hypertension -Hyperlipidemia -Pancytopenia, possibly from antiandrogen therapy, rule out MDS, acute infection Disposition: Home Patient Condition at Discharge: Stable Plan - Discharge Summary Discharge Rx Participant: No New Discharge Prescriptions: No Action predniSONE 5 mg PO DAILY Abiraterone Acetate [Zytiga] 250 mg PO DAILY Tamsulosin HCl [Flomax] 0.8 mg PO DAILY Xgeva 120mg/1.7ml Subcutaneous 1.7 ml SQ Q28D Tamoxifen Citrate 20 mg PO DAILY Ketoconazole 2% Cream [Nizoral 2%] 1 applic TOPICAL DAILY Irbesartan 300 mg PO DAILY mitoMYcin [Mutamycin] 20 mg IV DIRECTED Discharge Medication List Abiraterone Acetate [Zytiga] 250 mg PO DAILY 02/07/19 [History] Tamsulosin HCl [Flomax] 0.8 mg PO DAILY 02/07/19 [History] predniSONE 5 mg PO DAILY 02/07/19 [History] Irbesartan 300 mg PO DAILY 09/15/19 [History] Ketoconazole 2% Cream [Nizoral 2%] 1 applic TOPICAL DAILY 09/15/19 [History] Tamoxifen Citrate 20 mg PO DAILY 09/15/19 [History] Xgeva 120mg/1.7ml Subcutaneous 1.7 ml SQ Q28D 09/15/19 [History] mitoMYcin [Mutamycin] 20 mg IV DIRECTED 09/15/19 [History] Follow up Appointment(s)/Referral(s): Kerwin Colon MD [STAFF PHYSICIAN] - 10/19/19 11:00 am Johnny Casarez MD [Primary Care Provider] - 09/21/19 10:20 am Patient Instructions/Handouts: Dehydration (DC), Acute Kidney Injury (DC), Fever in Adults (ED), Anemia (DC) Discharge Disposition: HOME SELF-CARE
[2019-09-19 08:23] LABS: Free Kappa Lt Chain Qnt, Serum 1.93 mg/dL (0.33-1.94)
[2019-09-19] MEDS ORDERED: ENOXAPARIN 40 MG/0.4 ML SYRINGE SQ SCH (09:00)
[2019-09-19 13:05] LABS: Albumin 2.69 g/dL (3.80-4.90); Gamma Globulin 0.56 g/dL (0.70-1.50)
== END 2019-09-18 18:22 | disposition home or self-care (01) | DRG 177 ==
LOC: EC 10:04 → 5NMEDONC 12:46 → OBSVTOIN 09-16 18:37
PROVIDERS: ADMIT Hospitalist; ATTEND Hospitalist
DX: J15.6 Pneumonia due to other Gram-negative bacteria (principal); J96.01 Acute respiratory failure with hypoxia; C79.51 Secondary malignant neoplasm of bone; D61.818 Other pancytopenia; J44.0 Chronic obstructive pulmonary disease with (acute) lower respiratory infection; J44.1 Chronic obstructive pulmonary disease with (acute) exacerbation; J98.11 Atelectasis; N13.6 Pyonephrosis; N17.9 Acute kidney failure, unspecified; Z87.891 Personal history of nicotine dependence; B95.2 Enterococcus as the cause of diseases classified elsewhere; C61 Malignant neoplasm of prostate; C67.9 Malignant neoplasm of bladder, unspecified; E78.5 Hyperlipidemia, unspecified; E86.0 Dehydration; F41.9 Anxiety disorder, unspecified; I12.9 Hypertensive chronic kidney disease with stage 1 through stage 4 chronic kidney disease, or unspecified chronic kidney disease; N18.3 Chronic kidney disease, stage 3 (moderate); Z17.0 Estrogen receptor positive status [ER+]; Z79.810 Long term (current) use of selective estrogen receptor modulators (SERMs); Z79.899 Other long term (current) drug therapy; Z80.0 Family history of malignant neoplasm of digestive organs; Z80.3 Family history of malignant neoplasm of breast; Z90.11 Acquired absence of right breast and nipple; Z90.81 Acquired absence of spleen; Z80.9 Family history of malignant neoplasm, unspecified; T38.6X5A Adverse effect of antigonadotrophins, antiestrogens, antiandrogens, not elsewhere classified, initial encounter
CPT/HCPCS: 36415; 71046; 76705; 78227; 80053; 81001; 82272; 82607; 82728; 82747; 82947; 83036; 83540; 83550; 83605; 83883; 84132; 84165; 85025; 85045; 85384; 85610; 85730; 86038; 86334; 86431; 86850; 86900; 86901; 86920; 87040; 87070; 87077; 87086; 87186; 87205; 87502; 94640; 94760; 96361; 96374; 99285

== ENCOUNTER 2019-09-21 11:53 | Inpatient (IN) | payer MEDICARE ==
[2019-09-21] MEDS ORDERED: ALBUTEROL NEBULIZED 2.5 MG/3 ML INHALATION STA (12:06)
[2019-09-21] MEDS ORDERED: methylPREDNISolone SOD SUCCI 125 MG/2 ML VIAL IV STA (12:06)
[2019-09-21] MEDS ORDERED: IPRATROPIUM 0.5 MG/2.5 ML NEBU INHALATION STA (12:06)
--- NOTE | 2019-09-21 12:46 | ED ---
General Adult HPI - General Chief complaint: Shortness of Breath Stated complaint: hypotension Time Seen by Provider: 09/21/19 11:55 Source: patient Mode of arrival: EMS Limitations: no limitations - History of Present Illness Initial comments: 84-year-old male presenting for evaluation of hypotension. Patient was seen by his primary care physician for a outpatient follow-up after recent hospital admission. He was noted to be hypotensive and EMS was called and the patient was transported to the emergency department. Patient states he was admitted and treated for pneumonia as well as for hypertension. He denies chest pain. He reports dyspnea and cough. He has a history of COPD. History of recent admission with pneumonia. He also complains of bilateral lower extremity edema. No abdominal pain. No vomiting or diarrhea. No fever or chills. No pain complaints. - Related Data Home Medications Medication Instructions Recorded Confirmed Abiraterone Acetate [Zytiga] 250 mg PO DAILY 02/07/19 09/21/19 Tamsulosin HCl [Flomax] 0.8 mg PO W/SUPPER 02/07/19 09/21/19 predniSONE 5 mg PO DAILY 02/07/19 09/21/19 Irbesartan 300 mg PO W/SUPPER 09/15/19 09/21/19 Tamoxifen Citrate 20 mg PO W/SUPPER 09/15/19 09/21/19 Xgeva 120mg/1.7ml Subcutaneous 1.7 ml SQ Q90D 09/15/19 09/21/19 Allergies Allergy/AdvReac Type Severity Reaction Status Date / Time No Known Allergies Allergy Verified 09/21/19 13:02 Review of Systems ROS Statement: Those systems with pertinent positive or pertinent negative responses have been documented in the HPI. ROS Other: All systems not noted in ROS Statement are negative. Past Medical History Past Medical History: Cancer, Hyperlipidemia, Hypertension Additional Past Medical History / Comment(s): hx prostate cancer pt states currently in remission, rt breast cancer recent mammogram "clean", anemia, r ecent infection lower rt leg tx with antibiotics History of Any Multi-Drug Resistant Organisms: None Reported Past Surgical History: Appendectomy, Breast Surgery, Orthopedic Surgery Additional Past Surgical History / Comment(s): colonoscopy, rt breast mastectomy, arthroscopic knee surgery, spleenectomy Past Anesthesia/Blood Transfusion Reactions: No Reported Reaction Past Psychological History: Anxiety Smoking Status: Former smoker Past Alcohol Use History: Occasional Past Drug Use History: None Reported - Past Family History Father Family Medical History: Cancer Additional Family Medical History / Comment(s): prostate Sister(s) Family Medical History: Cancer Additional Family Medical History / Comment(s): breast Brother(s) Family Medical History: Cancer Additional Family Medical History / Comment(s): colon cancer Mother Family Medical History: No Reported History Additional Family Medical History / Comment(s): Mother lived to be 98yrs old. General Exam Limitations: no limitations General appearance: alert, in no apparent distress Head exam: Present: atraumatic, normocephalic Eye exam: Present: normal appearance, PERRL ENT exam: Present: normal exam Neck exam: Present: normal inspection. Absent: tenderness, meningismus Respiratory exam: Present: respiratory distress, wheezes, rales, decreased breath sounds Cardiovascular Exam: Present: regular rate, normal rhythm GI/Abdominal exam: Present: soft. Absent: distended, tenderness, guarding, rebound Extremities exam: Present: normal capillary refill, pedal edema Neurological exam: Present: alert, oriented X3, CN II-XII intact. Absent: motor sensory deficit Psychiatric exam: Present: normal affect, normal mood Skin exam: Present: warm, dry, intact. Absent: cyanosis, diaphoretic Course Vital Signs 09/21/19 09/21/19 09/21/19 12:17 13:00 13:26 Temperature 98.2 F Pulse Rate 76 76 74 Respiratory 20 20 Rate Blood Pressure 96/49 103/55 O2 Sat by Pulse 93 L 94 L Oximetry 09/21/19 09/21/19 09/21/19 13:35 13:44 14:00 Temperature Pulse Rate 75 76 77 Respiratory 18 Rate Blood Pressure 104/46 O2 Sat by Pulse 92 L Oximetry EKG Findings - EKG Comments: EKG Findings:: EKG: Normal sinus rhythm, left anterior fascicular block, rate of 78, CO interval 148, QRS duration 96, QTC 465, no ST segment elevation Medical Decision Making - Medical Decision Making 84-year-old male presenting with hypotension from outpatient office. Workup was initiated, patient found to be pancytopenic with a hemoglobin of 6, white blood cell count of 0.8. Platelets are stable at 62. Patient has stable creatinine with history of CK D. He has urinalysis showing persistent hematuria which is a known issue for this patient per chest x-ray concerning for pneumonia. He does report dyspnea and cough. He is initiated on IV antibiotics transfused 1 unit of packed RBCs. He will be admitted with hematology on consult as he has a known history of prostate cancer and is currently on treatment. Case discussed with the admitting physician. - Lab Data Result diagrams: 09/21/19 12:41 09/21/19 12:41 Lab Results 09/21/19 09/21/19 09/21/19 Range/Units 12:41 12:41 12:41 WBC 0.8 L* (3.8-10.6) k/uL RBC 1.99 L (4.30-5.90) m/uL Hgb 6.0 L* (13.0-17.5) gm/dL Hct 18.8 L* (39.0-53.0) % MCV 94.4 (80.0-100.0) fL MCH 30.3 (25.0-35.0) pg MCHC 32.1 (31.0-37.0) g/dL RDW 21.3 H (11.5-15.5) % Plt Count 62 L (150-450) k/uL Neutrophils % Not Reportable Lymphocytes % Not Reportable Monocytes % Not Reportable Eosinophils % Not Reportable Basophils % Not Reportable Neutrophils # Not Reportable Lymphocytes # Not Reportable Monocytes # Not Reportable Eosinophils # Not Reportable Basophils # Not Reportable Differential Comment Manual Slide Review Performed Large Platelets Present Hypochromasia Moderate Poikilocytosis (manual Present Anisocytosis Moderate Macrocytosis Slight Target Cells Present PT (9.0-12.0) sec INR (<1.2) APTT (22.0-30.0) sec Sodium (137-145) mmol/L Potassium (3.5-5.1) mmol/L Chloride (98-107) mmol/L Carbon Dioxide (22-30) mmol/L Anion Gap mmol/L BUN (9-20) mg/dL Creatinine (0.66-1.25) mg/dL Est GFR (CKD-EPI)AfAm (>60 ml/min/1.73 sqM) Est GFR (CKD-EPI)NonAf (>60 ml/min/1.73 sqM) Glucose (74-99) mg/dL Plasma Lactic Acid Ortiz 1.4 (0.7-2.0) mmol/L Calcium (8.4-10.2) mg/dL Magnesium (1.6-2.3) mg/dL Total Bilirubin (0.2-1.3) mg/dL AST (17-59) U/L ALT (4-49) U/L Alkaline Phosphatase (38-126) U/L NT-Pro-B Natriuret Pep pg/mL Total Protein (6.3-8.2) g/dL Albumin (3.5-5.0) g/dL Urine Color Urine Appearance (Clear) Urine pH (5.0-8.0) Ur Specific Dodge (1.001-1.035) Urine Protein (Negative) Urine Glucose (UA) (Negative) Urine Ketones (Negative) Urine Blood (Negative) Urine Nitrite (Negative) Urine Bilirubin (Negative) Urine Urobilinogen (<2.0) mg/dL Ur Leukocyte Esterase (Negative) Urine RBC (0-5) /hpf Urine WBC (0-5) /hpf Ur Squamous Epith Cells (0-4) /hpf Amorphous Sediment (None) /hpf Urine Bacteria (None) /hpf Hyaline Casts (0-2) /lpf Granular Casts (0) /lpf Urine Mucus (None) /hpf Influenza Type A RNA (Not Detectd) Influenza Type B (PCR) (Not Detectd) Blood Type O Positive Blood Type Recheck O Pos Bld Type Recheck Status No Antibody Screen NEGATIVE Crossmatch See Detail Spec Expiration Date 09/24/2019 - 23409/21/19 09/21/19 09/21/19 Range/Units 12:41 12:41 12:41 WBC (3.8-10.6) k/uL RBC (4.30-5.90) m/uL Hgb (13.0-17.5) gm/dL Hct (39.0-53.0) % MCV (80.0-100.0) fL MCH (25.0-35.0) pg MCHC (31.0-37.0) g/dL RDW (11.5-15.5) % Plt Count (150-450) k/uL Neutrophils % Lymphocytes % Monocytes % Eosinophils % Basophils % Neutrophils # Lymphocytes # Monocytes # Eosinophils # Basophils # Differential Comment Manual Slide Review Large Platelets Hypochromasia Poikilocytosis (manual Anisocytosis Macrocytosis Target Cells PT (9.0-12.0) sec INR (<1.2) APTT (22.0-30.0) sec Sodium 142 (137-145) mmol/L Potassium 3.9 (3.5-5.1) mmol/L Chloride 112 H (98-107) mmol/L Carbon Dioxide 22 (22-30) mmol/L Anion Gap 8 mmol/L BUN 50 H (9-20) mg/dL Creatinine 1.46 H (0.66-1.25) mg/dL Est GFR (CKD-EPI)AfAm 51 (>60 ml/min/1.73 sqM) Est GFR (CKD-EPI)NonAf 44 (>60 ml/min/1.73 sqM) Glucose 122 H (74-99) mg/dL Plasma Lactic Acid Ortiz (0.7-2.0) mmol/L Calcium 8.2 L (8.4-10.2) mg/dL Magnesium 2.0 (1.6-2.3) mg/dL Total Bilirubin 1.5 H (0.2-1.3) mg/dL AST 42 (17-59) U/L ALT 37 (4-49) U/L Alkaline Phosphatase 168 H (38-126) U/L NT-Pro-B Natriuret Pep 1370 pg/mL Total Protein 5.1 L (6.3-8.2) g/dL Albumin 2.8 L (3.5-5.0) g/dL Urine Color Urine Appearance (Clear) Urine pH (5.0-8.0) Ur Specific Dodge (1.001-1.035) Urine Protein (Negative) Urine Glucose (UA) (Negative) Urine Ketones (Negative) Urine Blood (Negative) Urine Nitrite (Negative) Urine Bilirubin (Negative) Urine Urobilinogen (<2.0) mg/dL Ur Leukocyte Esterase (Negative) Urine RBC (0-5) /hpf Urine WBC (0-5) /hpf Ur Squamous Epith Cells (0-4) /hpf Amorphous Sediment (None) /hpf Urine Bacteria (None) /hpf Hyaline Casts (0-2) /lpf Granular Casts (0) /lpf Urine Mucus (None) /hpf Influenza Type A RNA Not Detected (Not Detectd) Influenza Type B (PCR) Not Detected (Not Detectd) Blood Type Blood Type Recheck Bld Type Recheck Status Antibody Screen Crossmatch Spec Expiration Date 09/21/19 09/21/19 Range/Units 12:41 14:00 WBC (3.8-10.6) k/uL RBC (4.30-5.90) m/uL Hgb (13.0-17.5) gm/dL Hct (39.0-53.0) % MCV (80.0-100.0) fL MCH (25.0-35.0) pg MCHC (31.0-37.0) g/dL RDW (11.5-15.5) % Plt Count (150-450) k/uL Neutrophils % Lymphocytes % Monocytes % Eosinophils % Basophils % Neutrophils # Lymphocytes # Monocytes # Eosinophils # Basophils # Differential Comment Manual Slide Review Large Platelets Hypochromasia Poikilocytosis (manual Anisocytosis Macrocytosis Target Cells PT 10.2 (9.0-12.0) sec INR 1.0 (<1.2) APTT 23.7 (22.0-30.0) sec Sodium (137-145) mmol/L Potassium (3.5-5.1) mmol/L Chloride (98-107) mmol/L Carbon Dioxide (22-30) mmol/L Anion Gap mmol/L BUN (9-20) mg/dL Creatinine (0.66-1.25) mg/dL Est GFR (CKD-EPI)AfAm (>60 ml/min/1.73 sqM) Est GFR (CKD-EPI)NonAf (>60 ml/min/1.73 sqM) Glucose (74-99) mg/dL Plasma Lactic Acid Ortiz (0.7-2.0) mmol/L Calcium (8.4-10.2) mg/dL Magnesium (1.6-2.3) mg/dL Total Bilirubin (0.2-1.3) mg/dL AST (17-59) U/L ALT (4-49) U/L Alkaline Phosphatase (38-126) U/L NT-Pro-B Natriuret Pep pg/mL Total Protein (6.3-8.2) g/dL Albumin (3.5-5.0) g/dL Urine Color Light Red Urine Appearance Cloudy (Clear) Urine pH 5.0 (5.0-8.0) Ur Specific Dodge 1.014 (1.001-1.035) Urine Protein 1+ H (Negative) Urine Glucose (UA) Negative (Negative) Urine Ketones Negative (Negative) Urine Blood Large H (Negative) Urine Nitrite Negative (Negative) Urine Bilirubin Negative (Negative) Urine Urobilinogen <2.0 (<2.0) mg/dL Ur Leukocyte Esterase Negative (Negative) Urine RBC >182 H (0-5) /hpf Urine WBC 1 (0-5) /hpf Ur Squamous Epith Cells <1 (0-4) /hpf Amorphous Sediment Rare H (None) /hpf Urine Bacteria Rare H (None) /hpf Hyaline Casts 7 H (0-2) /lpf Granular Casts 17 (0) /lpf Urine Mucus Rare H (None) /hpf Influenza Type A RNA (Not Detectd) Influenza Type B (PCR) (Not Detectd) Blood Type Blood Type Recheck Bld Type Recheck Status Antibody Screen Crossmatch Spec Expiration Date Critical Care Time Critical Care Time: Yes Total Critical Care Time: 35 Disposition Clinical Impression: Pancytopenia, Prostate cancer, Pneumonia Disposition: ADMITTED IP TO THIS [facility] Condition: Stable Is patient prescribed a controlled substance at d/c from ED?: No Referrals: Johnny Casarez MD [Primary Care Provider] - 1-2 days Decision to Admit Reason: Admit from EC Decision Date: 09/21/19 Decision Time: 15:36
[2019-09-21 13:07] LABS: Anisocytosis Moderate; Hypochromasia Moderate; MCH 30.3 pg (25.0-35.0); MCHC 32.1 g/dL (31.0-37.0); MCV 94.4 fL (80.0-100.0); Macrocytosis Slight; Mean Platelet Volume 13.4; Platelet Count 62 k/uL (150-450); RBC 1.99 m/uL (4.30-5.90); RDW 21.3 % (11.5-15.5)
[2019-09-21 13:12] LABS: Partial Thromboplastin Time 23.7 sec (22.0-30.0); Prothrombin Time 10.2 sec (9.0-12.0)
[2019-09-21 13:16] LABS: HCT 18.8 % (39.0-53.0)
--- NOTE | 2019-09-21 13:16 | XR ---
EXAMINATION TYPE: XR chest 2V DATE OF EXAM: 09/21/2019 COMPARISON: 09/15/2019 TECHNIQUE: PA and lateral views submitted. HISTORY: Difficulty breathing FINDINGS: Chronic rib deformities are noted on the left. Areas of subsegmental consolidation noted. Arthropathy of the shoulder. Suspect a chronic AC joint separation on the right. No interstitial edema. Atherosc lerotic change aorta. IMPRESSION: 1. Basilar atelectasis favored over pneumonia correlate clinically.
[2019-09-21 13:21] LABS: WBC 0.8 k/uL (3.8-10.6)
[2019-09-21 13:24] LABS: Albumin 2.8 g/dL (3.5-5.0); Calcium 8.2 mg/dL (8.4-10.2); Potassium 3.9 mmol/L (3.5-5.1); Total Bilirubin 1.5 mg/dL (0.2-1.3); Total Protein 5.1 g/dL (6.3-8.2)
[2019-09-21 13:39] LABS: Large Platelets Present; Poikilocytosis (M) Present; Target Cells Present
[2019-09-21 14:15] LABS: Amorphous Sediment,Urine Rare /hpf; Appearance,Urine Cloudy (Clear); Bacteria,Urine Rare /hpf; Bilirubin,Urine Negative (Negative); Blood,Urine Large (Negative); Color,Urine Light Red; Glucose,Urine (UA) Negative (Negative); Granular Casts,Urine 17 /lpf (0); Hyaline Casts,Urine 7 /lpf (0-2); Ketones,Urine Negative (Negative); Leukocyte Esterase,Urine Negative (Negative); Mucus,Urine Rare /hpf; Nitrite,Urine Negative (Negative); Protein,Urine 1+ (Negative); RBC,Urine >182 /hpf (0-5); Specific Gravity,Urine 1.014 (1.001-1.035); Squamous Epithelial Cell,Urine <1 /hpf (0-4); Urobilinogen,Urine <2.0 mg/dL (<2.0); WBC,Urine 1 /hpf (0-5)
[2019-09-21] MEDS ORDERED: CEFEPIME 2 GM in SODIUM CHLORIDE 0.9% 100 ML IVPB STA (15:08)
[2019-09-21] MEDS ORDERED: AZITHROMYCIN 500 MG in SODIUM CHLORIDE 0.9% 250 ML IVPB STA (15:08)
[2019-09-21] MEDS ORDERED: NALOXONE 0.4 MG/ML 1 ML VIAL IV PRN (15:09)
[2019-09-21] MEDS: SODIUM CHLORIDE 0.9% 1,000 ML IV SCH (21:09)
--- NOTE | 2019-09-21 22:44 | P.HPIM ---
History of Present Illness H&P Date: 09/21/19 Chief Complaint: Low hemoglobin This is a 84-year-old patient of Dr. Casarez. Patient had a locally advanced high-grade prostate cancer ,diffuse osseous metastasis. Also had r etroperitoneal adenopathy with right hydronephrosis. He was treated with androgen deprivation therapy and responded very well. PSA came down to less than 1. Subsequently he was noted to have some right renal atrophy. He again had cross immaturity in July 2019 and cystoscopy revealed a 2.5 cm mass of the bladder 4. Suspicious for urothelial carcinoma. He was supposed to have undergone TURP of the tumor but patient was admitted to the hospital with pneumonia and was discharged on 09/18/2019. Admitted with-pneumonia, acute hypoxic respiratory failure, acute COPD exacerbation. UTI with Enterococcus faecalis. Treated with IV Unasyn, bronchodilators, inhaled steroids. Patient felt to have pancytopenia possibly from marrow suppression, acute illness, and need to rule out an element of MDS, and anti-androgen therapy. To be followed as an outpatient. Patient also had right breast cancer that was treated surgically. Patient's urologist is Dr. Kelly. Patient presented to hospital due to hypotension. Patient was seen by his primary care physician for a outpatient follow-up after recent hospital admission. He was noted to be hypotensive and EMS was called and the patient was transported to the emergency department. Denied a complaints of fever or chills. No cough is from production. Denied any gross hematuria. Patient complains of tightness and exertional dyspnea. Chest x-ray showed atelectasis. Hemoglobin 6.0 and WBC 0.8 and platelets 60,000. Urinalysis showed greater than 182 RBCs. Denied any eliseo hematuria. Review of Systems Constitutional: Patient denies any fever or chills . Patient does have generalized weakness and tiredness. Abdomen: Patient denied nausea vomiting and diarrhea and abdominal pain. Cardiovascular: Patient denies any chest pain or short of breath no palpitations. Respiratory: patient denied any cough is from production. No shortness of breath Neurologic: Patient denied any numbness or tingling headache. Musculoskeletal: Patient denies any complaints of joint swelling or deformity. Skin: Negative Psychiatric: Negative Endocrine: No heat or cold intolerance. No recent weight gain. Genitourinary: No dysuria or hematuria. All other 14 point ROS negative except the above Past Medical History Past Medical History: Cancer, Hyperlipidemia, Hypertension Additional Past Medical History / Comment(s): hx prostate cancer pt states currently in remission, rt breast cancer recent mammogram "clean", anemia, rece nt infection lower rt leg tx with antibiotics. bladder mass History of Any Multi-Drug Resistant Organisms: None Reported Past Surgical History: Appendectomy, Breast Surgery, Orthopedic Surgery Additional Past Surgical History / Comment(s): colonoscopy, rt breast mastectomy, arthroscopic knee surgery, spleenectomy Past Anesthesia/Blood Transfusion Reactions: No Reported Reaction Past Psychological History: Anxiety Additional Psychological History / Comment(s): Pt resides with his spouse. He is independent. Smoking Status: Former smoker Past Alcohol Use History: Occasional Additional Past Alcohol Use History / Comment(s): PT started smoking in 1951 and quit in 2004. He was a 2-2.5 ppd smoker. Pt drank alcohol in the past but denies ever having alcoholism. He has drank any alcohol in months. Past Drug Use History: None Reported - Past Family History Father Family Medical History: Cancer Additional Family Medical History / Comment(s): prostate Sister(s) Family Medical History: Cancer Additional Family Medical History / Comment(s): breast Brother(s) Family Medical History: Cancer Additional Family Medical History / Comment(s): colon cancer Mother Family Medical History: No Reported History Additional Family Medical History / Comment(s): Mother lived to be 98yrs old. Medications and Allergies Home Medications Medication Instructions Recorded Confirmed Type Abiraterone Acetate [Zytiga] 250 mg PO DAILY 02/07/19 09/21/19 History Tamsulosin HCl [Flomax] 0.8 mg PO W/SUPPER 02/07/19 09/21/19 History predniSONE 5 mg PO DAILY 02/07/19 09/21/19 History Irbesartan 300 mg PO W/SUPPER 09/15/19 09/21/19 History Tamoxifen Citrate 20 mg PO W/SUPPER 09/15/19 09/21/19 History Xgeva 120mg/1.7ml Subcutaneous 1.7 ml SQ Q90D 09/15/19 09/21/19 History Allergies Allergy/AdvReac Type Severity Reaction Status Date / Time No Known Allergies Allergy Verified 09/21/19 13:02 Physical Exam Vitals: Vital Signs Temp Pulse Pulse Resp BP BP Pulse Ox 09/21/19 18:01 98.1 F 85 17 90/52 93 L 09/21/19 16:25 98.1 F 72 18 116/65 95 09/21/19 15:53 97.4 F L 81 18 94/48 96 09/21/19 15:45 97.4 F L 78 18 96/52 95 09/21/19 15:23 97.4 F L 77 18 93/47 95 09/21/19 15:13 98.0 F 81 18 97/49 95 09/21/19 14:00 77 18 104/46 92 L 09/21/19 13:44 76 09/21/19 13:35 75 09/21/19 13:26 74 09/21/19 13:00 76 20 103/55 94 L 09/21/19 12:17 98.2 F 76 20 96/49 93 L Intake and Output 09/21/19 09/21/19 09/21/19 06:59 14:59 22:59 Intake Total 310 Balance 310 Intake: Blood Product 310 Rc Pheresis 2 As3 Unit 310 [id number] Other: Weight 88.904 kg 88.904 kg PHYSICAL EXAMINATION: Patient is lying in the bed comfortably, no acute distress, awake alert and oriented.. HEENT: Normocephalic. Neck is supple. Pupils reactive. Nostrils clear. Oral cavity is moist. Ears reveal no drainage. Neck reveals no JVD, carotid bruits, or thyromegaly. CHEST EXAMINATION: Trachea is central. Symmetrical expansion. Bibasilar diminished air entry. Lung leo clear to auscultation and percussion. CARDIAC: Normal S1, S2 with no gallops. No murmurs ABDOMEN: Soft. Bowel sounds normal. No organomegaly. No abdominal bruits. Extremities: reveal no edema. No clubbing or cyanosis Neurologically awake, alert, oriented x3 with well-coordinated movements. No focal deficits noted Skin: No rash or skin lesions. Psychiatric: Coperative. Nonsuicidal Musculoskeletal: No joint swelling or deformity. Normal range of motion. Results CBC & Chem 7: 09/21/19 12:41 09/21/19 12:41 Labs: Abnormal Lab Results - Last 24 Hours (Table) 09/21/19 09/21/19 09/21/19 Range/Units 12:41 12:41 12:41 WBC 0.8 L* (3.8-10.6) k/uL RBC 1.99 L (4.30-5.90) m/uL Hgb 6.0 L* (13.0-17.5) gm/dL Hct 18.8 L* (39.0-53.0) % RDW 21.3 H (11.5-15.5) % Plt Count 62 L (150-450) k/uL Chloride 112 H (98-107) mmol/L BUN 50 H (9-20) mg/dL Creatinine 1.46 H (0.66-1.25) mg/dL Glucose 122 H (74-99) mg/dL Calcium 8.2 L (8.4-10.2) mg/dL Total Bilirubin 1.5 H (0.2-1.3) mg/dL Alkaline Phosphatase 168 H (38-126) U/L Total Protein 5.1 L (6.3-8.2) g/dL Albumin 2.8 L (3.5-5.0) g/dL Urine Protein (Negative) Urine Blood (Negative) Urine RBC (0-5) /hpf Amorphous Sediment (None) /hpf Urine Bacteria (None) /hpf Hyaline Casts (0-2) /lpf Urine Mucus (None) /hpf Crossmatch See Detail 09/21/19 Range/Units 14:00 WBC (3.8-10.6) k/uL RBC (4.30-5.90) m/uL Hgb (13.0-17.5) gm/dL Hct (39.0-53.0) % RDW (11.5-15.5) % Plt Count (150-450) k/uL Chloride (98-107) mmol/L BUN (9-20) mg/dL Creatinine (0.66-1.25) mg/dL Glucose (74-99) mg/dL Calcium (8.4-10.2) mg/dL Total Bilirubin (0.2-1.3) mg/dL Alkaline Phosphatase (38-126) U/L Total Protein (6.3-8.2) g/dL Albumin (3.5-5.0) g/dL Urine Protein 1+ H (Negative) Urine Blood Large H (Negative) Urine RBC >182 H (0-5) /hpf Amorphous Sediment Rare H (None) /hpf Urine Bacteria Rare H (None) /hpf Hyaline Casts 7 H (0-2) /lpf Urine Mucus Rare H (None) /hpf Crossmatch Thrombosis Risk Factor Assmnt - DVT/VTE Prophylaxis DVT/VTE Prophylaxis: Mechanical Prophylaxis ordered - Choose All That Apply Any of the Below Risk Factors Present?: Yes Each Factor Represents 1 point: Obesity (BMI >25) Each Risk Factor Represents 2 Points: Malignancy Each Risk Factor Represents 3 Points: Age 75 years or older Thrombosis Risk Factor Assessment Total Risk Factor Score: 6 Thrombosis Risk Factor Assessment Level: High Risk Assessment and Plan Assessment: -Symptomatic anemia with hemoglobin of 6.0 -Pancytopenia, possibly from antiandrogen therapy, rule out MDS -Recent Pneumonia suspect gram-negative organism and enterococcus fecaliths UTI Discharged on 09/18/2019 -Acute COPD exacerbation in an ex-smoker, -Acute hypoxic respiratory failure from pneumonia, corrected -History of prostate cancer that was treated with androgen deprivation therapy to which patient responded well -Acute on Chronic kidney disease with some atrophy of the right kidney, stage III -Bladder tumor pending resection -essential hypertension -Hyperlipidemia -DVT prophylaxis with SCDs Plan: Patient will be transfused with 1 unit of PRBC. Continue to monitor CBC daily. Hematology was consulted. Patient does have bladder tumor and was supposed to follow with Dr. fajardo in as an outpatient. No gross hematuria noted. Further recommendations based on the clinical course. Prognosis is guarded. Discussed with the patient and his at bedside in detail. Time with Patient: Greater than 30
[2019-09-22] MEDS ORDERED: ABIRATERONE ACETATE 250 MG PO SCH (09:00)
[2019-09-22] MEDS: predniSONE 5 MG TAB PO SCH (09:24)
[2019-09-22 09:59] LABS: Anisocytosis Moderate; HCT 21.8 % (39.0-53.0); Hypochromasia Marked; MCH 30.6 pg (25.0-35.0); MCV 95.5 fL (80.0-100.0); Macrocytosis Slight; Mean Platelet Volume 12.8; Poikilocytosis Slight; RBC 2.29 m/uL (4.30-5.90); RDW 20.9 % (11.5-15.5)
[2019-09-22 10:08] LABS: Platelet Count 59 k/uL (150-450)
[2019-09-22 11:03] LABS: Calcium 8.6 mg/dL (8.4-10.2); Potassium 4.1 mmol/L (3.5-5.1)
[2019-09-22 11:32] LABS: Lymphocytes # (M) 0.85 k/uL (1.0-4.8); Monocytes # (M) 0.02 k/uL (0-1.0); Neutrophils # (M) 0.13 k/uL (1.3-7.7); Neutrophils % (M) 13 %; Nucleated Red Blood Cells 5 /100 WBC (0-0); Total Cells Counted 100
[2019-09-22 11:33] LABS: Large Platelets Present; Polychromasia Present
[2019-09-22 12:54] LABS: Reticulocyte % 3.6 % (0.5-2.0)
[2019-09-22] MEDS ORDERED: FUROSEMIDE 10 MG/ML 2 ML VIAL IV ONE (13:04)
[2019-09-22] MEDS ORDERED: FERROUS SULFATE 325 MG TAB PO STA (13:12)
[2019-09-22] MEDS: CALCIUM ACETATE 667 MG TAB PO SCH (15:30)
[2019-09-22] MEDS: CHOLECALCIFEROL 1,000 UNIT TAB PO SCH ×2 (15:30→22:12)
--- NOTE | 2019-09-22 16:05 | P.PN ---
Subjective Progress Note Date: 09/22/19 Principal diagnosis: This is a 84-year-old patient of Dr. Casarez. Patient had a locally advanced high-grade prostate cancer ,diffuse osseous metastasis. Also had retroperitoneal adenopathy with right hydronephrosis. He was treated with androgen deprivation therapy and responded very well. PSA came down to less than 1. Subsequently he was noted to have some right renal atrophy. He again had cross immaturity in July 2019 and cystoscopy revealed a 2.5 cm mass of the bladder 4. Suspicious for urothelial carcinoma. He was supposed to have undergone TURP of the tumor but patient was admitted to the hospital with pneumonia and was discharged on 09/18/2019. Admitted with-pneumonia, acute hypoxic respiratory failure, acute COPD exacerbation. UTI with Enterococcus usman calis. Treated with IV Unasyn, bronchodilators, inhaled steroids. Patient felt to have pancytopenia possibly from marrow suppression, acute illness, and need to rule out an element of MDS, and anti-androgen therapy. To be followed as an outpatient. Patient also had right breast cancer that was treated surgically. Patient's urologist is Dr. Kelly. Patient presented to hospital due to hypotension. Patient was seen by his primary care physician for a outpatient follow-up after recent hospital admission. He was noted to be hypotensive and EMS was called and the patient was transported to the emergency department. Denied a complaints of fever or chills. No cough is from production. Denied any gross hematuria. Patient complains of tightness and exertional dyspnea. Chest x-ray showed atelectasis. Hemoglobin 6.0 and WBC 0.8 and platelets 60,000. Urinalysis showed greater than 182 RBCs. Denied any eliseo hematuria. 09/22/2019 Patient is sitting up in the chair with bilateral legs elevated and appears to be in no acute distress. Patient is currently eating breakfast. Patient states that he feels under the weather and in need a possible transfusion today. Hemoglobin today is 7.0 and currently awaiting a unit of PRBCs today. Family is at the bedside. Home medications have been reordered. Oncology is following. Will repeat a.m. labs. Currently patient denies any chest pain, worsening shortness of breath, or palpitations. Patient is afebrile. Patient denies any nausea or vomiting and has been tolerating diet. Objective - Vital Signs Vital signs: Vital Signs Temp 97.7 F 09/22/19 11:39 Pulse 80 09/22/19 11:39 Resp 18 09/22/19 11:39 BP 102/56 09/22/19 11:39 Pulse Ox 96 09/22/19 11:39 Intake & Output 09/21/19 09/22/19 09/22/19 18:59 06:59 18:59 Intake Total 310 Balance 310 Weight 88.904 kg Intake: Blood Product 310 Rc Pheresis 2 As3 Unit 310 [id number] Other: Voiding Method Toilet Toilet # Voids 1 - Exam Patient is sitting up in the chair comfortably, no acute distress, awake alert and oriented.. HEENT: Normocephalic. Neck is supple. Pupils reactive. Nostrils clear. Oral cavity is moist. Ears reveal no drainage. Neck reveals no JVD, carotid bruits, or thyromegaly. CHEST EXAMINATION: Trachea is central. Symmetrical expansion. Bibasilar diminished air entry. Lung leo clear to auscultation and percussion. CARDIAC: Normal S1, S2 with no gallops. No murmurs ABDOMEN: Soft. Bowel sounds normal. No organomegaly. No abdominal bruits. Extremities: Mild lower extremity edema noted. No clubbing or cyanosis Neurologically awake, alert, oriented x3 with well-coordinated movements. No focal deficits noted Skin: No rash or skin lesions. Psychiatric: Cooperative. Non-suicidal Musculoskeletal: No joint swelling or deformity. Normal range of motion. - Labs CBC & Chem 7: 09/22/19 09:38 09/22/19 09:38 Labs: Abnormal Lab Results - Last 24 Hours (Table) 09/21/19 09/22/19 09/22/19 Range/Units 12:41 09:38 09:38 WBC 1.0 L* (3.8-10.6) k/uL RBC 2.29 L (4.30-5.90) m/uL Hgb 7.0 L (13.0-17.5) gm/dL Hct 21.8 L (39.0-53.0) % RDW 20.9 H (11.5-15.5) % Plt Count 59 L (150-450) k/uL Neutrophils # (Manual) 0.13 L* (1.3-7.7) k/uL Lymphocytes # (Manual) 0.85 L (1.0-4.8) k/uL Nucleated RBCs 5 H (0-0) /100 WBC Retic Count (0.5-2.0) % Chloride 112 H (98-107) mmol/L BUN 50 H (9-20) mg/dL Creatinine 1.43 H (0.66-1.25) mg/dL Crossmatch See Detail 09/22/19 Range/Units 11:40 WBC (3.8-10.6) k/uL RBC (4.30-5.90) m/uL Hgb (13.0-17.5) gm/dL Hct (39.0-53.0) % RDW (11.5-15.5) % Plt Count (150-450) k/uL Neutrophils # (Manual) (1.3-7.7) k/uL Lymphocytes # (Manual) (1.0-4.8) k/uL Nucleated RBCs (0-0) /100 WBC Retic Count 3.6 H (0.5-2.0) % Chloride (98-107) mmol/L BUN (9-20) mg/dL Creatinine (0.66-1.25) mg/dL Crossmatch Microbiology - Last 24 Hours (Table) 09/21/19 12:41 Blood Culture - Preliminary Blood No Growth after 24 hours Assessment and Plan Assessment: -Symptomatic anemia with hemoglobin of 6.0 -Pancytopenia, possibly from antiandrogen therapy, rule out MDS -Recent Pneumonia suspect gram-negative organism and enterococcus fecaliths UTI Discharged on 09/18/2019 -Acute COPD exacerbation is an ex-smoker, -Acute hypoxic respiratory failure from pneumonia, corrected -History of prostate cancer that was treated with androgen deprivation therapy to which patient responded well -Acute on Chronic kidney disease with some atrophy of the right kidney, stage III -Bladder tumor pending resection -essential hypertension -Hyperlipidemia -DVT prophylaxis with SCDs Plan: Patient hemoglobin is 7.0 and currently awaiting 1 unit of PRBCs. Continue to monitor CBC daily. Hematology following. Patient does have bladder tumor and was supposed to follow with Dr. Kelly as an outpatient. No gross hematuria noted. Further recommendations based on the clinical course. Prognosis is guarded. Discussed with the patient and his at bedside in detail.
--- NOTE | 2019-09-22 16:45 | P.CONS ---
History of Present Illness - Reason for Consult Consult date: 09/22/19 pancytopenia Requesting physician: Marcos Bailey - Chief Complaint hypotension, SOB - History of Present Illness Mr. Nye is a very pleasant male who was initially seen by our office on 10/28/17. 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 He had a mastectomy on 12/16/17 final path grade III, 1.8 x 1.5 cm tumor, with 1 SN positive, 6 mm focus, with perinodal extenstion. Additional 6 nodes were negative He had an Oncotype done, placing him in the low risk category, with a score of 10. He was started on tamoxifen in early 02/14. He was seen by Dr. Kelly on 02/02/18 because of progressive hesitancy of urination and poor stream. PSA was markedly elevated at 349.5. Prostate biopsy 02/08/18 revealed malignancy and all 12 cores, high grade. CT and bone scan showed evidence of retroperitoneal adenopathy as well as involvement of the bones. Ultimately he was started on GN Rh agonist, eventually starting zytiga and xgeva. Hgb was noted to be in the 10 range, with labs in 10/18 showing low iron stores. He had an EGD and colonoscopy in 02/15, which was positive only for some mild gastritis. He was placed on FeSO4 1/d, which he is tolerating well. Last seen in [facility] 08/01/20 and was doing well, he continued on Zytiga and pred, iron, tamoxifen. WBC 5.3, Hgb 11.8, plt 180K. Patient was admitted from his primary care as a recent routine CBC showed severe anemia hemoglobin 6, low white blood cell count of 1.1, platelet count of 59,000. He is s/p 1 unit with appropriate increase in Hgb. Patient has been treated recently with multiple courses of antibiotics recently for upper respiratory infection, he is currently denying recent fevers, chills, nausea, difficulty in breathing, shortness of breath, cough abdominal pain, cramping, he does have green stool, no dysuria, hematuria, new or unusual swelling in the legs, no new or unusual pain. There is mention in the chart of a bladder resection planned. Review of Systems 14 point review of systems is negative except as stated in HPI Past Medical History Past Medical History: Cancer, Hyperlipidemia, Hypertension Additional Past Medical History / Comment(s): hx prostate cancer pt states currently in remission, rt breast cancer recent mammogram "clean", anemia, recent infection lower rt leg tx with antibiotics. bladder mass History of Any Multi-Drug Resistant Organisms: None Reported Past Surgical History: Appendectomy, Breast Surgery, Orthopedic Surgery Additional Past Surgical History / Comment(s): colonoscopy, rt breast mastectomy, arthroscopic knee surgery, spleenectomy Past Anesthesia/Blood Transfusion Reactions: No Reported Reaction Past Psychological History: Anxiety Additional Psychological History / Comment(s): Pt resides with his spouse. He is independent. Smoking Status: Former smoker Past Alcohol Use History: Occasional Additional Past Alcohol Use History / Comment(s): PT started smoking in 195 and quit in 2004. He was a 2-2.5 ppd smoker. Pt drank alcohol in the past but denies ever having alcoholism. He has drank any alcohol in months. Past Drug Use History: None Reported - Past Family History Father Family Medical History: Cancer Additional Family Medical History / Comment(s): prostate Sister(s) Family Medical History: Cancer Additional Family Medical History / Comment(s): breast Brother(s) Family Medical History: Cancer Additional Family Medical History / Comment(s): colon cancer Mother Family Medical History: No Reported History Additional Family Medical History / Comment(s): Mother lived to be 98yrs old. Medications and Allergies Home Medications Medication Instructions Recorded Confirmed Type Abiraterone Acetate [Zytiga] 250 mg PO DAILY 02/07/19 09/21/19 History Tamsulosin HCl [Flomax] 0.8 mg PO W/SUPPER 02/07/19 09/21/19 History predniSONE 5 mg PO DAILY 02/07/19 09/21/19 History Irbesartan 300 mg PO W/SUPPER 09/15/19 09/21/19 History Tamoxifen Citrate 20 mg PO W/SUPPER 09/15/19 09/21/19 History Xgeva 120mg/1.7ml Subcutaneous 1.7 ml SQ Q90D 09/15/19 09/21/19 History Allergies Allergy/AdvReac Type Severity Reaction Status Date / Time No Known Allergies Allergy Verified 09/21/19 13:02 Physical Exam Vitals: Vital Signs Temp Pulse Pulse Resp BP BP Pulse Ox 09/22/19 04:26 97.3 F L 63 18 89/57 94 L 09/21/19 21:51 98.3 F 83 16 97/53 93 L 09/21/19 18:01 98.1 F 85 17 90/52 93 L 09/21/19 16:25 98.1 F 72 18 116/65 95 09/21/19 15:53 97.4 F L 81 18 94/48 96 09/21/19 15:45 97.4 F L 78 18 96/52 95 09/21/19 15:23 97.4 F L 77 18 93/47 95 09/21/19 15:13 98.0 F 81 18 97/49 95 09/21/19 14:00 77 18 104/46 92 L 09/21/19 13:44 76 09/21/19 13:35 75 09/21/19 13:26 74 09/21/19 13:00 76 20 103/55 94 L 09/21/19 12:17 98.2 F 76 20 96/49 93 L Intake and Output 09/21/19 09/22/19 09/22/19 22:59 06:59 14:59 Intake Total 310 Balance 310 Intake: Blood Product 310 Rc Pheresis 2 As3 Unit 310 [id number] Other: Voiding Method Toilet # Voids 1 1 Weight 88.904 kg - Constitutional General appearance: average body habitus, cooperative, no acute distress - EENT Eyes: anicteric sclerae, EOMI ENT: hearing grossly normal, normal oropharynx - Neck Neck: no lymphadenopathy - Respiratory Respiratory: bilateral: CTA - Cardiovascular Rhythm: regular Heart sounds: normal: S1, S2 Abnormal Heart Sounds: no systolic murmur, no diastolic murmur, no rub, no S3 Gallop, no S4 Gallop, no click, no other leg Peripheral Edema: bilateral: 2+, Pitting - Gastrointestinal General gastrointestinal: no absent bowel sounds, no decreased bowel sounds, no distended, no hepatomegaly, no hyperactive bowel sounds, normal bowel sounds, no organomegaly, no rigid, no scaphoid, soft, no splenomegaly, no tenderness, no umbilical hernia, no ventral hernia - Integumentary Integumentary: pale - Neurologic Neurologic: CNII-XII intact - Musculoskeletal Musculoskeletal: strength equal bilaterally - Psychiatric Psychiatric: A&O x's 3, appropriate affect, intact judgment & insight Results CBC & Chem 7: 09/22/19 09:38 09/22/19 09:38 Labs: Abnormal Lab Results - Last 24 Hours (Table) 09/21/19 09/21/19 09/21/19 Range/Units 12:41 12:41 12:41 WBC 0.8 L* (3.8-10.6) k/uL RBC 1.99 L (4.30-5.90) m/uL Hgb 6.0 L* (13.0-17.5) gm/dL Hct 18.8 L* (39.0-53.0) % RDW 21.3 H (11.5-15.5) % Plt Count 62 L (150-450) k/uL Chloride 112 H (98-107) mmol/L BUN 50 H (9-20) mg/dL Creatinine 1.46 H (0.66-1.25) mg/dL Glucose 122 H (74-99) mg/dL Calcium 8.2 L (8.4-10.2) mg/dL Total Bilirubin 1.5 H (0.2-1.3) mg/dL Alkaline Phosphatase 168 H (38-126) U/L Total Protein 5.1 L (6.3-8.2) g/dL Albumin 2.8 L (3.5-5.0) g/dL Urine Protein (Negative) Urine Blood (Negative) Urine RBC (0-5) /hpf Amorphous Sediment (None) /hpf Urine Bacteria (None) /hpf Hyaline Casts (0-2) /lpf Urine Mucus (None) /hpf Crossmatch See Detail 09/21/19 09/22/19 Range/Units 14:00 09:38 WBC 1.1 L* (3.8-10.6) k/uL RBC 2.29 L (4.30-5.90) m/uL Hgb 7.0 L (13.0-17.5) gm/dL Hct 21.8 L (39.0-53.0) % RDW 20.9 H (11.5-15.5) % Plt Count 59 L (150-450) k/uL Chloride (98-107) mmol/L BUN (9-20) mg/dL Creatinine (0.66-1.25) mg/dL Glucose (74-99) mg/dL Calcium (8.4-10.2) mg/dL Total Bilirubin (0.2-1.3) mg/dL Alkaline Phosphatase (38-126) U/L Total Protein (6.3-8.2) g/dL Albumin (3.5-5.0) g/dL Urine Protein 1+ H (Negative) Urine Blood Large H (Negative) Urine RBC >182 H (0-5) /hpf Amorphous Sediment Rare H (None) /hpf Urine Bacteria Rare H (None) /hpf Hyaline Casts 7 H (0-2) /lpf Urine Mucus Rare H (None) /hpf Crossmatch Chest x-ray: report reviewed Assessment and Plan (1) Pancytopenia Narrative/Plan: Pancytopenia and anemia workup has been ordered. Suspected that pancytopenia is due to recurrent illness along with multiple cancer diagnoses, mult treatments, and additional stresses. Transfuse to keep patient's hemoglobin greater than 7 or if he symptomatic. Keep platelet counts greater than 10,000, unless patient is symptomatic. G-CSF has been initiated for low absolute neutrophil count. Cancer treatments held CBC daily Current Visit: Yes Status: Acute Priority: High Code(s): D61.818 - OTHER PANCYTOPENIA SNOMED Code(s): 514264884 (2) Breast cancer in male Narrative/Plan: Last evaluated in the office on 09/04/19. No clinical evidence of recurrence of breast cancer. Plan is to continue tamoxifen but, at this time we are going to hold it, along with his other treatments for cancer, to see what happens to his blood counts. Current Visit: Yes Status: Chronic Priority: Medium Code(s): C50.929 - MALIGNANT NEOPLASM OF UNSP SITE OF UNSPECIFIED MALE BREAST SNOMED Code(s): 284215497 (3) Prostate cancer Narrative/Plan: Patient follows with urology, Dr. Kelly. Recommend consultation with Urology as patient is needing a bladder mass biopsy but I understand this hasn't been able to be done. Maybe it can be done while he is inpatient. Zytiga, 250 mg daily held. Continue 5 mg daily of prednisone. Patient is getting Xgeva outpatient, this can be rescheduled when he is discharged. PSA ordered. His disease has been controlled on current regimen Current Visit: Yes Status: Chronic Priority: Medium Code(s): C61 - MALIGNANT NEOPLASM OF PROSTATE SNOMED Code(s): 768945619 (4) Malignant neoplasm of bladder, unspecified Narrative/Plan: Recent mentioned in the notes of bladder malignancy with plans for resection. WBC/ANC will not likely be satisfactory for a Surgeon to consider procedure at this time. Current Visit: Yes Status: Acute Priority: High Code(s): C67.9 - MALIGNANT NEOPLASM OF BLADDER, UNSPECIFIED SNOMED Code(s): 812197530
[2019-09-22] MEDS ORDERED: TAMOXIFEN 10 MG TAB PO SCH (17:30)
[2019-09-22] MEDS ORDERED: IRBESARTAN 300 MG PO SCH (17:30)
[2019-09-22 17:31] LABS: % Iron Saturation 39.66 (15.00-50.00)
[2019-09-22] MEDS: TAMSULOSIN 0.4 MG CAP.ER.24H PO SCH (18:07)
[2019-09-22] MEDS: SODIUM CHLORIDE 0.9% 1,000 ML IV SCH (18:07)
[2019-09-22] MEDS: FILGRASTIM-SNDZ 480 MCG/0.8 ML SYRINGE SQ SCH (18:08)
[2019-09-22] MEDS: CYANOCOBALAMIN 500 MCG TAB PO SCH (18:08)
[2019-09-22 18:31] LABS: Ferritin 1565.7 ng/mL (22.0-322.0); Protein, Total 4.7 g/dL (6.2-8.2)
[2019-09-23 08:25] LABS: Anisocytosis Moderate; Hypochromasia Marked; MCH 30.2 pg (25.0-35.0); MCHC 31.2 g/dL (31.0-37.0); MCV 96.8 fL (80.0-100.0); Macrocytosis Slight; Mean Platelet Volume 12.7; Poikilocytosis Slight; RBC 1.93 m/uL (4.30-5.90); RDW 21.8 % (11.5-15.5)
[2019-09-23 08:44] LABS: Potassium 3.7 mmol/L (3.5-5.1); WBC 0.9 k/uL (3.8-10.6)
[2019-09-23 08:46] LABS: Platelet Count 62 k/uL (150-450)
[2019-09-23 08:58] LABS: HCT 18.7 % (39.0-53.0); HGB 5.8 gm/dL (13.0-17.5)
[2019-09-23 09:25] LABS: Free Kappa Lt Chain Qnt, Serum 1.86 mg/dL (0.33-1.94)
[2019-09-23] MEDS: CYANOCOBALAMIN 500 MCG TAB PO SCH (09:26)
[2019-09-23] MEDS: FILGRASTIM-SNDZ 480 MCG/0.8 ML SYRINGE SQ SCH (09:26)
[2019-09-23] MEDS: CHOLECALCIFEROL 1,000 UNIT TAB PO SCH ×2 (09:26→20:24)
[2019-09-23] MEDS: CALCIUM ACETATE 667 MG TAB PO SCH ×2 (09:27→18:13)
[2019-09-23 09:40] LABS: Large Platelets Present
[2019-09-23 09:41] LABS: Hypochromasia (M) Present
[2019-09-23] MEDS: predniSONE 5 MG TAB PO SCH (11:54)
--- NOTE | 2019-09-23 15:26 | CT ---
EXAMINATION TYPE: CT abdomen pelvis wo con DATE OF EXAM: 09/23/2019 COMPARISON: None HISTORY: Right lower quadrant pain. CT DLP: 739.1 mGycm Automated exposure control for dose reduction was used. Multiple axial sections were obtained from the diaphragm to the floor the pelvis without contrast. FINDINGS: There is left pleural effusion and left basilar airspace consolidation and atelectasis. There is mode rate size hiatal hernia. Heart size is normal. Liver shows no focal defect. Spleen is absent. There is no evidence of pancreatic mass. Gallbladder i s contracted. There is no adrenal mass. Kidneys show posterior 3 cm left side cortical cyst. There is no hydronephr osis. Ureters are not dilated. There is no retroperitoneal adenopathy. Abdominal aorta is atheromatou s. Urinary bladder is large. There is suggestion of some focal bladder wall thickening on the right s clare. There is probably left side bladder diverticulum.. Prostate is mildly enlarged. There is no ingu inal hernia. There is no free fluid in the pelvis. There are numerous diverticula of the sigmoid colon. Appendix i s not seen. There is no sign of thickened appendix. There are multiple small bowel loops distended with fluid up to 3.5 cm. There is degenerative disc space narrowing in the lumbar spine with vacuum disc. There is no compress ion fracture. There is hypertrophic facet arthropathy in the lower lumbar spine. Bony pelvis is intac t. IMPRESSION: Moderate sigmoid diverticulosis without sign of diverticulitis. Left lower lobe atelectasis and infiltrate with pleural fluid. Hiatal hernia. No evidence of renal stone or obstruction. Distended small bowel suggestive of ileus. No definite transition point seen. Possible urinary bladder wall thickening on the posterior right side measuring 9 mm. There is probabl y a 3 cm diverticulum of the posterior urinary bladder on the left side. Cystoscopy recommended for further evaluation. No evidence of appendicitis. Multilevel lumbar spondylotic changes.
[2019-09-23] MEDS: SODIUM CHLORIDE 0.9% 1,000 ML IV SCH (16:33)
[2019-09-23] MEDS: TAMSULOSIN 0.4 MG CAP.ER.24H PO SCH (18:13)
--- NOTE | 2019-09-23 22:16 | P.PN ---
Subjective Progress Note Date: 09/23/19 Principal diagnosis: Symptomatic anemia This is a 84-year-old patient of Dr. Casarez. Patient had a locally advanced high-grade prostate cancer ,diffuse osseous metastasis. Also had retroperitoneal adenopathy with right hydronephrosis. He was treated with androgen deprivation therapy and responded very well. PSA came down to less than 1. Subsequently he was noted to have some right renal atrophy. He again had cross immaturity in July 2019 and cystoscopy revealed a 2.5 cm mass of the bladder 4. Suspicious for urothelial carcinoma. He was supposed to have undergone TURP of the tumor but patient was admitted to the hospital with pneumonia and was discharged on 09/18/2019. Admitted with-pneumonia, acute hypoxic respiratory failure, acute COPD exacerbation. UTI with Enterococcus faecalis. Treated with IV Unasyn, bronchodilators, inhaled steroids. Patient felt to have pancytopenia possibly from marrow suppression, acute illness, and need to rule out an element of MDS, and anti-androgen therapy. To be followed as an outpatient. Patient also had right breast cancer that was treated surgically. Patient's urologist is Dr. Kelly. Patient presented to hospital due to hypotension. Patient was seen by his primary care physician for a outpatient follow-up after recent hospital admission. He was noted to be hypotensive and EMS was called and the patient w as transported to the emergency department. Denied a complaints of fever or chills. No cough is from production. Denied any gross hematuria. Patient complains of tightness and exertional dyspnea. Chest x-ray showed atelectasis. Hemoglobin 6.0 and WBC 0.8 and platelets 60,000. Urinalysis showed greater than 182 RBCs. Denied any eliseo hematuria. 09/22/2019 Patient is sitting up in the chair with bilateral legs elevated and appears to be in no acute distress. Patient is currently eating breakfast. Patient states that he feels under the weather and in need a possible transfusion today. He moglobin today is 7.0 and currently awaiting a unit of PRBCs today. Family is at the bedside. Home medications have been reordered. Oncology is following. Will repeat a.m. labs. Currently patient denies any chest pain, worsening shortness of breath, or palpitations. Patient is afebrile. Patient denies any nausea or vomiting and has been tolerating diet. 09/23/2019 Patient is currently sitting in the chair. Does complain of right lower abdominal pain. CT of abdomen pelvis was ordered. Showed small pleural effusions and suspected small bowel ileus. Patient is being undergone pain med ications. Gentle hydration and patient is being transfused with 1 unit of PRBC due to hemoglobin dropped to 5.8 today. We will continue to follow closely. Patient will be kept nothing by mouth. Oncology is on board. Patient is still neutropenic and thrombocytopenic. Patient has been afebrile ot [facility]wise. Shortness of breath at baseline. Denied any nausea vomiting. No diarrhea. Current medications reviewed. Objective - Vital Signs Vital signs: Vital Signs Temp 98.2 F 09/23/19 20:53 Pulse 72 09/23/19 20:53 Resp 16 09/23/19 20:53 BP 107/61 09/23/19 20:53 Pulse Ox 96 09/23/19 20:53 Intake & Output 09/23/19 09/23/19 09/24/19 06:59 18:59 06:59 Intake Total 1190 810 Output Total 945 Balance 1190 -135 Intake: Oral 1190 500 Blood Product 310 Rc Pheresis As-3 Unit 310 [id number] Output: Urine 945 Straight 620 Other: Voiding Method Toilet Toilet # Voids 2 2 # Bowel Movements 1 - Exam Patient is sitting up in the chair comfortably, no acute distress, awake alert and oriented.. HEENT: Normocephalic. Neck is supple. Pupils reactive. Nostrils clear. Oral cavity is moist. Ears reveal no drainage. Neck reveals no JVD, carotid bruits, or thyromegaly. CHEST EXAMINATION: Trachea is central. Symmetrical expansion. Bibasilar diminished air entry. Left basilar crackles. Nonlabored breathing.. CARDIAC: Normal S1, S2 with no gallops. No murmurs ABDOMEN: Soft. Bowel sounds normal. No organomegaly. No abdominal bruits. Extremities: Mild lower extremity edema noted. No clubbing or cyanosis Neurologically awake, alert, oriented x3 with well-coordinated movements. No focal deficits noted Skin: No rash or skin lesions. Psychiatric: Cooperative. Non-suicidal Musculoskeletal: No joint swelling or deformity. Normal range of motion. - Labs CBC & Chem 7: 09/23/19 07:17 09/23/19 07:17 Labs: Abnormal Lab Results - Last 24 Hours (Table) 09/21/19 09/23/19 09/23/19 Range/Units 12:41 07:17 07:17 WBC 0.9 L* (3.8-10.6) k/uL RBC 1.93 L (4.30-5.90) m/uL Hgb 5.8 L* (13.0-17.5) gm/dL Hct 18.7 L* (39.0-53.0) % RDW 21.8 H (11.5-15.5) % Plt Count 62 L (150-450) k/uL Chloride 111 H (98-107) mmol/L BUN 46 H (9-20) mg/dL Creatinine 1.39 H (0.66-1.25) mg/dL Calcium 8.0 L (8.4-10.2) mg/dL Crossmatch See Detail Microbiology - Last 24 Hours (Table) 09/21/19 12:41 Blood Culture - Preliminary Blood No Growth after 48 hours Assessment and Plan Assessment: -Abdominal pain right lower quadrant. Small bowel ileus as per CT. -Symptomatic anemia with hemoglobin of 6.0--7.0--5.8 -Pancytopenia, possibly from antiandrogen therapy, rule out MDS -Recent Pneumonia suspect gram-negative organism and enterococcus fecaliths UTI Discharged on 09/18/2019 -Acute COPD exacerbation is an ex-smoker, -Acute hypoxic respiratory failure from pneumonia, corrected -History of prostate cancer that was treated with androgen deprivation therapy to which patient responded well -Acute on Chronic kidney disease with some atrophy of the right kidney, stage III -Bladder tumor pending resection -essential hypertension -Hyperlipidemia -DVT prophylaxis with SCDs Plan: Patient hemoglobin is 5.8 and currently awaiting 1 unit of PRBCs. Continue to monitor CBC daily. Hematology following. Patient does have bladder tumor and was supposed to follow with Dr. Kelly as an outpatient. No gross hematuria noted. Further recommendations based on the clinical course. Prognosis is guarded. Discussed with the patient and his at bedside in detail. Time with Patient: Greater than 30
[2019-09-24 07:30] LABS: Potassium 3.6 mmol/L (3.5-5.1)
[2019-09-24 07:35] LABS: Anisocytosis Moderate; HCT 20.9 % (39.0-53.0); Hypochromasia Moderate; MCH 29.2 pg (25.0-35.0); MCHC 30.2 g/dL (31.0-37.0); MCV 96.8 fL (80.0-100.0); Macrocytosis Slight; Mean Platelet Volume 12.2; Poikilocytosis Slight; RBC 2.16 m/uL (4.30-5.90); RDW 22.7 % (11.5-15.5)
[2019-09-24 07:40] LABS: HGB 6.3 gm/dL (13.0-17.5)
[2019-09-24 07:41] LABS: Platelet Count 55 k/uL (150-450)
[2019-09-24 08:21] LABS: Neutrophils % (M) 21 %
[2019-09-24 08:23] LABS: Basophils # (M) 0.01 k/uL (0-0.2); Lymphocytes # (M) 0.78 k/uL (1.0-4.8); Monocytes # (M) 0.02 k/uL (0-1.0); Neutrophils # (M) 0.21 k/uL (1.3-7.7); Nucleated Red Blood Cells 5 /100 WBC (0-0); Total Cells Counted 200
[2019-09-24 08:24] LABS: Large Platelets Present; Polychromasia Present
[2019-09-24] MEDS: CYANOCOBALAMIN 500 MCG TAB PO SCH (08:57)
[2019-09-24] MEDS: CHOLECALCIFEROL 1,000 UNIT TAB PO SCH ×2 (08:58→20:07)
[2019-09-24] MEDS: CALCIUM ACETATE 667 MG TAB PO SCH ×2 (08:58→16:52)
[2019-09-24] MEDS: FILGRASTIM-SNDZ 480 MCG/0.8 ML SYRINGE SQ SCH (08:58)
[2019-09-24] MEDS: TAMSULOSIN 0.4 MG CAP.ER.24H PO SCH (16:52)
[2019-09-24] MEDS ORDERED: SODIUM CHLORIDE 0.9% 500 ML 500 ML IV ONE (16:56)
[2019-09-24] MEDS: SODIUM CHLORIDE 0.9% 1,000 ML IV SCH (18:17)
--- NOTE | 2019-09-24 21:24 | P.PN ---
Subjective Progress Note Date: 09/24/19 The patient remains weak generally and states that he just does not feel well. Appetite is diminished. He has somewhat generalized edema more so on the lower extremities. No obvious bleeding. Abdominal pain has diminished versus yesterday. No nausea/vomiting/fever or chills. No obvious bleeding. He did have evidence of significant a retained urine on bladder scan, and is status post Nielson placement Objective - Vital Signs Vital signs: Vital Signs Temp 99 F 09/24/19 21:00 Pulse 76 09/24/19 21:00 Resp 18 09/24/19 21:00 BP 100/54 09/24/19 21:00 Pulse Ox 93 L 09/24/19 21:00 Intake & Output 09/24/19 09/24/19 09/25/19 06:59 18:59 06:59 Intake Total 280 630 Output Total 1050 1150 Balance -770 -520 Intake: Intake, IV Titration 40 Amount Sodium Chloride 0.9% 1, 40 000 ml @ 20 mls/hr IV . Q24H [facility] Rx#:[id number] Oral 240 Blood Product 630 Rc Pheresis 2 As3 Unit 310 [id number] Output: Urine 1050 1150 Straight 500 900 Other: Voiding Method Toilet Toilet # Voids 1 - Constitutional General appearance: Present: no acute distress - EENT Eyes: Present: EOMI ENT: Present: hearing grossly normal, normal oropharynx - Respiratory Respiratory: bilateral: CTA - Cardiovascular Rhythm: regular Heart sounds: normal: S1, S2 - Gastrointestinal General gastrointestinal: Present: soft - Integumentary Integumentary: Present: normal - Neurologic Neurologic: Present: CNII-XII intact - Musculoskeletal Musculoskeletal Comment(s): bilateral lower extremity edema Musculoskeletal: Present: generalized weakness - Psychiatric Psychiatric: Present: A&O x's 3 - Labs CBC & Chem 7: 09/24/19 06:57 09/24/19 06:57 Labs: Abnormal Lab Results - Last 24 Hours (Table) 09/21/19 09/24/19 09/24/19 Range/Units 12:41 06:57 06:57 WBC 1.0 L* (3.8-10.6) k/uL RBC 2.16 L (4.30-5.90) m/uL Hgb 6.3 L* (13.0-17.5) gm/dL Hct 20.9 L (39.0-53.0) % MCHC 30.2 L (31.0-37.0) g/dL RDW 22.7 H (11.5-15.5) % Plt Count 55 L (150-450) k/uL Neutrophils # (Manual) 0.21 L* (1.3-7.7) k/uL Lymphocytes # (Manual) 0.78 L (1.0-4.8) k/uL Nucleated RBCs 5 H (0-0) /100 WBC BUN 42 H (9-20) mg/dL Creatinine 1.34 H (0.66-1.25) mg/dL Glucose 101 H (74-99) mg/dL Calcium 8.0 L (8.4-10.2) mg/dL Crossmatch See Detail Microbiology - Last 24 Hours (Table) 09/21/19 12:41 Blood Culture - Preliminary Blood No Growth after 72 hours Assessment and Plan (1) Pancytopenia Narrative/Plan: The etiology is currently unclear. When presenting with this during his recent admission, it was felt that this was likely due to marrow suppression from a combination of recurrent infections, antibiotics, and some underlying suppression from his antineoplastic therapy. However pancytopenia has persisted and worsened despite no evidence of infection currently. Pancytopenia workup is mostly negative with only parvovirus serology pending at this time. The patient is currently on G-CSF, without much WBC response. 1 unit PRBC transfusions today. Her due to monitor and transfuse to keep hemoglobin greater than 7 and platelets greater than 10. If parvovirus serology is negative and counts don't show improvement in the next 1-2 days, then a bone marrow aspiration biopsy will be performed. The procedure was discussed with the patient. Current Visit: Yes Status: Acute Priority: High Code(s): D61.818 - OTHER PANCYTOPENIA SNOMED Code(s): 543522064 (2) Prostate cancer Narrative/Plan: Metastatic prostate cancer, in good remission on Lupron and Zytiga. No evidence of progression and therefore at this time this is not felt to be rela travis to his pancytopenia. Zytiga is on hold to reduce myelosuppression, but this would not be considered a major factor for marrow suppression anyway. In addition despite holding the medication that has not been improvement in his counts. Current Visit: Yes Status: Chronic Priority: Medium Code(s): C61 - MALIGNANT NEOPLASM OF PROSTATE SNOMED Code(s): 413809392 (3) Breast cancer in male Narrative/Plan: Early stage breast cancer status post surgery, on adjuvant tamoxifen with no evidence of recurrence. Again at this time this is not felt to be a factor in his current presentation Current Visit: Yes Status: Chronic Priority: Medium Code(s): C50.929 - MALIGNANT NEOPLASM OF UNSP SITE OF UNSPECIFIED MALE BREAST SNOMED Code(s): 207224600 (4) Malignant neoplasm of bladder, unspecified Narrative/Plan: Again, so far this is felt to be localized disease. Intervention is on hold pending improvement in his current situation. Urology is following Current Visit: Yes Status: Acute Priority: High Code(s): C67.9 - MALIGNANT NEOPLASM OF BLADDER, UNSPECIFIED SNOMED Code(s): 651119626 (5) Abdominal pain, right lower quadrant Narrative/Plan: CT of the abdomen and pelvis was done yesterday showing no significant findings. The patient did have significant urinary retention and required a Nielson. Since then he does report improvement in the pain. Current Visit: Yes Status: Acute Code(s): R10.31 - RIGHT LOWER QUADRANT PAIN SNOMED Code(s): 912694532
--- NOTE | 2019-09-24 23:47 | P.PN ---
Subjective Progress Note Date: 09/24/19 Principal diagnosis: Symptomatic anemia This is a 84-year-old patient of Dr. Casarez. Patient had a locally advanced high-grade prostate cancer ,diffuse osseous metastasis. Also had retroperitoneal adenopathy with right hydronephrosis. He was treated with androgen deprivation therapy and responded very well. PSA came down to less than 1. Subsequently he was noted to have some right renal atrophy. He again had cross immaturity in July 2019 and cystoscopy revealed a 2.5 cm mass of the bladder 4. Suspicious for urothelial carcinoma. He was supposed to have undergone TURP of the tumor but patient was admitted to the hospital with pneumonia and was discharged on 09/18/2019. Admitted with-pneumonia, acute hypoxic respiratory failure, acute COPD exacerbation. UTI with Enterococcus faecalis. Treated with IV Unasyn, bronchodilators, inhaled steroids. Patient felt to have pancytopenia possibly from marrow suppression, acute illness, and need to rule out an element of MDS, and anti-androgen therapy. To be followed as an outpatient. Patient also had right breast cancer that was treated surgically. Patient's urologist is Dr. Kelly. Patient presented to hospital due to hypotension. Patient was seen by his primary care physician for a outpatient follow-up after recent hospital admission. He was noted to be hypotensive and EMS was called and the patient w as transported to the emergency department. Denied a complaints of fever or chills. No cough is from production. Denied any gross hematuria. Patient complains of tightness and exertional dyspnea. Chest x-ray showed atelectasis. Hemoglobin 6.0 and WBC 0.8 and platelets 60,000. Urinalysis showed greater than 182 RBCs. Denied any eliseo hematuria. 09/22/2019 Patient is sitting up in the chair with bilateral legs elevated and appears to be in no acute distress. Patient is currently eating breakfast. Patient states that he feels under the weather and in need a possible transfusion today. He moglobin today is 7.0 and currently awaiting a unit of PRBCs today. Family is at the bedside. Home medications have been reordered. Oncology is following. Will repeat a.m. labs. Currently patient denies any chest pain, worsening shortness of breath, or palpitations. Patient is afebrile. Patient denies any nausea or vomiting and has been tolerating diet. 09/23/2019 Patient is currently sitting in the chair. Does complain of right lower abdominal pain. CT of abdomen pelvis was ordered. Showed small pleural effusions and suspected small bowel ileus. Patient is being undergone pain med ications. Gentle hydration and patient is being transfused with 1 unit of PRBC due to hemoglobin dropped to 5.8 today. We will continue to follow closely. Patient will be kept nothing by mouth. Oncology is on board. Patient is still neutropenic and thrombocytopenic. Patient has been afebrile ot herwise. Shortness of breath at baseline. Denied any nausea vomiting. No diarrhea. 09/24/2019 Patient is currently sitting in the chair. Shortness of breath is improved slightly. Patient did have bowel movements. Ileus has resolved. Abdominal pain improved as well. A patient was started on oral diet. Otherwise hemoglobin is at 6.3 today after 1 unit of PRBC yesterday. Oncology is following. Plan for bone marrow biopsy to rule out MDS. Patient has been afebrile otherwise. No complaints of chest pain. No nausea vomiting. No cough or sputum production. Patient was placed on Nielson catheter due to urinary retention. Current medications reviewed. Active Medications Calcium Acetate (Phoslo) 667 mg PO BID-W/MEALS [facility] Last Admin: 09/24/19 16:52 Dose: 667 mg Documented by: Cholecalciferol (Vitamin D3 (25 Mcg = 1000 Iu)) 1,000 unit PO BID [facility] Last Admin: 09/24/19 20:07 Dose: 1,000 unit Documented by: Cyanocobalamin (Vitamin B-12) 1,000 mcg PO DAILY [facility] Last Admin: 09/24/19 08:57 Dose: 1,000 mcg Documented by: Filgrastim (Zarxio) 480 mcg SQ DAILY [facility] Last Admin: 09/24/19 08:58 Dose: 480 mcg Documented by: Sodium Chloride (Saline 0.9%) 1,000 mls @ 50 mls/hr IV .Q20H [facility] Last Admin: 09/24/19 18:17 Dose: 50 mls/hr Documented by: Naloxone HCl (Narcan) 0.2 mg IV Q2M PRN PRN Reason: Opioid Reversal Tamsulosin HCl (Flomax) 0.8 mg PO W/SUPPER [facility] Last Admin: 09/24/19 16:52 Dose: 0.8 mg Documented by: Objective - Vital Signs Vital signs: Vital Signs Temp 99.0 F 09/24/19 14:00 Pulse 83 09/24/19 14:00 Resp 16 09/24/19 15:59 BP 99/61 09/24/19 14:00 Pulse Ox 97 09/24/19 14:00 Intake & Output 09/23/19 09/24/19 09/24/19 18:59 06:59 18:59 Intake Total 810 280 630 Output Total 945 1050 250 Balance -135 -770 380 Intake: Intake, IV Titration 40 Amount Sodium Chloride 0.9% 1, 40 000 ml @ 20 mls/hr IV . Q24H [facility] Rx#:[id number] Oral 500 240 Blood Product 310 630 Rc Pheresis 2 As3 Unit 310 [id number] Rc Pheresis As-3 Unit 310 [id number] Output: Urine 945 1050 250 Straight 620 500 Other: Voiding Method Toilet Toilet Toilet # Voids 2 1 - Exam Patient is sitting up in the chair comfortably, no acute distress, awake alert and oriented.. HEENT: Normocephalic. Neck is supple. Pupils reactive. Nostrils clear. Oral cavity is moist. Ears reveal no drainage. Neck reveals no JVD, carotid bruits, or thyromegaly. CHEST EXAMINATION: Trachea is central. Symmetrical expansion. Bibasilar diminished air entry. Left basilar crackles. Nonlabored breathing.. CARDIAC: Normal S1, S2 with no gallops. No murmurs ABDOMEN: Soft. Bowel sounds normal. No organomegaly. No abdominal bruits. Extremities: Mild lower extremity edema noted. No clubbing or cyanosis Neurologically awake, alert, oriented x3 with well-coordinated movements. No focal deficits noted Skin: No rash or skin lesions. Psychiatric: Cooperative. Non-suicidal Musculoskeletal: No joint swelling or deformity. Normal range of motion. - Labs CBC & Chem 7: 09/24/19 06:57 09/24/19 06:57 Labs: Abnormal Lab Results - Last 24 Hours (Table) 09/21/19 09/24/19 09/24/19 Range/Units 12:41 06:57 06:57 WBC 1.0 L* (3.8-10.6) k/uL RBC 2.16 L (4.30-5.90) m/uL Hgb 6.3 L* (13.0-17.5) gm/dL Hct 20.9 L (39.0-53.0) % MCHC 30.2 L (31.0-37.0) g/dL RDW 22.7 H (11.5-15.5) % Plt Count 55 L (150-450) k/uL Neutrophils # (Manual) 0.21 L* (1.3-7.7) k/uL Lymphocytes # (Manual) 0.78 L (1.0-4.8) k/uL Nucleated RBCs 5 H (0-0) /100 WBC BUN 42 H (9-20) mg/dL Creatinine 1.34 H (0.66-1.25) mg/dL Glucose 101 H (74-99) mg/dL Calcium 8.0 L (8.4-10.2) mg/dL Crossmatch See Detail Microbiology - Last 24 Hours (Table) 09/21/19 12:41 Blood Culture - Preliminary Blood No Growth after 72 hours Assessment and Plan Assessment: -Abdominal pain right lower quadrant. Small bowel ileus as per CT. Resolved now. -Symptomatic anemia with hemoglobin of 6.0--7.0--5.8--6.3 -Pancytopenia, possibly from antiandrogen therapy, rule out MDS -Recent Pneumonia suspect gram-negative organism and enterococcus fecaliths UTI Discharged on 09/18/2019 -Acute COPD exacerbation is an ex-smoker, -Acute hypoxic respiratory failure from pneumonia, corrected -History of prostate cancer that was treated with androgen deprivation therapy to which patient responded well -Acute on Chronic kidney disease with some atrophy of the right kidney, stage III -Bladder tumor pending resection -essential hypertension -Hyperlipidemia -DVT prophylaxis with SCDs Plan: Patient hemoglobin is 6.3 and currently awaiting 1 unit of PRBCs. Continue to monitor CBC daily. Hematology following. Patient does have bladder tumor and was supposed to follow with Dr. Kelly as an outpatient. No gross hematuria noted. Further recommendations based on the clinical course. Prognosis is guarded. Discussed with the patient and his at bedside in detail. Time with Patient: Greater than 30
[2019-09-25 08:18] LABS: Anisocytosis Moderate; Hypochromasia Moderate; MCH 30.9 pg (25.0-35.0); MCHC 31.9 g/dL (31.0-37.0); Macrocytosis Slight; Mean Platelet Volume 12.9; Poikilocytosis Slight; RBC 1.95 m/uL (4.30-5.90); RDW 21.4 % (11.5-15.5)
[2019-09-25 08:22] LABS: Platelet Count 69 k/uL (150-450)
[2019-09-25 08:40] LABS: Albumin 2.2 g/dL (3.5-5.0); Calcium 7.6 mg/dL (8.4-10.2); Potassium 3.8 mmol/L (3.5-5.1); Total Protein 4.3 g/dL (6.3-8.2)
[2019-09-25] MEDS: CALCIUM ACETATE 667 MG TAB PO SCH ×2 (09:19→17:33)
[2019-09-25] MEDS: CYANOCOBALAMIN 500 MCG TAB PO SCH (09:19)
[2019-09-25] MEDS: CHOLECALCIFEROL 1,000 UNIT TAB PO SCH ×2 (09:19→20:16)
[2019-09-25] MEDS: FILGRASTIM-SNDZ 480 MCG/0.8 ML SYRINGE SQ SCH (09:21)
[2019-09-25 10:36] LABS: Neutrophils % (M) 26 %
[2019-09-25 10:37] LABS: Band Neutrophils % 1 %; Lymphocytes # (M) 0.71 k/uL (1.0-4.8); Monocytes # (M) 0.02 k/uL (0-1.0); Nucleated Red Blood Cells 0 /100 WBC (0-0); Total Cells Counted 100
[2019-09-25 10:40] LABS: Large Platelets Present; Polychromasia Present; Target Cells Present
[2019-09-25 10:42] LABS: Parvovirus B-19 IgM Antibodies 0.06 INDEX (<=0.90)
[2019-09-25 10:43] LABS: Parvovirus B-19 IgG Antibodies 1.88 INDEX (<=0.90)
--- NOTE | 2019-09-25 15:44 | P.PN ---
Subjective Progress Note Date: 09/25/19 Principal diagnosis: Advanced high-grade prostate cancer This is a 84-year-old patient of Dr. Casarez. Patient has a locally advanced high-grade prostate cancer. Patient states is generally not feeling well, denies changes in thought process, denies shortness of breath, states having productive cough with clear phlegm, denies chest pain, dizziness, palpitations, nausea, vomiting, c/o decrease in appetite, with some diarrhea, states baseline of urine is red tinged in color. Objective - Vital Signs Vital signs: Vital Signs Temp 98 F 09/25/19 12:34 Pulse 87 09/25/19 12:34 Resp 18 09/25/19 12:34 BP 117/62 09/25/19 12:34 Pulse Ox 93 L 09/25/19 12:34 Intake & Output 09/24/19 09/25/19 09/25/19 18:59 06:59 18:59 Intake Total 630 1400 650 Output Total 1150 Balance -520 1400 650 Intake: Intake, IV Titration 600 250 Amount Sodium Chloride 0.9% 1, 600 250 000 ml @ 50 mls/hr IV . Q20H [facility] Rx#:[id number] Oral 800 400 Blood Product 630 0 Rc Pheresis 2 As3 Unit 310 [id number] Rc Pheresis As-3 Unit 0 [id number] Output: Urine 1150 Straight 900 Other: Voiding Method Toilet Indwelling Catheter Indwelling Catheter # Voids 2 2 - Constitutional General appearance: Present: cooperative, no acute distress, obese - EENT Eyes: Present: anicteric sclerae, EOMI, dentition normal, normal appearance ENT: Present: hearing grossly normal, normal oropharynx - Neck Neck: Present: normal ROM. Absent: lymphadenopathy - Respiratory Respiratory: bilateral: CTA - Cardiovascular Rhythm: regular Heart sounds: normal: S1, S2 Abnormal Heart Sounds: Absent: systolic murmur, diastolic murmur, rub, S3 Gallop, S4 Gallop, click, other - Peripheral edema ankle Peripheral Edema: bilateral: Trace foot Peripheral Edema: bilateral: Trace - Gastrointestinal General gastrointestinal: Present: normal bowel sounds, soft, tenderness (minor left sided tenderness upon deep palpation) - Integumentary Integumentary: Present: normal - Neurologic Neurologic: Present: CNII-XII intact - Musculoskeletal Musculoskeletal: Present: strength equal bilaterally - Psychiatric Psychiatric: Present: A&O x's 3, appropriate affect, intact judgment & insight - Labs CBC & Chem 7: 09/25/19 07:52 09/25/19 07:52 Labs: Abnormal Lab Results - Last 24 Hours (Table) 09/21/19 09/23/19 09/25/19 Range/Units 12:41 07:17 07:52 WBC 1.0 L* (3.8-10.6) k/uL RBC 1.95 L (4.30-5.90) m/uL Hgb 6.0 L* (13.0-17.5) gm/dL Hct 19.0 L* (39.0-53.0) % RDW 21.4 H (11.5-15.5) % Plt Count 69 L (150-450) k/uL Neutrophils # (Manual) 0.20 L* (1.3-7.7) k/uL Lymphocytes # (Manual) 0.71 L (1.0-4.8) k/uL Chloride (98-107) mmol/L BUN (9-20) mg/dL Calcium (8.4-10.2) mg/dL Total Protein (6.3-8.2) g/dL Albumin (3.5-5.0) g/dL Parvovirus B19 IgG Ab 1.88 H (<=0.90) INDEX Crossmatch See Detail 09/25/19 09/25/19 Range/Units 07:52 09:32 WBC (3.8-10.6) k/uL RBC (4.30-5.90) m/uL Hgb (13.0-17.5) gm/dL Hct (39.0-53.0) % RDW (11.5-15.5) % Plt Count (150-450) k/uL Neutrophils # (Manual) (1.3-7.7) k/uL Lymphocytes # (Manual) (1.0-4.8) k/uL Chloride 109 H (98-107) mmol/L BUN 33 H (9-20) mg/dL Calcium 7.6 L (8.4-10.2) mg/dL Total Protein 4.3 L (6.3-8.2) g/dL Albumin 2.2 L (3.5-5.0) g/dL Parvovirus B19 IgG Ab (<=0.90) INDEX Crossmatch See Detail Microbiology - Last 24 Hours (Table) 09/21/19 12:41 Blood Culture - Preliminary Blood No Growth after 72 hours Assessment and Plan (1) Pancytopenia Narrative/Plan: Pancytopenia and anemia workup has been ordered. Suspected that pancytopenia is due to recurrent illness along with multiple cancer diagnoses, mult treatments, and additional stresses. Transfuse to keep patient's hemoglobin greater than 7, today is 6.2 will be receiving 1 unit of PRBC. Keep platelet counts greater than 10,000, unless patient is symptomatic. Today is 69,000. G-CSF has been initiated for low absolute neutrophil count. Cancer treatments held Bone marrow biopsy and aspirate for tomorrow morning CBC daily Current Visit: Yes Status: Acute Priority: High Code(s): D61.818 - OTHER PANCYTOPENIA SNOMED Code(s): 322530389 (2) Breast cancer in male Narrative/Plan: Last evaluated in the office on 09/04/19. No clinical evidence of recurrence of breast cancer. Plan is to continue tamoxifen but, at this time we are going to hold it, along with his other treatments for cancer, to see what happens to his blood counts. Current Visit: Yes Status: Chronic Priority: Medium Code(s): C50.929 - MALIGNANT NEOPLASM OF UNSP SITE OF UNSPECIFIED MALE BREAST SNOMED Code(s): 461494294 (3) Prostate cancer Narrative/Plan: Patient follows with Urology, Dr. Kelly. Zytiga, 250 mg daily held. Continue 5 mg daily of prednisone. Patient is getting Xgeva outpatient, this can be rescheduled when he is discharged. PSA o rdered. His disease has been controlled on current regimen Current Visit: Yes Status: Chronic Priority: Medium Code(s): C61 - MALIGNANT NEOPLASM OF PROSTATE SNOMED Code(s): 617635793 (4) Malignant neoplasm of bladder, unspecified Narrative/Plan: Recent mentioned in the notes of bladder malignancy with plans for resection. WBC/ANC will not likely be satisfactory for a Surgeon to consider procedure at this time. Current Visit: Yes Status: Acute Priority: High Code(s): C67.9 - MALIGNANT NEOPLASM OF BLADDER, UNSPECIFIED SNOMED Code(s): 310029532
--- NOTE | 2019-09-25 16:09 | P.PN ---
Subjective Progress Note Date: 09/25/19 Principal diagnosis: This is a 84-year-old patient of Dr. Casarez. Patient had a locally advanced high-grade prostate cancer ,diffuse osseous metastasis. Also had retroperitoneal adenopathy with right hydronephrosis. He was treated with androgen deprivation therapy and responded very well. PSA came down to less than 1. Subsequently he was noted to have some right renal atrophy. He again had cross immaturity in July 2019 and cystoscopy revealed a 2.5 cm mass of the bladder 4. Suspicious for urothelial carcinoma. He was supposed to have undergone TURP of the tumor but patient was admitted to the hospital with pneumonia and was discharged on 09/18/2019. Admitted with-pneumonia, acute hypoxic respiratory failure, acute COPD exacerbation. UTI with Enterococcus usman calis. Treated with IV Unasyn, bronchodilators, inhaled steroids. Patient felt to have pancytopenia possibly from marrow suppression, acute illness, and need to rule out an element of MDS, and anti-androgen therapy. To be followed as an outpatient. Patient also had right breast cancer that was treated surgically. Patient's urologist is Dr. Kelly. Patient presented to hospital due to hypotension. Patient was seen by his primary care physician for a outpatient follow-up after recent hospital admission. He was noted to be hypotensive and EMS was called and the patient was transported to the emergency department. Denied a complaints of fever or chills. No cough is from production. Denied any gross hematuria. Patient complains of tightness and exertional dyspnea. Chest x-ray showed atelectasis. Hemoglobin 6.0 and WBC 0.8 and platelets 60,000. Urinalysis showed greater than 182 RBCs. Denied any eliseo hematuria. 09/22/2019 Patient is sitting up in the chair with bilateral legs elevated and appears to be in no acute distress. Patient is currently eating breakfast. Patient states that he feels under the weather and in need a possible transfusion today. Hemoglobin today is 7.0 and currently awaiting a unit of PRBCs today. Family is at the bedside. Home medications have been reordered. Oncology is following. Will repeat a.m. labs. Currently patient denies any chest pain, worsening shortness of breath, or palpitations. Patient is afebrile. Patient denies any nausea or vomiting and has been tolerating diet. 09/23/2019 Patient is currently sitting in the chair. Does complain of right lower abdominal pain. CT of abdomen pelvis was ordered. Showed small pleural effusions and suspected small bowel ileus. Patient is being undergone pain medications. Gentle hydration and patient is being transfused with 1 unit of PRBC due to hemoglobin dropped to 5.8 today. We will continue to follow closely. Patient will be kept nothing by mouth. Oncology is on board. Patient is still neutropenic and thrombocytopenic. Patient has been afebrile otherwise. Shortness of breath at baseline. Denied any nausea vomiting. No diarrhea. 09/24/2019 Patient is currently sitting in the chair. Shortness of breath is improved slightly. Patient did have bowel movements. Ileus has resolved. Abdominal pain improved as well. A patient was started on oral diet. Otherwise hemoglobin is at 6.3 today after 1 unit of PRBC yesterday. Oncology is following. Plan for bone marrow biopsy to rule out MDS. Patient has been afebrile otherwise. No complaints of chest pain. No nausea vomiting. No cough or sputum production. Patient was placed on Nielson catheter due to urinary retention. 09/25/2019 Patient is lying in bed and appears to be in no acute distress sleeping but easily arousable. Patient hemoglobin is 6.0 today and awaiting a unit of PRBCs. Oncology is following. Patient is scheduled to undergo a bone marrow biopsy in the morning. Patient's urine continues to look concentrated with some mild hematuria noted. Patient does have a Nielson catheter for retention and will continue at this time. Patient follows with Dr. Kelly in the outpatient setting. Objective - Vital Signs Vital signs: Vital Signs Temp 98 F 09/25/19 13:04 Pulse 92 09/25/19 13:04 Resp 17 09/25/19 13:04 BP 103/52 09/25/19 13:04 Pulse Ox 97 09/25/19 13:04 Intake & Output 09/24/19 09/25/19 09/25/19 18:59 06:59 18:59 Intake Total 630 1400 650 Output Total 1150 Balance -520 1400 650 Intake: Intake, IV Titration 600 250 Amount Sodium Chloride 0.9% 1, 600 250 000 ml @ 50 mls/hr IV . Q20H [facility] Rx#:[id number] Oral 800 400 Blood Product 630 0 Rc Pheresis 2 As3 Unit 310 [id number] Rc Pheresis As-3 Unit 0 [id number] Output: Urine 1150 Straight 900 Other: Voiding Method Toilet Indwelling Catheter Indwelling Catheter # Voids 2 2 - Exam Patient is lying in bed comfortably, no acute distress, awake alert and oriented.. HEENT: Normocephalic. Neck is supple. Pupils reactive. Nostrils clear. Oral cavity is moist. Ears reveal no drainage. Neck reveals no JVD, carotid bruits, or thyromegaly. CHEST EXAMINATION: Trachea is central. Symmetrical expansion. Bibasilar diminished air entry. Left basilar crackles. Nonlabored breathing.. CARDIAC: Normal S1, S2 with no gallops. No murmurs ABDOMEN: Soft. Bowel sounds normal. No organomegaly. No abdominal bruits. Extremities: Mild lower extremity edema noted with +1 pitting edema. No clubbing or cyanosis Neurologically awake, alert, oriented x3 with well-coordinated movements. No focal deficits noted Skin: No rash or skin lesions. Psychiatric: Cooperative. Non-suicidal Musculoskeletal: No joint swelling or deformity. Normal range of motion. - Labs CBC & Chem 7: 09/25/19 07:52 09/25/19 07:52 Labs: Abnormal Lab Results - Last 24 Hours (Table) 09/21/19 09/23/19 09/25/19 Range/Units 12:41 07:17 07:52 WBC 1.0 L* (3.8-10.6) k/uL RBC 1.95 L (4.30-5.90) m/uL Hgb 6.0 L* (13.0-17.5) gm/dL Hct 19.0 L* (39.0-53.0) % RDW 21.4 H (11.5-15.5) % Plt Count 69 L (150-450) k/uL Neutrophils # (Manual) 0.20 L* (1.3-7.7) k/uL Lymphocytes # (Manual) 0.71 L (1.0-4.8) k/uL Chloride (98-107) mmol/L BUN (9-20) mg/dL Calcium (8.4-10.2) mg/dL Total Protein (6.3-8.2) g/dL Albumin (3.5-5.0) g/dL Parvovirus B19 IgG Ab 1.88 H (<=0.90) INDEX Crossmatch See Detail 09/25/19 09/25/19 Range/Units 07:52 09:32 WBC (3.8-10.6) k/uL RBC (4.30-5.90) m/uL Hgb (13.0-17.5) gm/dL Hct (39.0-53.0) % RDW (11.5-15.5) % Plt Count (150-450) k/uL Neutrophils # (Manual) (1.3-7.7) k/uL Lymphocytes # (Manual) (1.0-4.8) k/uL Chloride 109 H (98-107) mmol/L BUN 33 H (9-20) mg/dL Calcium 7.6 L (8.4-10.2) mg/dL Total Protein 4.3 L (6.3-8.2) g/dL Albumin 2.2 L (3.5-5.0) g/dL Parvovirus B19 IgG Ab (<=0.90) INDEX Crossmatch See Detail Microbiology - Last 24 Hours (Table) 09/21/19 12:41 Blood Culture - Preliminary Blood No Growth after 72 hours Assessment and Plan Assessment: -Abdominal pain right lower quadrant. Small bowel ileus as per CT. Resolved now. -Symptomatic anemia with hemoglobin of 6.0--7.0--5.8--6.3 -Pancytopenia, possibly from antiandrogen therapy, rule out MDS -Recent Pneumonia suspect gram-negative organism and enterococcus fecaliths UTI Discharged on 09/18/2019 -Acute COPD exacerbation is an ex-smoker, -Acute hypoxic respiratory failure from pneumonia, corrected -History of prostate cancer that was treated with androgen deprivation therapy to which patient responded well -Acute on Chronic kidney disease with some atrophy of the right kidney, stage III -Bladder tumor pending resection -essential hypertension -Hyperlipidemia -DVT prophylaxis with SCDs Plan: Patient hemoglobin is 6.0 and currently awaiting 1 unit of PRBCs. Continue to monitor CBC daily. Hematology following. No gross hematuria noted. Patient will continue with an indwelling Nielson catheter at this time as he has been retaining urine. Further recommendations based on the clinical course. Patient is to undergo a bone marrow biopsy tomorrow morning. Will repeat a.m. labs. Possible discharge in 24-48 hours.
[2019-09-25] MEDS: SODIUM CHLORIDE 0.9% 1,000 ML IV SCH (16:58)
[2019-09-25] MEDS: TAMSULOSIN 0.4 MG CAP.ER.24H PO SCH (17:33)
[2019-09-26] MEDS: SODIUM CHLORIDE 0.9% 1,000 ML IV SCH (05:20)
[2019-09-26] MEDS ORDERED: PROPOFOL 10 MG/ML 20 ML VIAL IV ONE (08:12)
[2019-09-26] MEDS ORDERED: IV FLUID CONTINUATION 1,000 ML IV ONE (08:35)
[2019-09-26 08:41] LABS: Methylmalonic Acid 0.49 umol/L (<0.40)
--- NOTE | 2019-09-26 08:43 | P.PCN ---
Date of Procedure: 09/26/19 Preoperative Diagnosis: New Pancytopenia, h/o breast ca, prostate ca Postoperative Diagnosis: Same Procedure(s) Performed: Bone marrow aspiration and biopsy Anesthesia: MAC Surgeon: Kerwin Colon Rock Contractor #1: Stated None Estimated Blood Loss (ml): 1 Pathology: other Condition: stable Disposition: floor Indications for Procedure: New onset pancytopenia, unresponsive to filgrastim. Operative Findings: Adequate samples Description of Procedure: The procedure was explained in detail to the patient on the floor. Informed consent was obtained on the floor. He presented to the outpatient endoscopy suite, and was placed in the left lateral decubitus position. The area over both posterior Ilex crest was cleaned and prepped with chlorhexidine and sterile draping. IV sedation was then initiated. Local anesthesia was administered to the right posterior hilar crest with lidocaine. A Jamshidi needle was then inserted and bone marrow aspirate and biopsy obtained. On withdrawal of the needle hemostasis was easily achieved. Blood loss was minimal and recovery from sedation was satisfactory. He appeared to have tolerated the procedure well without any obvious immediate complications.
[2019-09-26 09:44] LABS: Prothrombin Time 10.6 sec (9.0-12.0)
[2019-09-26 10:08] LABS: Albumin 2.3 g/dL (3.5-5.0); Anisocytosis Moderate; Calcium 7.8 mg/dL (8.4-10.2); HCT 22.1 % (39.0-53.0); Hypochromasia Moderate; MCH 30.2 pg (25.0-35.0); MCHC 31.2 g/dL (31.0-37.0); Macrocytosis Slight; Poikilocytosis Slight; Potassium 3.6 mmol/L (3.5-5.1); RBC 2.28 m/uL (4.30-5.90); RDW 20.6 % (11.5-15.5); Reticulocyte % 4.5 % (0.5-2.0); Total Bilirubin 0.9 mg/dL (0.2-1.3); Total Protein 4.4 g/dL (6.3-8.2)
[2019-09-26 10:14] LABS: HGB 6.9 gm/dL (13.0-17.5); Platelet Count 67 k/uL (150-450); WBC 1.4 k/uL (3.8-10.6)
[2019-09-26] MEDS: CHOLECALCIFEROL 1,000 UNIT TAB PO SCH ×2 (10:31→20:10)
[2019-09-26] MEDS: CYANOCOBALAMIN 500 MCG TAB PO SCH (10:31)
[2019-09-26] MEDS: CALCIUM ACETATE 667 MG TAB PO SCH ×2 (10:31→17:05)
[2019-09-26] MEDS: FILGRASTIM-SNDZ 480 MCG/0.8 ML SYRINGE SQ SCH (10:34)
[2019-09-26 10:56] LABS: Band Neutrophils % 8 %; Basophils # (M) 0.03 k/uL (0-0.2); Lymphocytes # (M) 0.62 k/uL (1.0-4.8); Monocytes # (M) 0.03 k/uL (0-1.0); Neutrophils % (M) 44 %; Nucleated Red Blood Cells 0 /100 WBC (0-0); Total Cells Counted 100
[2019-09-26 10:59] LABS: Large Platelets Present
[2019-09-26 11:55] VITALS: BMI 31.6
[2019-09-26 13:41] LABS: Gamma Globulin 0.48 g/dL (0.70-1.50)
--- NOTE | 2019-09-26 13:58 | P.PN ---
Subjective Progress Note Date: 09/26/19 Principal diagnosis: This is a 84-year-old patient of Dr. Casarez. Patient had a locally advanced high-grade prostate cancer ,diffuse osseous metastasis. Also had retroperitoneal adenopathy with right hydronephrosis. He was treated with androgen deprivation therapy and responded very well. PSA came down to less than 1. Subsequently he was noted to have some right renal atrophy. He again had cross immaturity in July 2019 and cystoscopy revealed a 2.5 cm mass of the bladder 4. Suspicious for urothelial carcinoma. He was supposed to have undergone TURP of the tumor but patient was admitted to the hospital with pneumonia and was discharged on 09/18/2019. Admitted with-pneumonia, acute hypoxic respiratory failure, acute COPD exacerbation. UTI with Enterococcus usman calis. Treated with IV Unasyn, bronchodilators, inhaled steroids. Patient felt to have pancytopenia possibly from marrow suppression, acute illness, and need to rule out an element of MDS, and anti-androgen therapy. To be followed as an outpatient. Patient also had right breast cancer that was treated surgically. Patient's urologist is Dr. Kelly. Patient presented to hospital due to hypotension. Patient was seen by his primary care physician for a outpatient follow-up after recent hospital admission. He was noted to be hypotensive and EMS was called and the patient was transported to the emergency department. Denied a complaints of fever or chills. No cough is from production. Denied any gross hematuria. Patient complains of tightness and exertional dyspnea. Chest x-ray showed atelectasis. Hemoglobin 6.0 and WBC 0.8 and platelets 60,000. Urinalysis showed greater than 182 RBCs. Denied any eliseo hematuria. 09/22/2019 Patient is sitting up in the chair with bilateral legs elevated and appears to be in no acute distress. Patient is currently eating breakfast. Patient states that he feels under the weather and in need a possible transfusion today. Hemoglobin today is 7.0 and currently awaiting a unit of PRBCs today. Family is at the bedside. Home medications have been reordered. Oncology is following. Will repeat a.m. labs. Currently patient denies any chest pain, worsening shortness of breath, or palpitations. Patient is afebrile. Patient denies any nausea or vomiting and has been tolerating diet. 09/23/2019 Patient is currently sitting in the chair. Does complain of right lower abdominal pain. CT of abdomen pelvis was ordered. Showed small pleural effusions and suspected small bowel ileus. Patient is being undergone pain medications. Gentle hydration and patient is being transfused with 1 unit of PRBC due to hemoglobin dropped to 5.8 today. We will continue to follow closely. Patient will be kept nothing by mouth. Oncology is on board. Patient is still neutropenic and thrombocytopenic. Patient has been afebrile otherwise. Shortness of breath at baseline. Denied any nausea vomiting. No diarrhea. 09/24/2019 Patient is currently sitting in the chair. Shortness of breath is improved slightly. Patient did have bowel movements. Ileus has resolved. Abdominal pain improved as well. A patient was started on oral diet. Otherwise hemoglobin is at 6.3 today after 1 unit of PRBC yesterday. Oncology is following. Plan for bone marrow biopsy to rule out MDS. Patient has been afebrile otherwise. No complaints of chest pain. No nausea vomiting. No cough or sputum production. Patient was placed on Nielson catheter due to urinary retention. 09/25/2019 Patient is lying in bed and appears to be in no acute distress sleeping but easily arousable. Patient hemoglobin is 6.0 today and awaiting a unit of PRBCs. Oncology is following. Patient is scheduled to undergo a bone marrow biopsy in the morning. Patient's urine continues to look concentrated with some mild hematuria noted. Patient does have a Nielson catheter for retention and will continue at this time. Patient follows with Dr. Kelly in the outpatient setting. 09/26/2019 Patient is sitting up in the bed and has recently just finished with a bone marrow biopsy with Dr. Colon. Repeat labs today show hemoglobin of 6.9 and currently awaiting a unit of PRBCs. Patient continues to have a cough with phlegm production and a repeat chest x-ray is being ordered. Physical therapy was consulted as the patient continues to be quite weak and is currently pending at this time. When discussing with the patient about discharge plans patient will be returning home with his . Objective - Vital Signs Vital signs: Vital Signs Temp 97.7 F 09/26/19 09:00 Pulse 71 09/26/19 09:00 Resp 20 09/26/19 09:00 BP 106/61 09/26/19 09:00 Pulse Ox 92 L 09/26/19 09:00 Intake & Output 09/25/19 09/26/19 09/26/19 18:59 06:59 18:59 Intake Total 960 550 100 Output Total 900 600 Balance 60 -50 100 Intake: IV 100 Intake, IV Titration 250 550 Amount Sodium Chloride 0.9% 1, 250 550 000 ml @ 50 mls/hr IV . Q20H [facility] Rx#:[id number] Oral 400 Blood Product 310 Rc Pheresis As-3 Unit 310 [id number] Output: Urine 900 600 Straight 600 Other: Voiding Method Indwelling Catheter Indwelling Catheter Indwelling Catheter # Voids 2 - Exam Patient is sitting up in bed, in no acute distress, awake alert and oriented.. HEENT: Normocephalic. Neck is supple. Pupils reactive. Nostrils clear. Oral cavity is moist. Ears reveal no drainage. Neck reveals no JVD, carotid bruits, or thyromegaly. CHEST EXAMINATION: Trachea is central. Symmetrical expansion. Bibasilar diminished air entry. Left basilar crackles. Nonlabored breathing.. CARDIAC: Normal S1, S2 with no gallops. No murmurs ABDOMEN: Soft. Bowel sounds normal. No organomegaly. No abdominal bruits. Extremities: Mild lower extremity edema noted with +1 pitting edema. No clubbing or cyanosis Neurologically awake, alert, oriented x3 with well-coordinated movements. No focal deficits noted Skin: No rash or skin lesions. Psychiatric: Cooperative. Non-suicidal Musculoskeletal: No joint swelling or deformity. Normal range of motion. - Labs CBC & Chem 7: 09/26/19 07:57 09/26/19 07:57 Labs: Abnormal Lab Results - Last 24 Hours (Table) 09/22/19 09/25/19 09/26/19 Range/Units 11:40 09:32 07:57 WBC 1.4 L* (3.8-10.6) k/uL RBC 2.28 L (4.30-5.90) m/uL Hgb 6.9 L* (13.0-17.5) gm/dL Hct 22.1 L (39.0-53.0) % RDW 20.6 H (11.5-15.5) % Plt Count 67 L (150-450) k/uL Neutrophils # (Manual) 0.70 L (1.3-7.7) k/uL Lymphocytes # (Manual) 0.62 L (1.0-4.8) k/uL Retic Count 4.5 H (0.5-2.0) % Chloride (98-107) mmol/L BUN (9-20) mg/dL Calcium (8.4-10.2) mg/dL Total Protein (6.3-8.2) g/dL Albumin (3.5-5.0) g/dL Methylmalonic Acid 0.49 H (<0.40) umol/L RBC Folate 1,481 H (280 - 791) ng/mL Crossmatch See Detail 09/26/19 Range/Units 07:57 WBC (3.8-10.6) k/uL RBC (4.30-5.90) m/uL Hgb (13.0-17.5) gm/dL Hct (39.0-53.0) % RDW (11.5-15.5) % Plt Count (150-450) k/uL Neutrophils # (Manual) (1.3-7.7) k/uL Lymphocytes # (Manual) (1.0-4.8) k/uL Retic Count (0.5-2.0) % Chloride 109 H (98-107) mmol/L BUN 32 H (9-20) mg/dL Calcium 7.8 L (8.4-10.2) mg/dL Total Protein 4.4 L (6.3-8.2) g/dL Albumin 2.3 L (3.5-5.0) g/dL Methylmalonic Acid (<0.40) umol/L RBC Folate (280 - 791) ng/mL Crossmatch Microbiology - Last 24 Hours (Table) 09/25/19 16:55 Urine Culture - Preliminary Urine,Catheterized 09/21/19 12:41 Blood Culture - Preliminary Blood No Growth after 96 hours Assessment and Plan Assessment: -Abdominal pain right lower quadrant. Small bowel ileus as per CT. Resolved now. -Symptomatic anemia with hemoglobin of 6.0--7.0--5.8--6.3---6.0--6.9 -Pancytopenia, possibly from antiandrogen therapy, rule out MDS -Recent Pneumonia suspect gram-negative organism and enterococcus fecaliths UTI Discharged on 09/18/2019 -Acute COPD exacerbation is an ex-smoker, -Acute hypoxic respiratory failure from pneumonia, corrected -History of prostate cancer that was treated with androgen deprivation therapy to which patient responded well -Acute on Chronic kidney disease with some atrophy of the right kidney, stage III -Bladder tumor pending resection -essential hypertension -Hyperlipidemia -DVT prophylaxis with SCDs Plan: Patient hemoglobin is 6.9 and currently awaiting 1 unit of PRBCs. Continue to monitor CBC daily. Hematology following. No gross hematuria noted. Patient underwent bone marrow biopsy today and will follow-up on results with oncology in the outpatient setting. Patient will continue with an indwelling Nielson catheter at this time as he has been retaining urine. Further recommendations based on the clinical course. Will repeat a.m. labs. Patient continues to have a cough and congestion and a repeat chest x-ray was ordered and is pending at this time. Possible discharge in 24 hours.
--- NOTE | 2019-09-26 14:21 | XR ---
EXAMINATION TYPE: XR chest 1V portable DATE OF EXAM: 09/26/2019 COMPARISON: Prior chest x-ray 09/21/[address] 09/23/2019 HISTORY: Shortness of breath TECHNIQUE: Single frontal view of the chest is obtained. FINDINGS: There is retrocardiac density, obscured left hemidiaphragm and heart border. No pneumothor ax. Heart size is stable. Eventration of right hemidiaphragm noted. IMPRESSION: Correlate for left lower lobe atelectasis, pneumonia and possible effusion. There is a h iatal hernia with fixed partial intrathoracic.
[2019-09-26] MEDS: TAMSULOSIN 0.4 MG CAP.ER.24H PO SCH (17:05)
[2019-09-27] MEDS: SODIUM CHLORIDE 0.9% 1,000 ML IV SCH (07:40)
[2019-09-27] MEDS: FILGRASTIM-SNDZ 480 MCG/0.8 ML SYRINGE SQ SCH (07:55)
[2019-09-27] MEDS: CHOLECALCIFEROL 1,000 UNIT TAB PO SCH ×2 (07:55→20:07)
[2019-09-27] MEDS: CYANOCOBALAMIN 500 MCG TAB PO SCH (07:55)
[2019-09-27] MEDS: CALCIUM ACETATE 667 MG TAB PO SCH ×2 (07:55→17:40)
[2019-09-27] MEDS ORDERED: FUROSEMIDE 10 MG/ML 4 ML VIAL IV STA (08:46)
[2019-09-27 09:53] LABS: Anisocytosis Moderate; HCT 28.5 % (39.0-53.0); Hypochromasia Moderate; MCH 30.5 pg (25.0-35.0); MCHC 31.1 g/dL (31.0-37.0); MCV 98.2 fL (80.0-100.0); Macrocytosis Moderate; Mean Platelet Volume 9.5; Poikilocytosis Slight; RDW 21.1 % (11.5-15.5); WBC 1.6 k/uL (3.8-10.6)
[2019-09-27 09:57] LABS: Albumin 2.7 g/dL (3.5-5.0); Calcium 8.3 mg/dL (8.4-10.2); Potassium 3.7 mmol/L (3.5-5.1); Total Bilirubin 0.9 mg/dL (0.2-1.3); Total Protein 5.1 g/dL (6.3-8.2)
[2019-09-27 10:12] LABS: HGB 8.9 gm/dL (13.0-17.5)
[2019-09-27 10:13] LABS: Platelet Count 62 k/uL (150-450)
[2019-09-27 12:08] LABS: Band Neutrophils % 7 %; Lymphocytes # (M) 0.75 k/uL (1.0-4.8); Monocytes # (M) 0.03 k/uL (0-1.0); Neutrophils % (M) 44 %; Nucleated Red Blood Cells 0 /100 WBC (0-0); Total Cells Counted 100
[2019-09-27 12:09] LABS: Polychromasia Present; Target Cells Present
--- NOTE | 2019-09-27 12:16 | P.PN ---
Subjective Progress Note Date: 09/27/19 Principal diagnosis: Prostate and breast cancer, now with pancytopenia Patient denies any specific c/o when seen, he is scheduled for DC Objective - Vital Signs Vital signs: Vital Signs Temp 98.4 F 09/27/19 04:28 Pulse 78 09/27/19 04:28 Resp 18 09/27/19 04:28 BP 100/61 09/27/19 04:28 Pulse Ox 92 L 09/27/19 04:28 Intake & Output 09/26/19 09/27/19 09/27/19 18:59 06:59 18:59 Intake Total 2370 200 Output Total 650 1300 Balance 1720 -1100 Weight 88.904 kg Intake: IV 100 Intake, IV Titration 300 Amount Sodium Chloride 0.9% 1, 300 000 ml @ 50 mls/hr IV . Q20H [facility] Rx#:[id number] Oral 1350 200 Blood Product 620 Rc Pheresis As-3 Unit 310 [id number] Output: Urine 650 1300 Other: Voiding Method Indwelling Catheter Indwelling Catheter - Constitutional General appearance: Present: average body habitus, cooperative, no acute di stress - EENT Eyes: Present: anicteric sclerae, EOMI ENT: Present: hearing grossly normal - Respiratory Respiratory: bilateral: CTA - Cardiovascular Heart sounds: normal: S1, S2 - Peripheral edema leg Peripheral Edema: bilateral: None - Gastrointestinal General gastrointestinal: Present: normal bowel sounds, soft - Neurologic Neurologic: Present: CNII-XII intact - Musculoskeletal Musculoskeletal: Present: strength equal bilaterally - Psychiatric Psychiatric: Present: A&O x's 3, appropriate affect, intact judgment & insight - Labs CBC & Chem 7: 09/27/19 08:41 09/27/19 08:41 Labs: Abnormal Lab Results - Last 24 Hours (Table) 09/22/19 09/25/19 09/27/19 Range/Units 11:40 09:32 08:41 WBC 1.6 L (3.8-10.6) k/uL RBC 2.90 L (4.30-5.90) m/uL Hgb 8.9 L D (13.0-17.5) gm/dL Hct 28.5 L (39.0-53.0) % RDW 21.1 H (11.5-15.5) % Chloride (98-107) mmol/L BUN (9-20) mg/dL Glucose (74-99) mg/dL Calcium (8.4-10.2) mg/dL Total Protein (6.3-8.2) g/dL Albumin (3.5-5.0) g/dL Albumin (PEP) 2.70 L (3.80-4.90) g/dL Iycae-9-Sobosvrfn 0.56 H (0.10-0.40) g/dL Zuhay-1-Vdlcuppfl 0.58 L (0.60-1.00) g/dL Beta Globulins 0.38 L (0.60-1.30) g/dL Gamma Globulins 0.48 L (0.70-1.50) g/dL Crossmatch See Detail 09/27/19 Range/Units 08:41 WBC (3.8-10.6) k/uL RBC (4.30-5.90) m/uL Hgb (13.0-17.5) gm/dL Hct (39.0-53.0) % RDW (11.5-15.5) % Chloride 108 H (98-107) mmol/L BUN 30 H (9-20) mg/dL Glucose 124 H (74-99) mg/dL Calcium 8.3 L (8.4-10.2) mg/dL Total Protein 5.1 L (6.3-8.2) g/dL Albumin 2.7 L (3.5-5.0) g/dL Albumin (PEP) (3.80-4.90) g/dL Fdvla-2-Andbmqubh (0.10-0.40) g/dL Kiisl-9-Akcgrynne (0.60-1.00) g/dL Beta Globulins (0.60-1.30) g/dL Gamma Globulins (0.70-1.50) g/dL Crossmatch Microbiology - Last 24 Hours (Table) 09/25/19 16:55 Urine Culture - Final Urine,Catheterized 09/21/19 12:41 Blood Culture - Preliminary Blood No Growth after 120 hours Assessment and Plan (1) Pancytopenia Narrative/Plan: Transfuse to keep patient's hemoglobin greater than 7, today is 8.9. Keep platelet counts greater than 10,000, unless patient is symptomatic, 62,000 today. G-CSF has been initiated for low absolute neutrophil count, cont while inpatient. Cancer treatments ok to resume on DC Bone marrow biopsy and aspirate done, pending results. F/U with Dr. Colon next week for results, appt in chart CBC daily Current Visit: Yes Status: Acute Priority: High Code(s): D61.818 - OTHER PANCYTOPENIA SNOMED Code(s): 360699172 (2) Breast cancer in male Narrative/Plan: Last evaluated in the office on 09/04/19. No clinical evidence of recurrence of breast cancer. Plan is to continue tamoxifen but, at this time we are going to hold it while inpatient, along with his other treatments for cancer, to see what happens to his blood counts. Current Visit: Yes Status: Chronic Priority: Medium Code(s): C50.929 - MALIGNANT NEOPLASM OF UNSP SITE OF UNSPECIFIED MALE BREAST SNOMED Code(s): 359189615 (3) Prostate cancer Narrative/Plan: Patient follows with Urology, Dr. Kelly. Zytiga, 250 mg daily held. Continue 5 mg daily of prednisone. Patient is getting Xgeva outpatient, this can be rescheduled when he is discharged. PSA 0.3. Disease is controlled on current regimen Current Visit: Yes Status: Chronic Priority: Medium Code(s): C61 - MALIGNANT NEOPLASM OF PROSTATE SNOMED Code(s): 108950491 (4) Malignant neoplasm of bladder, unspecified Narrative/Plan: Recent mentioned in the notes of bladder malignancy with plans for resection. WBC/ANC will not likely be satisfactory for a Surgeon to consider procedure at this time. Current Visit: Yes Status: Acute Priority: High Code(s): C67.9 - MALIGNANT NEOPLASM OF BLADDER, UNSPECIFIED SNOMED Code(s): 836592032
[2019-09-27 12:49] LABS: Amylase 42 U/L (30-110)
[2019-09-27] MEDS: IOPAMIDOL CONTRAST (ORAL USE) VIAL PO PRN ×2 (13:09→14:04)
--- NOTE | 2019-09-27 15:33 | CT ---
EXAMINATION TYPE: CT abdomen pelvis w con DATE OF EXAM: 09/27/2019 COMPARISON: 09/23/2019 HISTORY: 84-year-old male RLQ pain TECHNIQUE: Contiguous axial scanning of the abdomen and pelvis following administration of 100 ml Iso katja 300 IV contrast. Delayed images through the kidneys and coronal/sagittal reconstructions perform ed. CT DLP: 1404.3 mGycm Automated exposure control for dose reduction was used. FINDINGS: Heart upper limits of normal in size with small anterior basilar pericardial fluid. Increasing volume loss and consolidation left lower lobe. Some associated pleural-based calcifications are unchanged. Small left pleural effusion has increased in the interval. Small right pleural effusion also increase d. Moderate-sized hiatal hernia redemonstrated. Liver enlarged at 19.0 cm. Unable to exclude numerous subcentimeter hypodensities within the left juan miguel er lobe, refer to axial image 22 and 24. This could represent intrahepatic biliary ductal dilatation or multiple small lesions. Focal hypodensity and some volume loss along the lateral right liver lobe, axial image 36. Probable 1 .4 cm cyst posterior right liver lobe. Portal venous system is patent. The bile duct itself does not appear dilated. Adrenal glands, right kidney appear within normal limits. 3.5 cm cyst lateral left kidney. No contrast seen within the collecting systems on the delayed kidney images Irregular soft tissue nodules in the left subphrenic region suggestive of splenules, likely post trau matic changes. At least 3 pancreatic cysts are present measuring up to 1.3 cm in the inferior pancreatic head, 1.2 c m in the pancreatic neck, and 1.2 cm in the distal pancreatic body. Atherosclerotic calcifications infrarenal abdominal aorta and iliac arteries. No dilated small bowel, free fluid, or free air. Air is seen along the wall of the cecum could be trapped against stool. Refer to axial image 62 for r epresentative image. Oral contrast progressed to the distal transverse colon. Left-sided colonic dive rticulosis with redundant proximal sigmoid. No definite pericolonic inflammatory change. Supraumbilical midline abdominal wall hernia containing mesenteric fat as well as a Beyer hernia in volving the anterior wall of a short segment of mid transverse colon. Hernia sac measures 7.3 cm wide and 5.0 cm craniocaudal. No associated inflammatory or obstructive changes. No mesenteric or retroperitoneal lymphadenopathy. Prominent distention of the urinary bladder with bladder wall trabeculations and a left posterior div erticulum measuring 2.9 cm. There is some mural based soft tissue nodularity along the right posterior and inferior bladder measu ring 1.8 and 0.9 cm, refer to axial image 67 and 72. In addition, there is interstitial bladder wall air noted, reference axial images 64 and 65. Prostate gland measures 4.7 cm wide. Generalized anasarca change with presacral edema. Bones: Degenerative changes at the hips and SI joints and throughout the lumbar spine with grade 1 an terolisthesis at L4-L5 and L5-S1 and grade 1 retrolisthesis at L1-L4 levels. IMPRESSION: 1. BLADDER WALL AIR. FINDINGS CAN BE SEEN WITH EMPHYSEMATOUS CYSTITIS. 2. AIR SEEN ALONG THE WALL OF THE CECUM COULD BE TRAPPED AGAINST STOOL. CORRELATE CLINICALLY AND WITH LACTIC ACID LEVELS TO EXCLUDE PNEUMATOSIS/ISCHEMIA. 3. UNABLE TO EXCLUDE MULTIPLE SMALL LEFT HEPATIC LOBE LESIONS. FUNGAL MICROABSCESSES AND METASTATIC D ISEASE ARE CONSIDERATIONS. INTRAHEPATIC BILIARY DUCTAL DILATATION IS ALSO POSSIBLE. CONSIDER CONTRAST -ENHANCED MRI TO FURTHER EVALUATE. 4. HOWEVER, NOTE THAT NO CONTRAST IS SEEN IN THE RENAL COLLECTING SYSTEMS ON THE DELAYED KIDNEY IMAGE S. CORRELATE FOR EMMIE. 5. INCREASING SMALL EFFUSIONS, LEFT GREATER THAN RIGHT. INCREASING VOLUME LOSS AND CONSOLIDATION IN T HE LEFT LOWER LOBE. CORRELATE TO EXCLUDE PNEUMONIA. THERE MAY BE A COMPONENT OF FLUID OVERLOAD STATE. 6. MURAL BASED SOFT TISSUE NODULARITY ALONG THE RIGHT POSTERIOR ASPECT OF THE BLADDER WALL MEASURING 1.8 CM AND 0.9 CM. UROTHELIAL NEOPLASM NOT EXCLUDED. 7. OMENTAL FAT-CONTAINING AND TRANSVERSE COLON CONTAINING BEYER SUPRA UMBILICAL HERNIA. NO ASSOCIAT ED INFLAMMATION OR OBSTRUCTION HERE. 8. APPROXIMATELY 3 CYSTIC PANCREATIC LESIONS MEASURING UP TO 1.3 CM. THESE SHOULD BE CONCURRENTLY ASS ESSED ON THE MRI.
[2019-09-27] MEDS: TAMSULOSIN 0.4 MG CAP.ER.24H PO SCH (17:40)
--- NOTE | 2019-09-27 19:44 | P.GSCN ---
History of Present Illness Consult date: 09/27/19 History of present illness: CHIEF COMPLAINT: Hematochezia HISTORY OF PRESENT ILLNESS: The patient is a pleasant 84 male with multiple medical problems including prostate cancer and right breast cancer status post mastectomy by Dr. Burch who was recently discharged from the hospital 9 days ago for right upper quadrant abdominal pain. He was readmitted 3 days later and now comes in for pancytopenia and anemia. Since his hospitalization the last 6 days, he reports new mild right lower quadrant abdominal pain. He had a Nielson catheter discontinued this morning and this evening is unable to void. He had a CT of the abdomen and pelvis demonstrating abnormal finding of questionable air along the cecum. Patient denies any moderate abdominal pain. He is currently nothing by mouth. General surgery is consulted for abnormal computed tomography scan PAST MEDICAL HISTORY: See list. PAST SURGICAL HISTORY: See list. MEDICATIONS: See list. ALLERGIES: See list. SOCIAL HISTORY: See list. FAMILY HISTORY: See list. REVIEW OF ORGAN SYSTEMS: CONSTITUTIONAL: No fevers or chills. EYES: Denies any trouble with vision. No glasses. HEENT: Has difficulty with hearing. No nosebleeds. No difficulty swallowing. RESPIRATORY: Has a large left pleural effusion CARDIOVASCULAR: No recent chest pain, palpitations, or recent heart attacks. GASTROINTESTINAL: Denies fatty food intolerance. No recent blood in stools GENITOURINARY: Denies any blood in urine or increased urinary frequency. NEUROLOGICAL: Denies any numbness or tingling along the distal extremities. No seizure disorders or headaches. MUSCULOSKELETAL: Has stiffness or joint arthritis. SKIN: No current skin cancer. No rash. PSYCHIATRIC: Denies current depression or suicidal thoughts. Has anxiety ENDOCRINE: Denies current thyroid disorders. Denies any blood sugar glucose intolerance. HEME/LYMPHATIC: No recent deep venous thrombosis. History of 5 unit blood transfusion during current admission ALLERGY/IMMUNOLOGY: History of chemotherapy BREAST: History of right mastectomy for breast cancer PHYSICAL EXAM: VITALS: Reviewed CONSTITUTIONAL: Well developed and in no acute distress. EYES: Conjuctivae without sclera icterus. Pupils are equally round and reactive to light. Extraocular movements grossly intact. HEAD, EARS, NOSE, THROAT: Moist buccal mucosa. Head is atraumatic, normocephalic. Hears conversational speech. No nasal drainage. NECK: Supple. No JV distention. RESPIRATORY: Non-labored respirations and equal bilateral excursions. No gross wheezes. CARDIOVASCULAR:Palpable 2+ radial pulses. ABDOMEN: Soft. Non-tender. Nondistended. MUSCULOSKELETAL: Nail and fingers with good capillary refill. SKIN: Warm and well perfused with good skin turgor. NEUROLOGIC: Cranial nerves I through XII grossly intact. Sensation upper and extremities intact. No focal or lateralizing signs. PSYCH: Appropriate affect. Alert and oriented to person, place and time. Dis plays appropriate insight. CLINCAL LABS: Reviewed. WBC 1.6 improvement of the last 4 days. Hemoglobin of 6.9 to 8.9. IMAGING: Independently reviewed without diffuse free air. No inflammatory luís nges along the cecum identified. Punctate air within the bladder identified. Similarly punctate air found along the wall of the cecum. Cecum is nondilated. This my personal interpretation. No gross free air or small bowel obstruction identified. Left pleural effusion identified. Multiple lesions on the liver identified RADIOLOGY: Report reviewed RECORDS: previous old records reviewed ASSESSMENT: 1. Abnormal computed tomography scan 2. Abdominal pain right lower quadrant 3. History of prostate cancer 4. History of breast cancer 5. Bladder cancer PLAN: 1. Immediate start of antibiotics to address any ischemia of the bowel however he is at risk for typhlitis with pancytopenia 2. Ideally conservative management desscribed as patient presents with multiple high risk comorbidities including pancytopenia, breast cancer, bladder cancer, prostate cancer, upper respiratory infection, left pleural effusion Thank you for this kind consultation. Past Medical History Past Medical History: Cancer, Hyperlipidemia, Hypertension Additional Past Medical History / Comment(s): hx prostate cancer pt states currently in remission, rt breast cancer recent mammogram "clean", anemia, recent infection lower rt leg tx with antibiotics. bladder mass History of Any Multi-Drug Resistant Organisms: None Reported Past Surgical History: Appendectomy, Breast Surgery, Orthopedic Surgery Additional Past Surgical History / Comment(s): colonoscopy, rt breast mastectomy, arthroscopic knee surgery, spleenectomy Past Anesthesia/Blood Transfusion Reactions: No Reported Reaction Past Psychological History: Anxiety Additional Psychological History / Comment(s): Pt resides with his spouse. He is independent. Smoking Status: Former smoker Past Alcohol Use History: Occasional Additional Past Alcohol Use History / Comment(s): PT started smoking in 1951 and quit in 2004. He was a 2-2.5 ppd smoker. Pt drank alcohol in the past but denies ever having alcoholism. He has drank any alcohol in months. Past Drug Use History: None Reported - Past Family History Father Family Medical History: Cancer Additional Family Medical History / Comment(s): prostate Sister(s) Family Medical History: Cancer Additional Family Medical History / Comment(s): breast Brother(s) Family Medical History: Cancer Additional Family Medical History / Comment(s): colon cancer Mother Family Medical History: No Reported History Additional Family Medical History / Comment(s): Mother lived to be 98yrs old. Medications and Allergies Home Medications Medication Instructions Recorded Confirmed Type Abiraterone Acetate [Zytiga] 250 mg PO DAILY 02/07/19 09/21/19 History Tamsulosin HCl [Flomax] 0.8 mg PO W/SUPPER 02/07/19 09/21/19 History predniSONE 5 mg PO DAILY 02/07/19 09/21/19 History Tamoxifen Citrate 20 mg PO W/SUPPER 09/15/19 09/21/19 History Xgeva 120mg/1.7ml Subcutaneous 1.7 ml SQ Q90D 09/15/19 09/21/19 History Calcium Acetate [PhosLo] 667 mg PO BID-W/MEALS #60 tab 09/27/19 Rx Cholecalciferol [Vitamin D3 (25 1,000 unit PO BID #60 tab 09/27/19 Rx Mcg = 1000 Iu)] Cyanocobalamin [Vitamin B-12] 1,000 mcg PO DAILY #30 tab 09/27/19 Rx Allergies Allergy/AdvReac Type Severity Reaction Status Date / Time No Known Allergies Allergy Verified 09/21/19 13:02 Surgical - Exam Vital Signs Temp Pulse Resp BP Pulse Ox 98.2 F 76 20 96/49 93 L 09/21/19 12:17 09/21/19 12:17 09/21/19 12:17 09/21/19 12:17 09/21/19 12:17 Results - Labs 09/27/19 08:41 09/27/19 08:41 Abnormal Lab Results - Last 24 Hours (Table) 09/27/19 09/27/19 Range/Units 08:41 08:41 WBC 1.6 L (3.8-10.6) k/uL RBC 2.90 L (4.30-5.90) m/uL Hgb 8.9 L D (13.0-17.5) gm/dL Hct 28.5 L (39.0-53.0) % RDW 21.1 H (11.5-15.5) % Plt Count 62 L (150-450) k/uL Neutrophils # (Manual) 0.80 L (1.3-7.7) k/uL Lymphocytes # (Manual) 0.75 L (1.0-4.8) k/uL Chloride 108 H (98-107) mmol/L BUN 30 H (9-20) mg/dL Glucose 124 H (74-99) mg/dL Calcium 8.3 L (8.4-10.2) mg/dL Total Protein 5.1 L (6.3-8.2) g/dL Albumin 2.7 L (3.5-5.0) g/dL Microbiology - Last 24 Hours (Table) 09/21/19 12:41 Blood Culture - Final Blood No Growth after 144 hours 09/25/19 16:55 Urine Culture - Final Urine,Catheterized Diabetes panel 09/27/19 Range/Units 08:41 Sodium 140 (137-145) mmol/L Potassium 3.7 (3.5-5.1) mmol/L Chloride 108 H (98-107) mmol/L Carbon Dioxide 23 (22-30) mmol/L BUN 30 H (9-20) mg/dL Creatinine 1.11 (0.66-1.25) mg/dL Glucose 124 H (74-99) mg/dL Calcium 8.3 L (8.4-10.2) mg/dL AST 25 (17-59) U/L ALT 21 (4-49) U/L Alkaline Phosphatase 86 (38-126) U/L Total Protein 5.1 L (6.3-8.2) g/dL Albumin 2.7 L (3.5-5.0) g/dL Calcium panel 09/27/19 Range/Units 08:41 Calcium 8.3 L (8.4-10.2) mg/dL Albumin 2.7 L (3.5-5.0) g/dL Pituitary panel 09/27/19 Range/Units 08:41 Sodium 140 (137-145) mmol/L Potassium 3.7 (3.5-5.1) mmol/L Chloride 108 H (98-107) mmol/L Carbon Dioxide 23 (22-30) mmol/L BUN 30 H (9-20) mg/dL Creatinine 1.11 (0.66-1.25) mg/dL Glucose 124 H (74-99) mg/dL Calcium 8.3 L (8.4-10.2) mg/dL Adrenal panel 09/27/19 Range/Units 08:41 Sodium 140 (137-145) mmol/L Potassium 3.7 (3.5-5.1) mmol/L Chloride 108 H (98-107) mmol/L Carbon Dioxide 23 (22-30) mmol/L BUN 30 H (9-20) mg/dL Creatinine 1.11 (0.66-1.25) mg/dL Glucose 124 H (74-99) mg/dL Calcium 8.3 L (8.4-10.2) mg/dL Total Bilirubin 0.9 (0.2-1.3) mg/dL AST 25 (17-59) U/L ALT 21 (4-49) U/L Alkaline Phosphatase 86 (38-126) U/L Total Protein 5.1 L (6.3-8.2) g/dL Albumin 2.7 L (3.5-5.0) g/dL Assessment and Plan (1) Typhlitis Current Visit: Yes Status: Acute Code(s): K37 - UNSPECIFIED APPENDICITIS SNOMED Code(s): 26902233 (2) Abdominal pain, right lower quadrant Current Visit: Yes Status: Acute Code(s): R10.31 - RIGHT LOWER QUADRANT PAIN SNOMED Code(s): 549109224 (3) Malignant neoplasm of bladder, unspecified Current Visit: Yes Status: Acute Priority: High Code(s): C67.9 - MALIGNANT NEOPLASM OF BLADDER, UNSPECIFIED SNOMED Code(s): 597362540 (4) Pancytopenia Current Visit: Yes Status: Acute Priority: High Code(s): D61.818 - OTHER PANCYTOPENIA SNOMED Code(s): 056707697 (5) Breast cancer in male Current Visit: Yes Status: Chronic Priority: Medium Code(s): C50.929 - MALIGNANT NEOPLASM OF UNSP SITE OF UNSPECIFIED MALE BREAST SNOMED Code(s): 242143614 (6) Prostate cancer Current Visit: Yes Status: Chronic Priority: Medium Code(s): C61 - MALIGNANT NEOPLASM OF PROSTATE SNOMED Code(s): 905420105 (7) Acute kidney injury Current Visit: No Status: Acute Code(s): N17.9 - ACUTE KIDNEY FAILURE, UNSPECIFIED SNOMED Code(s): 55808387 (8) Anemia Current Visit: No Status: Acute Code(s): D64.9 - ANEMIA, UNSPECIFIED SNOM ED Code(s): 328996188
--- NOTE | 2019-09-27 22:57 | P.PN ---
Progress Note - Text Progress Note Date: 09/27/19 Hospital course: This is a 84-year-old patient of Dr. Casarez. Patient had a locally advanced hig h-grade prostate cancer and diffuse osseous metastasis. Also had retroperitoneal adenopathy with right hydronephrosis. He was treated with androgen deprivation therapy and responded very well. PSA came down to less than 1. Subsequently he was noted to have some right renal atrophy. He again had cross immaturity in July 2019 and cystoscopy revealed a 2.5 cm mass of the bladder 4. Suspicious for urothelial carcinoma. He was supposed to have undergone TURP of the tumor but was Admitted with-pneumonia, acute hypoxic respiratory failure, acute COPD exacerbation. UTI with Enterococcus faecalis. Was discharged on September 19. Also workup in place for possible's pancytopenia from androgen deprivation therapy. Now admitted with low blood pressure, lower extremity edema. On September 26 underwent a bone marrow biopsy. Today-patient is doing well in the daytime. Late in the evening started having increasing abdominal pain. I did order a computed tomography scan of the abdomen. He had tolerated his diet earlier.. Review of systems: Was done for constitutional, cardiovascular, GI, pulmonary. relevant finding as above Active Medications Calcium Acetate (Phoslo) 667 mg PO BID-W/MEALS [facility] Last Admin: 09/27/19 17:40 Dose: 667 mg Documented by: Cholecalciferol (Vitamin D3 (25 Mcg = 1000 Iu)) 1,000 unit PO BID [facility] Last Admin: 09/27/19 20:07 Dose: 1,000 unit Documented by: Cyanocobalamin (Vitamin B-12) 1,000 mcg PO DAILY [facility] Last Admin: 09/27/19 07:55 Dose: 1,000 mcg Documented by: Filgrastim (Zarxio) 480 mcg SQ DAILY [facility] Last Admin: 09/27/19 07:55 Dose: 480 mcg Documented by: Sodium Chloride (Saline 0.9%) 1,000 mls @ 50 mls/hr IV .Q20H [facility] Last Admin: 09/27/19 07:40 Dose: Not Given Documented by: Piperacillin Sod/Tazobactam (Sod 3.375 gm/ Sodium Chloride) 100 mls @ 25 mls/hr IVPB Q8HR [facility] Naloxone HCl (Narcan) 0.2 mg IV Q2M PRN PRN Reason: Opioid Reversal Tamsulosin HCl (Flomax) 0.8 mg PO W/SUPPER NAYELI Last Admin: 09/27/19 17:40 Dose: 0.8 mg Documented by: Physical examination: VITAL SIGNS: 98.4, 78, 18, 100/61, 92% room air GENERAL: Propped up in bed, comfortable EYES: Pupils equal. Conjunctiva normal. HEENT: External appearance of nose and ears normal, oral cavity grossly normal. NECK: JVD not raised; masses not palpable. HEART: First and second heart sounds are normal; no edema. LUNGS: Respiratory rate better, improved air entry ABDOMEN: Soft, lower abdominal mild tenderness, no guarding or rigidity, liver spleen not palpable, no masses palpable. PSYCH: Alert and oriented x3; mood and affect normal. 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 INVESTIGATIONS, reviewed in the clinical context: White count 1.6 hemoglobin 8.9 platelets 62 potassium 3.7 bun 30 creatinine 1.11 Previous testing: Bun 50 creatinine 1.43 Assessment: -Hypotension from volume loss, POA -Acute kidney injury, prerenal -Acute COPD exacerbation in an ex-smoker, -Acute hypoxic respiratory failure from pneumonia, corrected -History of prostate cancer that was treated with androgen deprivation therapy to which patient responded well -Chronic kidney disease with some atrophy of the right kidney, stage III -Bladder tumor pending resection -essential hypertension -Hyperlipidemia -Pancytopenia, possibly from antiandrogen therapy, rule out MDS,, status post bone marrow biopsy -Worsening abdominal pain, computed tomography scan abdomen and surgical consultation ordered. Plan: -Earlier in the the day patient was doing fine. He does having more abdominal pain. I did order a computed tomography scan of the abdomen with a surgical consultation. Also urology consultation was made. Of course discharge was canceled.
[2019-09-27] MEDS: PIPERACILLIN-TAZOBACTAM 3.375 GM in SODIUM CHLORIDE 0.9% 100 ML IVPB SCH (23:12)
[2019-09-28] MEDS: SODIUM CHLORIDE 0.9% 1,000 ML IV SCH ×2 (04:31→21:25)
[2019-09-28] MEDS: PIPERACILLIN-TAZOBACTAM 3.375 GM in SODIUM CHLORIDE 0.9% 100 ML IVPB SCH ×3 (07:14→23:31)
[2019-09-28] MEDS: FILGRASTIM-SNDZ 480 MCG/0.8 ML SYRINGE SQ SCH (07:20)
[2019-09-28] MEDS: CALCIUM ACETATE 667 MG TAB PO SCH ×2 (07:25→17:51)
[2019-09-28 09:12] LABS: Anisocytosis Moderate; HCT 22.4 % (39.0-53.0); Hypochromasia Moderate; MCH 29.8 pg (25.0-35.0); MCHC 30.6 g/dL (31.0-37.0); MCV 97.4 fL (80.0-100.0); Macrocytosis Slight; Mean Platelet Volume 11.5; Platelet Count 80 k/uL (150-450); Poikilocytosis Slight; RDW 20.8 % (11.5-15.5)
[2019-09-28 09:26] LABS: HGB 6.8 gm/dL (13.0-17.5)
[2019-09-28 09:46] LABS: Albumin 2.4 g/dL (3.5-5.0); Calcium 7.8 mg/dL (8.4-10.2); Potassium 3.5 mmol/L (3.5-5.1); Total Bilirubin 0.8 mg/dL (0.2-1.3); Total Protein 4.7 g/dL (6.3-8.2)
[2019-09-28] MEDS: CYANOCOBALAMIN 500 MCG TAB PO SCH (10:11)
[2019-09-28] MEDS: CHOLECALCIFEROL 1,000 UNIT TAB PO SCH ×2 (10:12→19:37)
[2019-09-28] MEDS: FINASTERIDE 5 MG TAB PO SCH (10:14)
[2019-09-28 10:50] LABS: Band Neutrophils % 1 %; Lymphocytes # (M) 0.74 k/uL (1.0-4.8); Monocytes # (M) 0.04 k/uL (0-1.0); Neutrophils % (M) 60 %; Nucleated Red Blood Cells 0 /100 WBC (0-0); Total Cells Counted 100
[2019-09-28 10:51] LABS: Polychromasia Present; Target Cells Present
--- NOTE | 2019-09-28 11:46 | P.PN ---
<Merna Forbes - Last Filed: 09/28/19 11:40> Subjective Progress Note Date: 09/28/19 CHIEF COMPLAINT: free air HISTORY OF PRESENT ILLNESS: Patient seen and examined this morning at the bedside. Patient reports improvement in abdominal pain compared to yesterday. He is currently complaining of mild bilateral lower quadrant pain. She is passing flatus. Reports normal bowel movement yesterday. Denies nausea or vomiting. Hemoglobin 6.8. Patient is scheduled to receive RBC transfusion today. PHYSICAL EXAM: VITAL SIGNS: Reviewed. GENERAL: Well-developed in no acute distress. HEENT: No sclera icterus. Extraocular movements grossly intact. Moist buccal mucosa. Head is atraumatic, normocephalic. ABDOMEN: Soft. Nondistended. Mild tenderness upon palpation of bilateral lower quadrant. NEUROLOGIC: Alert and oriented. Cranial nerves II through XII grossly intact. ASSESSMENT: 1. Abnormal computed tomography scan, possible air along the cecum wall, possible bowel ischemia 2. Abdominal pain 3. History of prostate cancer 4. History of breast cancer 5. Bladder cancer PLAN: NPO Continue IV antibiotics Monitor labs Patient to receive RBC transfusion today. Monitor hemoglobin. Further recommendations pending evaluation by Dr. Burch this afternoon Nurse practitioner note has been reviewed by physician. Signing provider agrees with the documented findings, assessment, and plan of care. Objective - Vital Signs Vital signs: Vital Signs Temp 97.9 F 09/28/19 05:00 Pulse 68 09/28/19 05:00 Resp 18 09/28/19 05:00 BP 91/54 09/28/19 05:00 Pulse Ox 92 L 09/28/19 05:00 Intake & Output 09/27/19 09/28/19 09/28/19 18:59 06:59 18:59 Intake Total 1560 0 Output Total 1300 1100 Balance 260 -1100 0 Intake: Oral 1560 0 Output: Urine 1300 1100 Other: Voiding Method Indwelling Catheter Indwelling Catheter # Voids 1 - Labs CBC & Chem 7: 09/28/19 07:58 09/28/19 07:58 Labs: Abnormal Lab Results - Last 24 Hours (Table) 09/25/19 09/27/19 09/28/19 Range/Units 09:32 08:41 07:58 WBC 2.0 L (3.8-10.6) k/uL RBC 2.30 L (4.30-5.90) m/uL Hgb 6.8 L* D (13.0-17.5) gm/dL Hct 22.4 L (39.0-53.0) % MCHC 30.6 L (31.0-37.0) g/dL RDW 20.8 H (11.5-15.5) % Plt Count 62 L 80 L (150-450) k/uL Neutrophils # (Manual) 0.80 L 1.20 L (1.3-7.7) k/uL Lymphocytes # (Manual) 0.75 L 0.74 L (1.0-4.8) k/uL BUN (9-20) mg/dL Calcium (8.4-10.2) mg/dL Total Protein (6.3-8.2) g/dL Albumin (3.5-5.0) g/dL Crossmatch See Detail 09/28/19 Range/Units 07:58 WBC (3.8-10.6) k/uL RBC (4.30-5.90) m/uL Hgb (13.0-17.5) gm/dL Hct (39.0-53.0) % MCHC (31.0-37.0) g/dL RDW (11.5-15.5) % Plt Count (150-450) k/uL Neutrophils # (Manual) (1.3-7.7) k/uL Lymphocytes # (Manual) (1.0-4.8) k/uL BUN 36 H (9-20) mg/dL Calcium 7.8 L (8.4-10.2) mg/dL Total Protein 4.7 L (6.3-8.2) g/dL Albumin 2.4 L (3.5-5.0) g/dL Crossmatch Microbiology - Last 24 Hours (Table) 09/21/19 12:41 Blood Culture - Final Blood No Growth after 144 hours <Osei Burch - Last Filed: 09/28/19 14:36> Subjective As above. Patient with right lower quadrant pain and tenderness. Exam relatively benign. Computed tomography scan reviewed. No definitive free air seen. Pneumatosis remains within the differential. Continue antibiotics. Agree with bowel rest today. Objective - Vital Signs Vital signs: Vital Signs Temp 98 F 09/28/19 14:03 Pulse 70 09/28/19 14:03 Resp 18 09/28/19 14:03 BP 105/51 09/28/19 14:03 Pulse Ox 94 L 09/28/19 14:03 Intake & Output 09/27/19 09/28/19 09/28/19 18:59 06:59 18:59 Intake Total 1560 0 Output Total 1300 1100 Balance 260 -1100 0 Intake: Oral 1560 0 Blood Product 0 Rc As-1 Unit 0 [id number] Output: Urine 1300 1100 Other: Voiding Method Indwelling Catheter Indwelling Catheter # Voids 1 - Labs CBC & Chem 7: 09/28/19 07:58 09/28/19 07:58 Labs: Abnormal Lab Results - Last 24 Hours (Table) 09/25/19 09/28/19 09/28/19 Range/Units 09:32 07:58 07:58 WBC 2.0 L (3.8-10.6) k/uL RBC 2.30 L (4.30-5.90) m/uL Hgb 6.8 L* D (13.0-17.5) gm/dL Hct 22.4 L (39.0-53.0) % MCHC 30.6 L (31.0-37.0) g/dL RDW 20.8 H (11.5-15.5) % Plt Count 80 L (150-450) k/uL Neutrophils # (Manual) 1.20 L (1.3-7.7) k/uL Lymphocytes # (Manual) 0.74 L (1.0-4.8) k/uL BUN 36 H (9-20) mg/dL Calcium 7.8 L (8.4-10.2) mg/dL Total Protein 4.7 L (6.3-8.2) g/dL Albumin 2.4 L (3.5-5.0) g/dL Crossmatch See Detail Microbiology - Last 24 Hours (Table) 09/21/19 12:41 Blood Culture - Final Blood No Growth after 144 hours
--- NOTE | 2019-09-28 12:34 | P.PN ---
Subjective Progress Note Date: 09/28/19 Principal diagnosis: symptomatic anemia In follow-up today, discussed CT of the abdomen and pelvis yesterday. Patient was prepped for discharge, unfortunately he developed right lower quadrant pain that was very severe, this led to a CT scan, some free air was reported along th e cecum, Surgery has been consulted. Patient is currently nothing by mouth, the pain in his abdomen is less today, he denies any nausea, vomiting, diarrhea or bleeding. His hemoglobin is down to 6.8 today. Objective - Vital Signs Vital signs: Vital Signs Temp 97.9 F 09/28/19 05:00 Pulse 73 09/28/19 12:17 Resp 17 09/28/19 12:17 BP 117/57 09/28/19 12:17 Pulse Ox 100 09/28/19 12:17 Intake & Output 09/27/19 09/28/19 09/28/19 18:59 06:59 18:59 Intake Total 1560 0 Output Total 1300 1100 Balance 260 -1100 0 Intake: Oral 1560 0 Output: Urine 1300 1100 Other: Voiding Method Indwelling Catheter Indwelling Catheter # Voids 1 - Constitutional General appearance: Present: average body habitus, cooperative, no acute distress - EENT Eyes: Present: anicteric sclerae, EOMI ENT: Present: hearing grossly normal - Respiratory Respiratory: bilateral: CTA - Cardiovascular Rhythm: regular Heart sounds: normal: S1, S2 - Peripheral edema leg Peripheral Edema: bilateral: 2+, Pitting - Gastrointestinal Gastrointestinal Comment(s): mild tenderness with deep palpation, no rebound tenderness General gastrointestinal: Present: normal bowel sounds, soft - Neurologic Neurologic: Present: CNII-XII intact - Musculoskeletal Musculoskeletal: Present: generalized weakness, strength equal bilaterally - Psychiatric Psychiatric: Present: A&O x's 3, appropriate affect, intact judgment & insight - Labs CBC & Chem 7: 09/28/19 07:58 09/28/19 07:58 Labs: Abnormal Lab Results - Last 24 Hours (Table) 09/25/19 09/28/19 09/28/19 Range/Units 09:32 07:58 07:58 WBC 2.0 L (3.8-10.6) k/uL RBC 2.30 L (4.30-5.90) m/uL Hgb 6.8 L* D (13.0-17.5) gm/dL Hct 22.4 L (39.0-53.0) % MCHC 30.6 L (31.0-37.0) g/dL RDW 20.8 H (11.5-15.5) % Plt Count 80 L (150-450) k/uL Neutrophils # (Manual) 1.20 L (1.3-7.7) k/uL Lymphocytes # (Manual) 0.74 L (1.0-4.8) k/uL BUN 36 H (9-20) mg/dL Calcium 7.8 L (8.4-10.2) mg/dL Total Protein 4.7 L (6.3-8.2) g/dL Albumin 2.4 L (3.5-5.0) g/dL Crossmatch See Detail Microbiology - Last 24 Hours (Table) 09/21/19 12:41 Blood Culture - Final Blood No Growth after 144 hours - Imaging and Cardiology CT scan - abdomen: report reviewed CT scan - pelvis: report reviewed Assessment and Plan (1) Abdominal pain, right lower quadrant Narrative/Plan: CT of the abdomen and pelvis performed. Surgery was consulted for review of the CT due to the free air reported along the cecum. From chart review, medical management planned at this time. Patient is nothing by mouth, medications only. His abdominal pain is less compared to yesterday. Suspicion is that with the ongoing low white blood cell count and lack of oral intake/poor appetite has led to increased bacterial skylar and inflammation causing patient's discomfort and symptoms. Patient is going to continue on antibiotics and G-CSF for now. This was discussed with him and his . They verbalized understanding. Current Visit: Yes Status: Acute Priority: High Code(s): R10.31 - RIGHT LOWER QUADRANT PAIN SNOMED Code(s): 662728266 (2) Pancytopenia Narrative/Plan: Transfuse to keep patient's hemoglobin greater than 7, today is 6.8, 1 unit ord ered. Keep platelet counts greater than 10,000, unless patient is symptomatic, 80,000 today. G-CSF has been initiated for low absolute neutrophil count, cont while inpatient. WBC 2/ANC#1.2 Cancer treatments ok to resume on DC Bone marrow biopsy and aspirate done, pending results. F/U with Dr. Colon next week for results, appt in chart CBC daily Current Visit: Yes Status: Acute Priority: High Code(s): D61.818 - OTHER PANCYTOPENIA SNOMED Code(s): 590369186 (3) Breast cancer in male Narrative/Plan: Last evaluated in the office on 09/04/19. No clinical evidence of recurrence of breast cancer. Plan is to continue tamoxifen but, at this time we are going to hold it while inpatient, along with his other treatments for cancer, to see what happens to his blood counts. S/P BM Bx Current Visit: Yes Status: Chronic Priority: Medium Code(s): C50.929 - MALIGNANT NEOPLASM OF UNSP SITE OF UNSPECIFIED MALE BREAST SNOMED Code(s): 054827644 (4) Prostate cancer Narrative/Plan: Patient follows with Urology, Dr. Kelly. Loreiga, 250 mg daily held. Continue 5 mg daily of prednisone. Patient is getting Xgeva outpatient, this can be rescheduled when he is discharged. PSA 0.3. Disease is controlled on current regimen Current Visit: Yes Status: Chronic Priority: Medium Code(s): C61 - MALIGNANT NEOPLASM OF PROSTATE SNOMED Code(s): 503849227 (5) Malignant neoplasm of bladder, unspecified Narrative/Plan: Recent mentioned in the notes of bladder malignancy with plans for resection. WBC/ANC will not likely be satisfactory for a Surgeon to consider procedure at this time. Current Visit: Yes Status: Acute Priority: High Code(s): C67.9 - MALIGNANT NEOPLASM OF BLADDER, UNSPECIFIED SNOMED Code(s): 250147928 Plan: Doctor attests: I performed a history and physical examination of this patient, developed impression and plan of care, discussed with dictator. I agree with dictators note, documented as a scribe.
[2019-09-28] MEDS: TAMSULOSIN 0.4 MG CAP.ER.24H PO SCH (17:50)
--- NOTE | 2019-09-28 21:37 | P.PN ---
Progress Note - Text Progress Note Date: 09/28/19 Hospital course: This is a 84-year-old patient of Dr. Casarez. Patient had a locally advanced hig h-grade prostate cancer and diffuse osseous metastasis. Also had retroperitoneal adenopathy with right hydronephrosis. He was treated with androgen deprivation therapy and responded very well. PSA came down to less than 1. Subsequently he was noted to have some right renal atrophy. He again had cross immaturity in July 2019 and cystoscopy revealed a 2.5 cm mass of the bladder 4. Suspicious for urothelial carcinoma. He was supposed to have undergone TURP of the tumor but was Admitted with-pneumonia, acute hypoxic respiratory failure, acute COPD exacerbation. UTI with Enterococcus faecalis. Was discharged on September 19. Also workup in place for possible's pancytopenia from androgen deprivation therapy. Now admitted with low blood pressure, lower extremity edema. On September 26 underwent a bone marrow biopsy. On September 27 has significant abdominal pain. Computed tomography scan of the abdomen showed some free air along the cecum. Today-abdominal pain better. Empirically started on antibiotic. Has remained nothing by mouth. at the bedside. Patient had a bowel movement yesterday. No nausea vomiting. Positive flatus today. Review of systems: Was done for constitutional, cardiovascular, GI, pulmonary. relevant finding as above Active Medications Calcium Acetate (Phoslo) 667 mg PO BID-W/MEALS [facility] Last Admin: 09/28/19 17:51 Dose: Not Given Documented by: Cholecalciferol (Vitamin D3 (25 Mcg = 1000 Iu)) 1,000 unit PO BID [facility] Last Admin: 09/28/19 19:37 Dose: 1,000 unit Documented by: Cyanocobalamin (Vitamin B-12) 1,000 mcg PO DAILY [facility] Last Admin: 09/28/19 10:11 Dose: 1,000 mcg Documented by: Filgrastim (Zarxio) 480 mcg SQ DAILY [facility] Last Admin: 09/28/19 07:20 Dose: 480 mcg Documented by: Finasteride (Proscar) 5 mg PO DAILY [facility] Last Admin: 09/28/19 10:14 Dose: 5 mg Documented by: Sodium Chloride (Saline 0.9%) 1,000 mls @ 50 mls/hr IV .Q20H [facility] Last Admin: 09/28/19 21:25 Dose: 50 mls/hr Documented by: Piperacillin Sod/Tazobactam (Sod 3.375 gm/ Sodium Chloride) 100 mls @ 25 mls/hr IVPB Q8HR [facility] Last Admin: 09/28/19 17:51 Dose: 25 mls/hr Documented by: Naloxone HCl (Narcan) 0.2 mg IV Q2M PRN PRN Reason: Opioid Reversal Tamsulosin HCl (Flomax) 0.8 mg PO W/SUPPER [facility] Last Admin: 09/28/19 17:50 Dose: 0.8 mg Documented by: Physical examination: VITAL SIGNS: 98.1, 70, 18, 88/51, 94% GENERAL: Sitting up in a recliner, but tired EYES: Pupils equal. Conjunctiva normal. HEENT: External appearance of nose and ears normal, oral cavity grossly normal. NECK: JVD not raised; masses not palpable. HEART: First and second heart sounds are normal; no edema. LUNGS: Respiratory rate better, improved air entry ABDOMEN: Soft, lower abdominal mild tenderness, no guarding or rigidity, liver spleen not palpable, no masses palpable. PSYCH: Alert and oriented x3; mood and affect normal. 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 Computed tomography scan showing some free air along the cecum. Has remained nothing by mouth. Empirically antibiotics started. -Hypotension from volume loss, POA -Acute kidney injury, prerenal -Acute COPD exacerbation in an ex-smoker, -Acute hypoxic respiratory failure from pneumonia, corrected -History of prostate cancer that was treated with androgen deprivation therapy to which patient responded well -Chronic kidney disease with some atrophy of the right kidney, stage III -Bladder tumor pending resection -essential hypertension -Hyperlipidemia -Pancytopenia, possibly from antiandrogen therapy, rule out MDS,, status post bone marrow [id number] outpatient with Dr. Colon Plan: Patient started and IV Zosyn. Made nothing by mouth. Some drops in hemoglobin. Repeat labs in the morning. Care was discussed length with the patient . We'll see how patient does. Repeat labs in the morning.
--- NOTE | 2019-09-28 21:43 | P.GSCN ---
History of Present Illness Consult date: 09/28/19 Reason for Consult: Bladder mass History of present illness: Mr. Nye is 84 yo male admitted to the hospital with pancytopenia and right lower quadrant abdominal pain. He has a know history of bladder mass. He was scheduled for TURBT with Dr sim, he had surgery cancelled due ongoing medical issues. He denies any gross hematuria. He underwent a CT which redomnstrated the known bladder masses. Of note he also has known history of prostate cancer Today he is been complaining of straining with urination, weak stream, he is very bothersome by his urinary symptoms. He is currently on flomax 0.8 mg daily. Review of Systems - Constitutional Reports weakness, Denies chills, Denies fever - Cardiovascular Reports edema, Denies chest pain - Respiratory Reports cough, Denies dyspnea - Gastrointestinal Reports abdominal pain, Denies nausea, Denies vomiting - Genitourinary Reports urinary frequency, Reports urinary retention, Denies hematuria - Psychiatric Denies anxiety, Denies confusion - Endocrine Reports fatigue, Reports nocturia Past Medical History Past Medical History: Cancer, Hyperlipidemia, Hypertension Additional Past Medical History / Comment(s): hx prostate cancer pt states currently in remission, rt breast cancer recent mammogram "clean", anemia, recent infection lower rt leg tx with antibiotics. bladder mass History of Any Multi-Drug Resistant Organisms: None Reported Past Surgical History: Appendectomy, Breast Surgery, Orthopedic Surgery Additional Past Surgical History / Comment(s): colonoscopy, rt breast mastectomy, arthroscopic knee surgery, spleenectomy Past Anesthesia/Blood Transfusion Reactions: No Reported Reaction Past Psychological History: Anxiety Additional Psychological History / Comment(s): Pt resides with his spouse. He is independent. Smoking Status: Former smoker Past Alcohol Use History: Occasional Additional Past Alcohol Use History / Comment(s): PT started smoking in 1951 and quit in 2004. He was a 2-2.5 ppd smoker. Pt drank alcohol in the past but denies ever having alcoholism. He has drank any alcohol in months. Past Drug Use History: None Reported - Past Family History Father Family Medical History: Cancer Additional Family Medical History / Comment(s): prostate Sister(s) Family Medical History: Cancer Additional Family Medical History / Comment(s): breast Brother(s) Family Medical History: Cancer Additional Family Medical History / Comment(s): colon cancer Mother Family Medical History: No Reported History Additional Family Medical History / Comment(s): Mother lived to be 98yrs old. Medications and Allergies Home Medications Medication Instructions Recorded Confirmed Type Abiraterone Acetate [Zytiga] 250 mg PO DAILY 02/07/19 09/21/19 History Tamsulosin HCl [Flomax] 0.8 mg PO W/SUPPER 02/07/19 09/21/19 History predniSONE 5 mg PO DAILY 02/07/19 09/21/19 History Tamoxifen Citrate 20 mg PO W/SUPPER 09/15/19 09/21/19 History Xgeva 120mg/1.7ml Subcutaneous 1.7 ml SQ Q90D 09/15/19 09/21/19 History Calcium Acetate [PhosLo] 667 mg PO BID-W/MEALS #60 tab 09/27/19 Rx Cholecalciferol [Vitamin D3 (25 1,000 unit PO BID #60 tab 09/27/19 Rx Mcg = 1000 Iu)] Cyanocobalamin [Vitamin B-12] 1,000 mcg PO DAILY #30 tab 09/27/19 Rx Allergies Allergy/AdvReac Type Severity Reaction Status Date / Time No Known Allergies Allergy Verified 09/21/19 13:02 Surgical - Exam Vital Signs Temp Pulse Resp BP Pulse Ox 98.2 F 76 20 96/49 93 L 09/21/19 12:17 09/21/19 12:17 09/21/19 12:17 09/21/19 12:17 09/21/19 12:17 - General no distress, no pain - Eyes normal ocular movement, no pale - ENT normal mucosa, no hearing loss - Respiratory normal expansion, normal respiratory effort - Abdomen Abdomen: soft, tender (RLQ), no rebound - Psychiatric oriented to time, oriented to person, oriented to place Results - Labs 09/28/19 07:58 09/28/19 07:58 Abnormal Lab Results - Last 24 Hours (Table) 09/25/19 09/28/19 09/28/19 Range/Units 09:32 07:58 07:58 WBC 2.0 L (3.8-10.6) k/uL RBC 2.30 L (4.30-5.90) m/uL Hgb 6.8 L* D (13.0-17.5) gm/dL Hct 22.4 L (39.0-53.0) % MCHC 30.6 L (31.0-37.0) g/dL RDW 20.8 H (11.5-15.5) % Plt Count 80 L (150-450) k/uL Neutrophils # (Manual) 1.20 L (1.3-7.7) k/uL Lymphocytes # (Manual) 0.74 L (1.0-4.8) k/uL BUN 36 H (9-20) mg/dL Calcium 7.8 L (8.4-10.2) mg/dL Total Protein 4.7 L (6.3-8.2) g/dL Albumin 2.4 L (3.5-5.0) g/dL Crossmatch See Detail Diabetes panel 09/28/19 Range/Units 07:58 Sodium 138 (137-145) mmol/L Potassium 3.5 (3.5-5.1) mmol/L Chloride 105 (98-107) mmol/L Carbon Dioxide 25 (22-30) mmol/L BUN 36 H (9-20) mg/dL Creatinine 1.20 (0.66-1.25) mg/dL Glucose 92 (74-99) mg/dL Calcium 7.8 L (8.4-10.2) mg/dL AST 22 (17-59) U/L ALT 18 (4-49) U/L Alkaline Phosphatase 68 (38-126) U/L Total Protein 4.7 L (6.3-8.2) g/dL Albumin 2.4 L (3.5-5.0) g/dL Calcium panel 09/28/19 Range/Units 07:58 Calcium 7.8 L (8.4-10.2) mg/dL Albumin 2.4 L (3.5-5.0) g/dL Pituitary panel 09/28/19 Range/Units 07:58 Sodium 138 (137-145) mmol/L Potassium 3.5 (3.5-5.1) mmol/L Chloride 105 (98-107) mmol/L Carbon Dioxide 25 (22-30) mmol/L BUN 36 H (9-20) mg/dL Creatinine 1.20 (0.66-1.25) mg/dL Glucose 92 (74-99) mg/dL Calcium 7.8 L (8.4-10.2) mg/dL Adrenal panel 09/28/19 Range/Units 07:58 Sodium 138 (137-145) mmol/L Potassium 3.5 (3.5-5.1) mmol/L Chloride 105 (98-107) mmol/L Carbon Dioxide 25 (22-30) mmol/L BUN 36 H (9-20) mg/dL Creatinine 1.20 (0.66-1.25) mg/dL Glucose 92 (74-99) mg/dL Calcium 7.8 L (8.4-10.2) mg/dL Total Bilirubin 0.8 (0.2-1.3) mg/dL AST 22 (17-59) U/L ALT 18 (4-49) U/L Alkaline Phosphatase 68 (38-126) U/L Total Protein 4.7 L (6.3-8.2) g/dL Albumin 2.4 L (3.5-5.0) g/dL Assessment and Plan Assessment: 84 yo male with known hx of bladder mass was schdueled for TURBT by Dr Sim cases cancelled due to ongoing medical issues. Currently in hospital for metz cytopenia and RLQ abd pain. He underwent CT which redemonstrated bladder mass. He also has bothersome LUTS on flomax 0.8 mg -Patient will need to be scheduled for TURBT once medically stable for surgery, he can f/u with Dr Sim in 2-3 weeks as an outpatient to arrange for TURBT -Can start proscar in addition to his flomax 0.8 for his LUTS
[2019-09-28] MEDS: LACTATED RINGERS 1,000 ML IV SCH (22:15)
[2019-09-29] MEDS: LACTATED RINGERS 1,000 ML IV SCH ×3 (04:51→21:11)
[2019-09-29] MEDS: CHOLECALCIFEROL 1,000 UNIT TAB PO SCH ×2 (07:57→21:11)
[2019-09-29] MEDS: FINASTERIDE 5 MG TAB PO SCH (07:57)
[2019-09-29] MEDS: CALCIUM ACETATE 667 MG TAB PO SCH ×2 (07:57→17:10)
[2019-09-29] MEDS: CYANOCOBALAMIN 500 MCG TAB PO SCH (07:58)
[2019-09-29 08:17] LABS: Anisocytosis Moderate; Basophils % (A) 0 %; Eosinophils % (A) 1 %; HCT 24.3 % (39.0-53.0); HGB 7.5 gm/dL (13.0-17.5); Hypochromasia Moderate; Lymphocytes # (A) 0.5 k/uL (1.0-4.8); Lymphocytes % (A) 20 %; MCH 29.1 pg (25.0-35.0); MCHC 30.7 g/dL (31.0-37.0); MCV 94.8 fL (80.0-100.0); Macrocytosis Slight; Mean Platelet Volume 11.3; Monocytes % (A) 1 %; Neutrophils # (A) 1.8 k/uL (1.3-7.7); Neutrophils % (A) 75 %; Poikilocytosis Moderate; RBC 2.57 m/uL (4.30-5.90); RDW 21.4 % (11.5-15.5); WBC 2.4 k/uL (3.8-10.6)
[2019-09-29 08:37] LABS: Albumin 2.3 g/dL (3.5-5.0); Calcium 7.4 mg/dL (8.4-10.2); Potassium 3.4 mmol/L (3.5-5.1); Total Bilirubin 0.9 mg/dL (0.2-1.3); Total Protein 4.5 g/dL (6.3-8.2)
[2019-09-29 08:51] LABS: Platelet Count 94 k/uL (150-450)
[2019-09-29] MEDS: FILGRASTIM-SNDZ 480 MCG/0.8 ML SYRINGE SQ SCH (09:03)
[2019-09-29] MEDS: PIPERACILLIN-TAZOBACTAM 3.375 GM in SODIUM CHLORIDE 0.9% 100 ML IVPB SCH ×2 (09:03→17:09)
[2019-09-29] MEDS: IOPAMIDOL CONTRAST (ORAL USE) VIAL PO PRN ×2 (09:35→10:37)
--- NOTE | 2019-09-29 09:56 | P.PN ---
<Merna Forbes Mann - Last Filed: 09/29/19 09:52> Subjective Progress Note Date: 09/29/19 CHIEF COMPLAINT: free air HISTORY OF PRESENT ILLNESS: Patient seen and examined this morning at the bedside. Patient states he did not sleep all night due to abdominal pain. He reports increased abdominal pain this morning. Rating pain 9/10. Pain is localized to right lower quadrant. Passing flatus. Reports bowel movement yesterday. PHYSICAL EXAM: VITAL SIGNS: Reviewed. GENERAL: Well-developed in no acute distress. HEENT: No sclera icterus. Extraocular movements grossly intact. Moist buccal mucosa. Head is atraumatic, normocephalic. ABDOMEN: Soft. Nondistended. Tenderness upon palpation of right lower quadrant. NEUROLOGIC: Alert and oriented. Cranial nerves II through XII grossly intact. ASSESSMENT: 1. Abnormal computed tomography scan, possible air along the cecum wall, possible bowel ischemia 2. Abdominal pain 3. History of prostate cancer 4. History of breast cancer 5. Bladder cancer PLAN: NPO Continue IV antibiotics Monitor labs Due to increasing abdominal pain, will repeat CT abdomen pelvis with oral and IV contrast Nurse practitioner note has been reviewed by physician. Signing provider agrees with the documented findings, assessment, and plan of care. Objective - Vital Signs Vital signs: Vital Signs Temp 97.7 F 09/29/19 05:00 Pulse 68 09/29/19 05:00 Resp 16 09/29/19 05:00 BP 113/55 09/29/19 05:00 Pulse Ox 93 L 09/29/19 05:00 Intake & Output 09/28/19 09/29/19 09/29/19 18:59 06:59 18:59 Intake Total 1710 2015 Output Total 3000 600 Balance -1290 1415 Intake: Intake, IV Titration 800 1275 Amount Lactated Ringers 1,000 ml 1125 @ 125 mls/hr IV .Q8H [facility] Rx#:[id number] Piperacillin-Tazobactam 3 200 .375 gm In Sodium Chloride 0.9% 100 ml @ 25 mls/hr IVPB Q8HR [facility] Rx# :[id number] Sodium Chloride 0.9% 1, 600 150 000 ml @ 50 mls/hr IV . Q20H [facility] Rx#:[id number] Oral 600 740 Blood Product 310 Rc As-1 Unit 310 [id number] Output: Urine 3000 600 Other: Voiding Method Urinal Urinal # Voids 1 2 - Labs CBC & Chem 7: 09/29/19 07:47 09/29/19 07:47 Labs: Abnormal Lab Results - Last 24 Hours (Table) 09/25/19 09/28/19 09/29/19 Range/Units 09:32 07:58 07:47 WBC 2.4 L (3.8-10.6) k/uL RBC 2.57 L (4.30-5.90) m/uL Hgb 7.5 L (13.0-17.5) gm/dL Hct 24.3 L (39.0-53.0) % MCHC 30.7 L (31.0-37.0) g/dL RDW 21.4 H (11.5-15.5) % Plt Count 94 L (150-450) k/uL Neutrophils # (Manual) 1.20 L (1.3-7.7) k/uL Lymphocytes # 0.5 L (1.0-4.8) k/uL Lymphocytes # (Manual) 0.74 L (1.0-4.8) k/uL Potassium (3.5-5.1) mmol/L Chloride (98-107) mmol/L BUN (9-20) mg/dL Calcium (8.4-10.2) mg/dL Total Protein (6.3-8.2) g/dL Albumin (3.5-5.0) g/dL Crossmatch See Detail 09/29/19 Range/Units 07:47 WBC (3.8-10.6) k/uL RBC (4.30-5.90) m/uL Hgb (13.0-17.5) gm/dL Hct (39.0-53.0) % MCHC (31.0-37.0) g/dL RDW (11.5-15.5) % Plt Count (150-450) k/uL Neutrophils # (Manual) (1.3-7.7) k/uL Lymphocytes # (1.0-4.8) k/uL Lymphocytes # (Manual) (1.0-4.8) k/uL Potassium 3.4 L (3.5-5.1) mmol/L Chloride 108 H (98-107) mmol/L BUN 30 H (9-20) mg/dL Calcium 7.4 L (8.4-10.2) mg/dL Total Protein 4.5 L (6.3-8.2) g/dL Albumin 2.3 L (3.5-5.0) g/dL Crossmatch <Osei Burch - Last Filed: 09/29/19 13:05> Subjective Patient is having increased pain this morning. Given the previous CAT scan f indings I was concerned about the possibility of progression of inflammatory changes at the cecum with possible perforation. The patient went for a stat CAT scan. Thankfully the CAT scan actually has better opacification of the bowel. There is no inflammation seen at all at this point. His pain seems to be more in the right hip region. Question musculoskeletal source of discomfort at this point. No bony metastases seen on bone windows. Resume diet. Advance as tolerated. I am not entirely convinced that typhlitis was present initially. Continue antibiotics empirically since he has shown improvement. Objective - Vital Signs Vital signs: Vital Signs Temp 97.9 F 09/29/19 12:23 Pulse 69 09/29/19 12:23 Resp 16 09/29/19 12:23 BP 109/57 09/29/19 12:23 Pulse Ox 96 09/29/19 12:23 Intake & Output 09/28/19 09/29/19 09/29/19 18:59 06:59 18:59 Intake Total 1710 2015 Output Total 3000 600 Balance -1290 1415 Intake: Intake, IV Titration 800 1275 Amount Lactated Ringers 1,000 ml 1125 @ 125 mls/hr IV .Q8H [facility] Rx#:[id number] Piperacillin-Tazobactam 3 200 .375 gm In Sodium Chloride 0.9% 100 ml @ 25 mls/hr IVPB Q8HR [facility] Rx# :[id number] Sodium Chloride 0.9% 1, 600 150 000 ml @ 50 mls/hr IV . Q20H [facility] Rx#:[id number] Oral 600 740 Blood Product 310 Rc As-1 Unit 310 [id number] Output: Urine 3000 600 Other: Voiding Method Urinal Urinal Urinal # Voids 1 2 - Labs CBC & Chem 7: 09/29/19 07:47 09/29/19 07:47 Labs: Abnormal Lab Results - Last 24 Hours (Table) 09/25/19 09/29/19 09/29/19 Range/Units 09:32 07:47 07:47 WBC 2.4 L (3.8-10.6) k/uL RBC 2.57 L (4.30-5.90) m/uL Hgb 7.5 L (13.0-17.5) gm/dL Hct 24.3 L (39.0-53.0) % MCHC 30.7 L (31.0-37.0) g/dL RDW 21.4 H (11.5-15.5) % Plt Count 94 L (150-450) k/uL Lymphocytes # 0.5 L (1.0-4.8) k/uL Potassium 3.4 L (3.5-5.1) mmol/L Chloride 108 H (98-107) mmol/L BUN 30 H (9-20) mg/dL Calcium 7.4 L (8.4-10.2) mg/dL Total Protein 4.5 L (6.3-8.2) g/dL Albumin 2.3 L (3.5-5.0) g/dL Crossmatch See Detail
--- NOTE | 2019-09-29 12:38 | CT ---
EXAMINATION TYPE: CT abdomen pelvis w con DATE OF EXAM: 09/29/2019 COMPARISON: 09/27/19 HISTORY: Pancytopenia, Anemia, Pneumonia CT DLP: 1586 mGycm CONTRAST: CT scan of the abdomen and pelvis is performed with Oral Contrast and with IV Contrast, patient injec travis with 100 mL of Isovue 300. FINDINGS: LUNG BASES-: Left basilar atelectasis and/or infiltrate and pleural effusion redemonstrated. Small ri ght-sided pleural effusion noted. LIVER/GB: No calcified gallstones. Simple centimeters cyst periphery of the posterior segment righ t hepatic lobe is unchanged. No space occupying hepatic lesion. Biliary tree is of normal caliber. PANCREAS: No inflammation. No distinct mass. SPLEEN: No splenic enlargement. No lesion seen. ADRENALS: No nodule. No thickening. KIDNEYS/BLADDER: Negative right kidney. Simple cyst midpole left kidney. No hydronephrosis. No neph rolithiasis. No distinct solid renal mass. Previously noted possible pneumatosis of the urinary blad lashon wall has resolved. Other bladder diverticula noted. No masses are seen or wall thickening noted. BOWEL: Normal appendix. Normal bowel caliber. No inflammation. No evidence for pneumatosis right he micolon. No free air or abscess. Scattered diverticula throughout the colon. Moderate to large fixed hiatal hernia. GENITAL ORGANS: No gross abnormality. LYMPH NODES: No greater than 1cm abdominal or pelvic lymph nodes are appreciated. AORTA: No significant abnormality. OSSEOUS STRUCTURES: No significant abnormality is seen. OTHER: No significant additional abnormality is seen. IMPRESSION: 1. No evidence for inflammatory change or pneumatosis of the colon at this time. Scattered diverticul osis. No obstructive change. 2. No air within the wall of the urinary bladder. Multiple urinary bladder diverticula are seen. 3. Basilar effusions and left lung base atelectasis and/or infiltrate.
--- NOTE | 2019-09-29 13:56 | P.PN ---
Subjective Progress Note Date: 09/29/19 Principal diagnosis: symptomatic anemia In follow-up today, CT of the abdomen and pelvis today. Pain in his abdomen slow to improve, he is tolerating clear liquids at this time, no fever, nausea, cramping, diarrhea or bleeding. His hemoglobin is down to 7.5 today post transfusion. Objective - Vital Signs Vital signs: Vital Signs Temp 97.9 F 09/29/19 12:23 Pulse 69 09/29/19 12:23 Resp 16 09/29/19 12:23 BP 109/57 09/29/19 12:23 Pulse Ox 96 09/29/19 12:23 Intake & Output 09/28/19 09/29/19 09/29/19 18:59 06:59 18:59 Intake Total 1710 2015 Output Total 3000 600 Balance -1290 1415 Intake: Intake, IV Titration 800 1275 Amount Lactated Ringers 1,000 ml 1125 @ 125 mls/hr IV .Q8H NAYELI Rx#:[id number] Piperacillin-Tazobactam 3 200 .375 gm In Sodium Chloride 0.9% 100 ml @ 25 mls/hr IVPB Q8HR NAYELI Rx# :[id number] Sodium Chloride 0.9% 1, 600 150 000 ml @ 50 mls/hr IV . 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 Eyes: Present: anicteric sclerae, EOMI ENT: Present: hearing grossly normal - Respiratory Details: Respirations are even and unlabored at rest - Cardiovascular Details: Skin is warm and dry, Refill less than 3 seconds - Gastrointestinal General gastrointestinal: Present: soft, tenderness Localized gastrointestinal: tender: RLQ, suprabubic - Neurologic Neurologic: Present: CNII-XII intact - Musculoskeletal Musculoskeletal: Present: generalized weakness, strength equal bilaterally - Psychiatric Psychiatric: Present: A&O x's 3, appropriate affect, intact judgment & insight - Labs CBC & Chem 7: 09/29/19 07:47 09/29/19 07:47 Labs: Abnormal Lab Results - Last 24 Hours (Table) 09/25/19 09/29/19 09/29/19 Range/Units 09:32 07:47 07:47 WBC 2.4 L (3.8-10.6) k/uL RBC 2.57 L (4.30-5.90) m/uL Hgb 7.5 L (13.0-17.5) gm/dL Hct 24.3 L (39.0-53.0) % MCHC 30.7 L (31.0-37.0) g/dL RDW 21.4 H (11.5-15.5) % Plt Count 94 L (150-450) k/uL Lymphocytes # 0.5 L (1.0-4.8) k/uL Potassium 3.4 L (3.5-5.1) mmol/L Chloride 108 H (98-107) mmol/L BUN 30 H (9-20) mg/dL Calcium 7.4 L (8.4-10.2) mg/dL Total Protein 4.5 L (6.3-8.2) g/dL Albumin 2.3 L (3.5-5.0) g/dL Crossmatch See Detail - Imaging and Cardiology CT scan - abdomen: report reviewed CT scan - pelvis: report reviewed Assessment and Plan (1) Abdominal pain, right lower quadrant Narrative/Plan: CT of the abdomen and pelvis f/u study, no free air, pt reports stable/less abd discomfort. Surgery reviewed CT. Diet advanced to clear liquids. Continue on antibiotics and G-CSF for now. This was discussed with him and his . They verbalized understanding. Current Visit: Yes Status: Acute Priority: High Code(s): R10.31 - RIGHT LOWER QUADRANT PAIN SNOMED Code(s): 804254108 (2) Pancytopenia Narrative/Plan: Transfuse to keep patient's hemoglobin greater than 7, today is 7.5 s/p 1 unit. Keep platelet counts greater than 10,000, unless patient is symptomatic, 94,000 today. G-CSF has been initiated for low absolute neutrophil count, cont while inpatient. WBC 2.4 Cancer treatments ok to resume on DC Bone marrow biopsy and aspirate done, pending results. F/U with Dr. Colon next week for results, appt in chart CBC daily while inpatient Outpatient f/u CBC sched for Wednesday if pt gets discharged over the weekend. Current Visit: Yes Status: Acute Priority: High Code(s): D61.818 - OTHER PANCYTOPENIA SNOMED Code(s): 758099339 (3) Breast cancer in male Narrative/Plan: Last evaluated in the office on 09/04/19. No clinical evidence of recurrence of breast cancer. Plan is to continue tamoxifen but, at this time we are going to hold it while inpatient, along with his other treatments for cancer, to see what happens to his blood counts. S/P BM Bx Current Visit: Yes Status: Chronic Priority: Medium Code(s): C50.929 - MALIGNANT NEOPLASM OF UNSP SITE OF UNSPECIFIED MALE BREAST SNOMED Code(s): 874119439 (4) Prostate cancer Narrative/Plan: Patient follows with Urology, Dr. Kelly. Fermin, 250 mg daily held. Continue 5 mg daily of prednisone. Patient is getting Xgeva outpatient, this can be rescheduled when he is discharged. PSA 0. 3. Disease is controlled on current regimen Current Visit: Yes Status: Chronic Priority: Medium Code(s): C61 - MALIGNANT NEOPLASM OF PROSTATE SNOMED Code(s): 583581365 (5) Malignant neoplasm of bladder, unspecified Narrative/Plan: Recent mentioned in the notes of bladder malignancy with plans for resection. WBC/ANC are improving, Surgical consult reviewed, plan for TURBT outpatient. Current Visit: Yes Status: Acute Priority: High Code(s): C67.9 - MALIGNANT NEOPLASM OF BLADDER, UNSPECIFIED SNOMED Code(s): 298635051
[2019-09-29] MEDS: TAMSULOSIN 0.4 MG CAP.ER.24H PO SCH (17:10)
--- NOTE | 2019-09-29 20:15 | P.PN ---
Progress Note - Text Progress Note Date: 09/29/19 Hospital course: This is a 84-year-old patient of Dr. Casarez. Patient had a locally advanced hig h-grade prostate cancer and diffuse osseous metastasis. Also had retroperitoneal adenopathy with right hydronephrosis. He was treated with androgen deprivation therapy and responded very well. PSA came down to less than 1. Subsequently he was noted to have some right renal atrophy. He again had cross immaturity in July 2019 and cystoscopy revealed a 2.5 cm mass of the bladder 4. Suspicious for urothelial carcinoma. He was supposed to have undergone TURP of the tumor but was Admitted with-pneumonia, acute hypoxic respiratory failure, acute COPD exacerbation. UTI with Enterococcus faecalis. Was discharged on September 19. Also workup in place for possible's pancytopenia from androgen deprivation therapy. Now admitted with low blood pressure, lower extremity edema. On September 26 underwent a bone marrow biopsy. On September 27 has significant abdominal pain. Computed tomography scan of the abdomen showed some free air along the cecum. Today-patient and remain nothing by mouth. Abdominal pain is improved. Then again today had more abdominal pain. Repeat computed tomography scan was ordered. at the bedside. No nausea vomiting. No fever. Review of systems: Was done for constitutional, cardiovascular, GI, pulmonary. relevant finding as above Active Medications Calcium Acetate (Phoslo) 667 mg PO BID-W/MEALS [facility] Last Admin: 09/29/19 17:10 Dose: 667 mg Documented by: Cholecalciferol (Vitamin D3 (25 Mcg = 1000 Iu)) 1,000 unit PO BID [facility] Last Admin: 09/29/19 07:57 Dose: 1,000 unit Documented by: Cyanocobalamin (Vitamin B-12) 1,000 mcg PO DAILY [facility] Last Admin: 09/29/19 07:58 Dose: 1,000 mcg Documented by: Filgrastim (Zarxio) 480 mcg SQ DAILY [facility] Last Admin: 09/29/19 09:03 Dose: 480 mcg Documented by: Finasteride (Proscar) 5 mg PO DAILY [facility] Last Admin: 09/29/19 07:57 Dose: 5 mg Documented by: Piperacillin Sod/Tazobactam (Sod 3.375 gm/ Sodium Chloride) 100 mls @ 25 mls/hr IVPB Q8HR [facility] Last Admin: 09/29/19 17:09 Dose: 25 mls/hr Documented by: Lactated Ringer's (Lactated Ringers) 1,000 mls @ 125 mls/hr IV .Q8H [facility] Last Admin: 09/29/19 16:01 Dose: 125 mls/hr Documented by: Naloxone HCl (Narcan) 0.2 mg IV Q2M PRN PRN Reason: Opioid Reversal Tamsulosin HCl (Flomax) 0.8 mg PO W/SUPPER [facility] Last Admin: 09/29/19 17:10 Dose: 0.8 mg Documented by: Physical examination: VITAL SIGNS: 97.9, 69, 16, 109/57, 96% room air GENERAL: Sitting up in a recliner, awake EYES: Pupils equal. Conjunctiva normal. HEENT: External appearance of nose and ears normal, oral cavity grossly normal. NECK: JVD not raised; masses not palpable. HEART: First and second heart sounds are normal; no edema. LUNGS: Respiratory rate better, improved air entry ABDOMEN: Soft, lower abdominal mild tenderness, no guarding or rigidity, liver spleen not palpable, no masses palpable. PSYCH: Alert and oriented x3; mood and affect normal. 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 No free air reported Previous testing: Bun 50 creatinine 1.43 Assessment: -Acute lower abdominal pain. Computed tomography scan showing some free air along the cecum. Repeat computed tomography scan of the abdomen from today. Unremarkable. Could be bladder spasms. -Hypotension from volume loss, POA -Acute kidney injury, prerenal -Acute COPD exacerbation in an ex-smoker, -Acute hypoxic respiratory failure from pneumonia, corrected -History of prostate cancer that was treated with androgen deprivation therapy to which patient responded well -Chronic kidney disease with some atrophy of the right kidney, stage III -Bladder tumor pending resection -essential hypertension -Hyperlipidemia -Pancytopenia, possibly from antiandrogen therapy, rule out MDS,, status post bone marrow [id number] outpatient with Dr. Colon Plan: Follow-up continue with IV Zosyn. IV fluids. Will change to Flomax 0.4 mg twice a day
[2019-09-30] MEDS: PIPERACILLIN-TAZOBACTAM 3.375 GM in SODIUM CHLORIDE 0.9% 100 ML IVPB SCH ×3 (00:42→16:22)
[2019-09-30] MEDS: LACTATED RINGERS 1,000 ML IV SCH ×2 (05:20→08:34)
[2019-09-30] MEDS: CYANOCOBALAMIN 500 MCG TAB PO SCH (08:34)
[2019-09-30] MEDS: TAMSULOSIN 0.4 MG CAP.ER.24H PO SCH ×2 (08:34→21:16)
[2019-09-30] MEDS: CALCIUM ACETATE 667 MG TAB PO SCH ×2 (08:34→17:42)
[2019-09-30] MEDS: CHOLECALCIFEROL 1,000 UNIT TAB PO SCH ×2 (08:34→21:15)
[2019-09-30] MEDS: FINASTERIDE 5 MG TAB PO SCH (08:35)
[2019-09-30] MEDS: FILGRASTIM-SNDZ 480 MCG/0.8 ML SYRINGE SQ SCH (09:03)
--- NOTE | 2019-09-30 14:02 | P.PN ---
Subjective Progress Note Date: 09/30/19 Principal diagnosis: Abdominal pain Patient doing better today. Still having pain near the right pelvic bone region/lower quadrant. No fevers. No labs today. Tolerating regular diet. Objective - Vital Signs Vital signs: Vital Signs Temp 97.6 F 09/30/19 11:00 Pulse 71 09/30/19 11:00 Resp 16 09/30/19 11:00 BP 111/55 09/30/19 11:00 Pulse Ox 91 L 09/30/19 11:00 Intake & Output 09/29/19 09/30/19 09/30/19 18:59 06:59 18:59 Intake Total 2790 Output Total 500 300 Balance -500 2790 -300 Intake: Intake, IV Titration 1600 Amount Lactated Ringers 1,000 ml 1500 @ 125 mls/hr IV .Q8H NAYELI Rx#:[id number] Piperacillin-Tazobactam 3 100 .375 gm In Sodium Chloride 0.9% 100 ml @ 25 mls/hr IVPB Q8HR NAYELI Rx# :[id number] Oral 1190 Output: Urine 500 300 Other: Voiding Method Urinal Urinal Urinal # Voids 1 1 1 # Bowel Movements 1 - Exam Abdomen: Soft, nondistended, mild tenderness near ASIS, no masses or hernia. - Labs CBC & Chem 7: 09/29/19 07:47 09/29/19 07:47 Assessment and Plan (1) Abdominal pain, right lower quadrant Narrative/Plan: Continue diet as tolerated. Clinically improved. CAT scan yesterday shows no evidence of bowel inflammation. We'll sign off. Please call if needed. Current Visit: Yes Status: Acute Priority: High Code(s): R10.31 - RIGHT LOWER QUADRANT PAIN SNOMED Code(s): 013105700
--- NOTE | 2019-09-30 19:22 | P.PN ---
Progress Note - Text Progress Note Date: 09/30/19 Interval history: This is a 84-year-old patient of Dr. Casarez. Patient had a locally advanced hi gh-grade prostate cancer and diffuse osseous metastasis. Also had retroperitoneal adenopathy with right hydronephrosis. He was treated with androgen deprivation therapy and responded very well. PSA came down to less than 1. Subsequently he was noted to have some right renal atrophy. He again had cross immaturity in July 2019 and cystoscopy revealed a 2.5 cm mass of the bladder 4. Suspicious for urothelial carcinoma. He was supposed to have undergone TURP of the tumor but was Admitted with-pneumonia, acute hypoxic respiratory failure, acute COPD exacerbation. UTI with Enterococcus faecalis. Was discharged on September 19. Also workup in place for possible's pancytopenia from androgen deprivation therapy. Now admitted with low blood pressure, lower extremity edema. On September 26 underwent a bone marrow biopsy. On September 27 has significant abdominal pain. Computed tomography scan of the abdomen showed some free air along the cecum. Repeat computed tomography scan did not show any air. Today-feels better. Diet is being advanced. Dose of Flomax was changed to twice a day. Possibility of bladder spasm. Review of systems: Was done for constitutional, cardiovascular, GI, pulmonary. relevant finding as above Active Medications Calcium Acetate (Phoslo) 667 mg PO BID-W/MEALS [facility] Last Admin: 09/30/19 17:42 Dose: 667 mg Documented by: Cholecalciferol (Vitamin D3 (25 Mcg = 1000 Iu)) 1,000 unit PO BID [facility] Last Admin: 09/30/19 08:34 Dose: 1,000 unit Documented by: Cyanocobalamin (Vitamin B-12) 1,000 mcg PO DAILY [facility] Last Admin: 09/30/19 08:34 Dose: 1,000 mcg Documented by: Filgrastim (Zarxio) 480 mcg SQ DAILY [facility] Last Admin: 09/30/19 09:03 Dose: 480 mcg Documented by: Finasteride (Proscar) 5 mg PO DAILY [facility] Last Admin: 09/30/19 08:35 Dose: 5 mg Documented by: Piperacillin Sod/Tazobactam (Sod 3.375 gm/ Sodium Chloride) 100 mls @ 25 mls/hr IVPB Q8HR [facility] Last Admin: 09/30/19 16:22 Dose: 25 mls/hr Documented by: Lactated Ringer's (Lactated Ringers) 1,000 mls @ 125 mls/hr IV .Q8H [facility] Last Admin: 09/30/19 08:34 Dose: 125 mls/hr Documented by: Naloxone HCl (Narcan) 0.2 mg IV Q2M PRN PRN Reason: Opioid Reversal Tamsulosin HCl (Flomax) 0.4 mg PO BID [facility] Last Admin: 09/30/19 08:34 Dose: 0.4 mg Documented by: Physical examination: VITAL SIGNS: 97.6, 71, 16, 101/55, 91% on room air GENERAL: Sitting up in a recliner, comfortable EYES: Pupils equal. Conjunctiva normal. HEENT: External appearance of nose and ears normal, oral cavity grossly normal. NECK: JVD not raised; masses not palpable. HEART: First and second heart sounds are normal; no edema. LUNGS: Respiratory rate better, improved air entry ABDOMEN: Soft, minimal lower abdominal mild tenderness, no guarding or rigidity, liver spleen not palpable, no masses palpable. PSYCH: Alert and oriented x3; mood and affect normal. 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 No free air reported Previous testing: Bun 50 creatinine 1.43 Assessment: -Acute lower abdominal pain. Computed tomography scan showing some free air along the cecum. Repeat computed tomography scan of the abdomen-Unremarkable. Could be bladder spasms. Feeling better today. -Hypotension from volume loss, POA -Acute kidney injury, prerenal -Acute COPD exacerbation in an ex-smoker, -Acute hypoxic respiratory failure from pneumonia, corrected -History of prostate cancer that was treated with androgen deprivation therapy to which patient responded well -Chronic kidney disease with some atrophy of the right kidney, stage III -Bladder tumor pending resection -essential hypertension -Hyperlipidemia -Pancytopenia, possibly from antiandrogen therapy, rule out MDS,, status post bone marrow [id number] outpatient with Dr. Colon Plan: Patient IS much better. No evidence of any major abnormality in the abdomen and the clinical presentation. Doing better with the change dose of Flomax. Surgery is signed off. Patient remains afebrile with no change in white count. Repeat labs in the morning. DC antibiotics.
[2019-10-01 01:33] LABS: Anisocytosis Moderate; Basophils % (A) 1 %; Eosinophils % (A) 0 %; HCT 21.9 % (39.0-53.0); Hypochromasia Marked; Lymphocytes # (A) 0.8 k/uL (1.0-4.8); Lymphocytes % (A) 21 %; MCHC 30.8 g/dL (31.0-37.0); MCV 97.4 fL (80.0-100.0); Macrocytosis Moderate; Mean Platelet Volume 10.9; Monocytes # (A) 0.1 k/uL (0-1.0); Monocytes % (A) 2 %; Neutrophils # (A) 2.9 k/uL (1.3-7.7); Neutrophils % (A) 73 %; Platelet Count 107 k/uL (150-450); Poikilocytosis Slight; RBC 2.24 m/uL (4.30-5.90); RDW 21.3 % (11.5-15.5); WBC 3.9 k/uL (3.8-10.6)
[2019-10-01 01:35] LABS: HGB 6.7 gm/dL (13.0-17.5)
[2019-10-01 04:38] LABS: Anisocytosis Moderate; HCT 22.5 % (39.0-53.0); Hypochromasia Marked; MCH 30.1 pg (25.0-35.0); MCHC 31.1 g/dL (31.0-37.0); MCV 96.9 fL (80.0-100.0); Macrocytosis Moderate; Mean Platelet Volume 10.9; Platelet Count 117 k/uL (150-450); Poikilocytosis Slight; RBC 2.33 m/uL (4.30-5.90); RDW 21.2 % (11.5-15.5); WBC 4.3 k/uL (3.8-10.6)
[2019-10-01 04:49] LABS: Calcium 8.2 mg/dL (8.4-10.2); Potassium 3.6 mmol/L (3.5-5.1)
[2019-10-01] MEDS: TAMSULOSIN 0.4 MG CAP.ER.24H PO SCH (09:03)
[2019-10-01] MEDS: CHOLECALCIFEROL 1,000 UNIT TAB PO SCH (09:03)
[2019-10-01] MEDS: CYANOCOBALAMIN 500 MCG TAB PO SCH (09:03)
[2019-10-01] MEDS: CALCIUM ACETATE 667 MG TAB PO SCH ×2 (09:03→17:55)
[2019-10-01] MEDS: FINASTERIDE 5 MG TAB PO SCH (09:03)
[2019-10-01] MEDS: FILGRASTIM-SNDZ 480 MCG/0.8 ML SYRINGE SQ SCH (09:05)
[2019-10-01 09:22] VITALS: RESP 14
[2019-10-01 14:38] VITALS: BP 114/68; PULSE 72; TEMP 98.9
--- NOTE | 2019-10-01 23:26 | P.DS ---
Providers Date of admission: 09/21/19 15:09 Expected date of discharge: 10/01/19 Attending physician: Julian Garza Consults: 09/21/19 15:12 Consult Physician Routine Consulting Provider: Kerwin Colon Consult Reason/Comments: Pancytopenia Do you want consulting provider notified?: Yes 09/27/19 15:48 Consult Physician Routine Consulting Provider: Warren Kelly Consult Reason/Comments: Abdominal pain, bladder CA Do you want consulting provider notified?: Yes 09/27/19 18:10 Consult Physician Routine Consulting Provider: Osei Burch Consult Reason/Comments: Free air along cecum seen on CT Do you want consulting provider notified?: Yes, Notify in am Primary care physician: Johnny Casarez Hospital Course: Hospital course: This is a 84-year-old patient of Dr. Casarez. 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 Also had retroperitoneal adenopathy with right hydronephrosis. He was treated with androgen deprivation therapy and responded very well. PSA came down to less than 1. Subsequently he was noted to have some right renal atrophy. He again had cross immaturity in July 2019 and cystoscopy revealed a 2.5 cm mass of the bladder 4. Suspicious for urothelial carcinoma. He was supposed to have undergone TURP of the tumor but was Admitted with-pneumonia, acute hypoxic respiratory failure, acute COPD exacerbation. UTI with Enterococcus faecalis. Was discharged on September 19. Also workup in place for possible's pancytopenia from androgen deprivation therapy. Now admitted with low blood pressure, lower extremity edema. On September 26 underwent a bone marrow biopsy. On September 27 has significant abdominal pain. Computed tomography scan of the abdomen showed some free air along the cecum. Repeat computed tomography scan did not show any air.no white count or fever. Tolerating diet. Seen by surgery. Cleared. [place] to be bladder spasms. Status post bone marrow biopsy.patient received 8 units of blood.creatinine came down from 1.46 down to 1.10 Today-feels better. tolerating diet. Abdominal pain well controlled. Care was discussed in detail with the patient. We'll follow up with urology and oncology as an outpatient. Discussion and discharge planning more than 35 minutes consultations: Dr. Colon from oncology Dr. Tabares from general surgery Dr. Kelly from urology Physical examination: VITAL SIGNS: 98.9-72-14-114/68-93% GENERAL: Sitting up in a recliner, comfortable EYES: Pupils equal. Conjunctiva normal. HEENT: External appearance of nose and ears normal, oral cavity grossly normal. NECK: JVD not raised; masses not palpable. HEART: First and second heart sounds are normal; no edema. LUNGS: Respiratory rate better, improved air entry ABDOMEN: Soft, minimal lower abdominal tenderness, no guarding or rigidity, liver spleen not palpable, no masses palpable. PSYCH: Alert and oriented x3; mood and affect normal. 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 No free air reported Previous testing: Bun 50 creatinine 1.43 Assessment: -Acute lower abdominal pain. . Could be bladder spasms. -Symptomatic anemia, likely from combination of chronic kidney disease and pancytopenia, requiring 8 units of blood transfusion -Hypotension from volume loss, POA -Acute kidney injury, prerenal -Acute COPD exacerbation in an ex-smoker, -Acute hypoxic respiratory failure from pneumonia, corrected -History of prostate cancer that was treated with androgen deprivation therapy to which patient responded well -Chronic kidney disease with some atrophy of the right kidney, stage III -Bladder tumor pending resection -essential hypertension -Hyperlipidemia -Pancytopenia, possibly from antiandrogen therapy, rule out MDS,, status post bone marrow [id number] outpatient with Dr. Colon disposition: Home Plan - Discharge Summary Discharge Rx Participant: No New Discharge Prescriptions: New Cyanocobalamin [Vitamin B-12] 1,000 mcg PO DAILY #30 tab Cholecalciferol [Vitamin D3 (25 Mcg = 1000 Iu)] 1,000 unit PO BID #60 tab Calcium Acetate [PhosLo] 667 mg PO BID-W/MEALS #60 tab Finasteride [Proscar] 5 mg PO DAILY #30 tab Continue predniSONE 5 mg PO DAILY Abiraterone Acetate [Zytiga] 250 mg PO DAILY Xgeva 120mg/1.7ml Subcutaneous 1.7 ml SQ Q90D Tamoxifen Citrate 20 mg PO W/SUPPER Changed Tamsulosin HCl [Flomax] 0.8 mg PO BID #0 Discontinued Irbesartan 300 mg PO W/SUPPER Discharge Medication List Abiraterone Acetate [Zytiga] 250 mg PO DAILY 02/07/19 [History] predniSONE 5 mg PO DAILY 02/07/19 [History] Tamoxifen Citrate 20 mg PO W/SUPPER 09/15/19 [History] Xgeva 120mg/1.7ml Subcutaneous 1.7 ml SQ Q90D 09/15/19 [History] Calcium Acetate [PhosLo] 667 mg PO BID-W/MEALS #60 tab 09/27/19 [Rx] Cholecalciferol [Vitamin D3 (25 Mcg = 1000 Iu)] 1,000 unit PO BID #60 tab 09/27/19 [Rx] Cyanocobalamin [Vitamin B-12] 1,000 mcg PO DAILY #30 tab 09/27/19 [Rx] Finasteride [Proscar] 5 mg PO DAILY #30 tab 10/01/19 [Rx] Tamsulosin HCl [Flomax] 0.8 mg PO BID #0 10/01/19 [Rx] Follow up Appointment(s)/Referral(s): Kerwin Colon MD [STAFF PHYSICIAN] - 10/05/19 1:15 pm Yumiko Nicole NPC [Nurse Practitioner] - 10/02/19 11:00 am (This if for CBC) Johnny Casarez MD [Primary Care Provider] - 1-2 days (Patient to make own follow-up appt. Office closed at time of discharge. ) Clinton Garber MD [STAFF PHYSICIAN] - 10 Days (Patient to make own follow-up appt. Office closed at time of discharge. ) Patient Instructions/Handouts: Finasteride (By mouth), Calcium Acetate (By mouth), Vitamin B-12 (By mouth), Cholecalciferol (By mouth), Erythema Infectiosum (DC), Anemia (DC), Fall Prevention (DC) Activity/Diet/Wound Care/Special Instructions: Bloodwork - CBC/CMP in 3 days
== END 2019-10-01 19:29 | disposition home or self-care (01) | DRG 808 ==
LOC: EC 11:53 → 5NMEDONC 15:09
PROVIDERS: ADMIT Hospitalist; ATTEND Hospitalist
PROC: 30233N1 Transfusion of Nonautologous Red Blood Cells into Peripheral Vein, Percutaneous Approach (ICD-10-PCS; principal; 2019-09-21)
PROC: 07DR3ZX Extraction of Iliac Bone Marrow, Percutaneous Approach, Diagnostic (ICD-10-PCS; 2019-09-26)
DX: D61.818 Other pancytopenia (principal); J96.01 Acute respiratory failure with hypoxia; J15.6 Pneumonia due to other Gram-negative bacteria; J44.1 Chronic obstructive pulmonary disease with (acute) exacerbation; J44.0 Chronic obstructive pulmonary disease with (acute) lower respiratory infection; N17.9 Acute kidney failure, unspecified; C79.51 Secondary malignant neoplasm of bone; K92.1 Melena; K56.7 Ileus, unspecified; D63.1 Anemia in chronic kidney disease; N18.3 Chronic kidney disease, stage 3 (moderate); I12.9 Hypertensive chronic kidney disease with stage 1 through stage 4 chronic kidney disease, or unspecified chronic kidney disease; C67.9 Malignant neoplasm of bladder, unspecified; C61 Malignant neoplasm of prostate; C50.921 Malignant neoplasm of unspecified site of right male breast; I95.9 Hypotension, unspecified; F41.9 Anxiety disorder, unspecified; E78.5 Hyperlipidemia, unspecified; R33.9 Retention of urine, unspecified; R59.0 Localized enlarged lymph nodes; N32.89 Other specified disorders of bladder; D46.9 Myelodysplastic syndrome, unspecified; T44.8X5A Adverse effect of centrally-acting and adrenergic-neuron-blocking agents, initial encounter; Z79.52 Long term (current) use of systemic steroids; Z79.899 Other long term (current) drug therapy; Z79.810 Long term (current) use of selective estrogen receptor modulators (SERMs); Z87.440 Personal history of urinary (tract) infections; Z87.891 Personal history of nicotine dependence; Z90.11 Acquired absence of right breast and nipple; Z90.81 Acquired absence of spleen; Z98.890 Other specified postprocedural states; Z17.0 Estrogen receptor positive status [ER+]; Z90.49 Acquired absence of other specified parts of digestive tract; Z80.42 Family history of malignant neoplasm of prostate; Z80.0 Family history of malignant neoplasm of digestive organs; Z80.3 Family history of malignant neoplasm of breast
CPT/HCPCS: 36415; 36430; 38222; 71045; 71046; 74176; 74177; 80048; 80053; 81001; 82150; 82607; 82728; 82747; 83540; 83550; 83605; 83690; 83735; 83880; 83883; 83921; 84153; 84165; 85025; 85027; 85045; 85610; 85730; 86334; 86747; 86850; 86900; 86901; 86920; 87040; 87086; 87324; 87502; 93005; 94640; 96365; 96374; 99291

== ENCOUNTER 2020-02-05 22:43 | Inpatient (IN) | payer MEDICARE ==
--- NOTE | 2020-02-05 23:15 | ED ---
General Adult HPI - General Chief complaint: Recheck/Abnormal Lab/Rx Stated complaint: Abn Labs Time Seen by Provider: 02/05/20 23:11 Source: patient, family Mode of arrival: wheelchair Limitations: no limitations - History of Present Illness Initial comments: This patient is an 84-year-old man who presents to the hospital after he was phoned tonight about abnormal lab values. The patient states that he went to see Dr. Casarez regarding feeling of generalized fatigue and weakness that is been going on 2-3 weeks. He states that he had labs drawn in the afternoon. He received a call around 10 PM that his white blood cell count was elevated and that he should be seen in emergency department. The patient denies specific symptoms of infection. He denies fever or chills. He has not had congestion cough or dyspnea. No chest pain or abdominal pain. No nausea or vomiting. No diarrhea. Patient states that he has some constipation that has been chronic. Patient states that he is not having dysuria or frequency however urine is darker than usual. Onset/Timin -: week(s) Severity scale (1-10): 0 Improves with: none Worsens with: none Associated Symptoms: weakness, other (Fatigue) Treatments Prior to Arrival: none - Related Data Home Medications Medication Instructions Recorded Confirmed Abiraterone Acetate [Zytiga] 1,000 mg PO DAILY 02/07/19 02/06/20 predniSONE 5 mg PO DAILY 02/07/19 02/06/20 Tamoxifen Citrate 20 mg PO W/SUPPER 09/15/19 02/06/20 Xgeva 120mg/1.7ml Subcutaneous 1.7 ml SQ Q90D 09/15/19 02/06/20 Ascorbic Acid [Vitamin C] 500 mg PO W/SUPPER 02/06/20 02/06/20 Calcium Carbonate [Calcium] 600 mg PO DAILY 02/06/20 02/06/20 Cholecalciferol [Vitamin D3 (25 2,000 unit PO DAILY 02/06/20 02/06/20 Mcg = 1000 Iu)] Ciclopirox Olamine [Loprox 0.77% 1 applic TOPICAL DAILY 02/06/20 02/06/20 cream] Ferrous Sulfate [Feosol] 325 mg PO W/SUPPER 02/06/20 02/06/20 Lactulose [Cephulac] 10 gram PO BID PRN 02/06/20 02/06/20 Previous Rx's Medication Instructions Recorded Cyanocobalamin [Vitamin B-12] 1,000 mcg PO DAILY #30 tab 09/27/19 Tamsulosin HCl [Flomax] 0.8 mg PO BID #0 10/01/19 Allergies Allergy/AdvReac Type Severity Reaction Status Date / Time No Known Allergies Allergy Verified 02/06/20 09:07 Review of Systems ROS Statement: Those systems with pertinent positive or pertinent negative responses have been documented in the HPI. ROS Other: All systems not noted in ROS Statement are negative. Constitutional: Reports: weakness (Generalized). Denies: fever, chills Eyes: Denies: eye pain, vision change ENT: Denies: throat pain, congestion Respiratory: Denies: cough, dyspnea Cardiovascular: Denies: chest pain, palpitations, orthopnea, edema Endocrine: Reports: fatigue Gastrointestinal: Reports: constipation. Denies: abdominal pain, nausea, vomiting, diarrhea Genitourinary: Denies: dysuria, frequency, hematuria Musculoskeletal: Denies: arthralgia Skin: Denies: rash Neurological: Denies: headache, weakness, numbness, paresthesias Past Medical History Past Medical History: Cancer, Hyperlipidemia, Hypertension Additional Past Medical History / Comment(s): hx prostate cancer pt states currently in remission, rt breast cancer recent mammogram "clean", anemia, recent infection lower rt leg tx with antibiotics. bladder mass History of Any Multi-Drug Resistant Organisms: None Reported Past Surgical History: Appendectomy, Breast Surgery, Orthopedic Surgery Additional Past Surgical History / Comment(s): colonoscopy, rt breast mastectomy, arthroscopic knee surgery, splenectomy, bladder surgery to remove mass Past Anesthesia/Blood Transfusion Reactions: No Reported Reaction Past Psychological History: Anxiety Smoking Status: Former smoker Past Alcohol Use History: None Reported Past Drug Use History: None Reported - Past Family History Father Family Medical History: Cancer Additional Family Medical History / Comment(s): prostate Sister(s) Family Medical History: Cancer Additional Family Medical History / Comment(s): breast Brother(s) Family Medical History: Cancer Additional Family Medical History / Comment(s): colon cancer Mother Family Medical History: No Reported History Additional Family Medical History / Comment(s): Mother lived to be 98yrs old. General Exam Limitations: no limitations General appearance: alert, in no apparent distress Head exam: Present: atraumatic, normocephalic Eye exam: Present: normal appearance. Absent: scleral icterus, conjunctival injection Neck exam: Present: normal inspection, full ROM. Absent: meningismus Respiratory exam: Present: normal lung sounds bilaterally. Absent: respiratory distress, wheezes, rales, rhonchi, stridor Cardiovascular Exam: Present: regular rate, normal rhythm, normal heart sounds. Absent: systolic murmur, diastolic murmur, rubs, gallop GI/Abdominal exam: Present: soft, hernia (Umbilical hernia without tenderness). Absent: distended, tenderness, guarding, rebound, rigid, mass Extremities exam: Present: normal inspection, normal capillary refill. Absent: pedal edema, calf tenderness Back exam: Present: normal inspection. Absent: CVA tenderness (R), CVA tenderness (L) Neurological exam: Present: alert Skin exam: Present: warm, dry, intact, normal color. Absent: rash, cyanosis, diaphoretic, erythema, petechiae, pallor, mottled Course Vital Signs 02/05/20 02/05/20 02/06/20 22:47 23:19 00:28 Temperature 98.6 F 99.0 F Pulse Rate 107 H 97 Pulse Rate [ Right] Respiratory 18 20 Rate Blood Pressure 107/69 115/70 Blood Pressure [Right Arm] O2 Sat by Pulse 87 L 98 Oximetry 02/06/20 02/06/20 02/06/20 00:50 01:37 02:00 Temperature 101.3 F H 98.5 F Pulse Rate 98 Pulse Rate [ Right] Respiratory 20 Rate Blood Pressure 112/68 Blood Pressure [Right Arm] O2 Sat by Pulse 97 Oximetry 02/06/20 02/06/20 02/06/20 06:30 08:53 13:14 Temperature 98.7 F 98.3 F 98.2 F Pulse Rate Pulse Rate [ 94 Right] Respiratory 20 Rate Blood Pressure Blood Pressure 127/75 [Right Arm] O2 Sat by Pulse 94 L Oximetry EKG Findings - EKG Results: EKG: interpreted by MINDA, sinus rhythm EKG shows: tachycardia (Rate 102 BPM) - Blocks, [place], Hypertrophy, ST Abn: AV and intraventricular conduction: left anterior fascicular block Medical Decision Making - Lab Data Result diagrams: 02/05/20 23:21 02/07/20 06:56 Lab Results 02/05/20 02/05/20 02/05/20 Range/Units 23:21 23:21 23:21 WBC 76.0 H* (3.8-10.6) k/uL RBC 3.84 L (4.30-5.90) m/uL Hgb 11.1 L (13.0-17.5) gm/dL Hct 33.3 L (39.0-53.0) % MCV 86.8 (80.0-100.0) fL MCH 28.8 (25.0-35.0) pg MCHC 33.2 (31.0-37.0) g/dL RDW 14.5 (11.5-15.5) % Plt Count 64 L (150-450) k/uL Neutrophils % Not Reportable Neutrophils % (Manual) 6 % Band Neutrophils % 1 % Lymphocytes % Not Reportable Lymphocytes % (Manual) 16 % Monocytes % Not Reportable Monocytes % (Manual) 36 % Eosinophils % Not Reportable Basophils % Not Reportable Myelocytes % 1 % Promyelocytes % 1 % Blast Cells % 41 H* % Neutrophils # Not Reportable Neutrophils # (Manual) 5.30 (1.3-7.7) k/uL Lymphocytes # Not Reportable Lymphocytes # (Manual) 12.16 H (1.0-4.8) k/uL Monocytes # Not Reportable Monocytes # (Manual) 27.36 H (0-1.0) k/uL Eosinophils # Not Reportable Basophils # Not Reportable Myelocytes # (Manual) 0.76 H (0) k/uL Promyelocytes # (Man) 0.76 H (0) k/uL Blast Cells # (Man) 31.16 H (0) k/uL Nucleated RBCs 1 H (0-0) /100 WBC Manual Slide Review Performed Pathologist Review See comment A Poikilocytosis (manual Present Anisocytosis (manual) Present Target Cells Present Stomatocytes Present PT 12.4 H (9.0-12.0) sec INR 1.2 H (<1.2) APTT 23.9 (22.0-30.0) sec Sodium 133 L (137-145) mmol/L Potassium 3.7 (3.5-5.1) mmol/L Chloride 97 L (98-107) mmol/L Carbon Dioxide 32 H (22-30) mmol/L Anion Gap 4 mmol/L BUN 24 H (9-20) mg/dL Creatinine 1.28 H (0.66-1.25) mg/dL Est GFR (CKD-EPI)AfAm 60 (>60 ml/min/1.73 sqM) Est GFR (CKD-EPI)NonAf 52 (>60 ml/min/1.73 sqM) Glucose 126 H (74-99) mg/dL Plasma Lactic Acid Ort[place] (0.7-2.0) mmol/L Calcium 10.5 H (8.4-10.2) mg/dL Total Bilirubin 0.8 (0.2-1.3) mg/dL AST 59 (17-59) U/L ALT 27 (4-49) U/L Alkaline Phosphatase 753 H (38-126) U/L Total Protein 5.4 L (6.3-8.2) g/dL Albumin 2.8 L (3.5-5.0) g/dL Urine Color Urine Appearance (Clear) Urine pH (5.0-8.0) Ur Specific [place] (1.001-1.035) Urine Protein (Negative) Urine Glucose (UA) (Negative) Urine Ketones (Negative) Urine Blood (Negative) Urine Nitrite (Negative) Urine Bilirubin (Negative) Urine Urobilinogen (<2.0) mg/dL Ur Leukocyte Esterase (Negative) Urine RBC (0-5) /hpf Urine WBC (0-5) /hpf Ur Squamous Epith Cells (0-4) /hpf Urine Bacteria (None) /hpf Granular Casts (0) /lpf Urine Mucus (None) /hpf 02/05/20 02/06/20 Range/Units 23:21 00:40 WBC (3.8-10.6) k/uL RBC (4.30-5.90) m/uL Hgb (13.0-17.5) gm/dL Hct (39.0-53.0) % MCV (80.0-100.0) fL MCH (25.0-35.0) pg MCHC (31.0-37.0) g/dL RDW (11.5-15.5) % Plt Count (150-450) k/uL Neutrophils % Neutrophils % (Manual) % Band Neutrophils % % Lymphocytes % Lymphocytes % (Manual) % Monocytes % Monocytes % (Manual) % Eosinophils % Basophils % Myelocytes % % Promyelocytes % % Blast Cells % % Neutrophils # Neutrophils # (Manual) (1.3-7.7) k/uL Lymphocytes # Lymphocytes # (Manual) (1.0-4.8) k/uL Monocytes # Monocytes # (Manual) (0-1.0) k/uL Eosinophils # Basophils # Myelocytes # (Manual) (0) k/uL Promyelocytes # (Man) (0) k/uL Blast Cells # (Man) (0) k/uL Nucleated RBCs (0-0) /100 WBC Manual Slide Review Pathologist Review Poikilocytosis (manual Anisocytosis (manual) Target Cells Stomatocytes PT (9.0-12.0) sec INR (<1.2) APTT (22.0-30.0) sec Sodium (137-145) mmol/L Potassium (3.5-5.1) mmol/L Chloride (98-107) mmol/L Carbon Dioxide (22-30) mmol/L Anion Gap mmol/L BUN (9-20) mg/dL Creatinine (0.66-1.25) mg/dL Est GFR (CKD-EPI)AfAm (>60 ml/min/1.73 sqM) Est GFR (CKD-EPI)NonAf (>60 ml/min/1.73 sqM) Glucose (74-99) mg/dL Plasma Lactic Acid [place] 1.4 (0.7-2.0) mmol/L Calcium (8.4-10.2) mg/dL Total Bilirubin (0.2-1.3) mg/dL AST (17-59) U/L ALT (4-49) U/L Alkaline Phosphatase (38-126) U/L Total Protein (6.3-8.2) g/dL Albumin (3.5-5.0) g/dL Urine Color Yellow Urine Appearance Cloudy (Clear) Urine pH 5.5 (5.0-8.0) Ur Specific [place] 1.021 (1.001-1.035) Urine Protein 1+ H (Negative) Urine Glucose (UA) Negative (Negative) Urine Ketones Negative (Negative) Urine Blood Small H (Negative) Urine Nitrite Negative (Negative) Urine Bilirubin Negative (Negative) Urine Urobilinogen <2.0 (<2.0) mg/dL Ur Leukocyte Esterase Negative (Negative) Urine RBC 28 H (0-5) /hpf Urine WBC 4 (0-5) /hpf Ur Squamous Epith Cells 1 (0-4) /hpf Urine Bacteria Rare H (None) /hpf Granular Casts 5 (0) /lpf Urine Mucus Rare H (None) /hpf Disposition Clinical Impression: Leukocytosis Disposition: ADMITTED IP TO THIS HOSP Condition: Serious Is patient prescribed a controlled substance at d/c from ED?: No
--- NOTE | 2020-02-05 23:54 | XR ---
EXAMINATION TYPE: XR chest 1V portable DATE OF EXAM: 02/05/2020 COMPARISON: 09/26/2019 HISTORY: Fever TECHNIQUE: FINDINGS: There is some mild linear density in the lower lung leo. There is slight blunting left c ostophrenic angle. There is no heart failure. Heart size is normal. There are chest leads. IMPRESSION: Mild subsegmental atelectasis and pleural fluid improved in the left lower lobe compared to old exam. No heart failure seen.
[2020-02-05 23:55] LABS: Albumin 2.8 g/dL (3.5-5.0); Calcium 10.5 mg/dL (8.4-10.2); Potassium 3.7 mmol/L (3.5-5.1); Total Bilirubin 0.8 mg/dL (0.2-1.3); Total Protein 5.4 g/dL (6.3-8.2)
[2020-02-05 23:58] LABS: HCT 33.3 % (39.0-53.0); HGB 11.1 gm/dL (13.0-17.5); MCH 28.8 pg (25.0-35.0); MCHC 33.2 g/dL (31.0-37.0); MCV 86.8 fL (80.0-100.0); Mean Platelet Volume 10.8; Platelet Count 64 k/uL (150-450); RBC 3.84 m/uL (4.30-5.90); RDW 14.5 % (11.5-15.5)
[2020-02-05 23:59] LABS: INR 1.2 (<1.2); Partial Thromboplastin Time 23.9 sec (22.0-30.0); Prothrombin Time 12.4 sec (9.0-12.0)
[2020-02-06] MEDS ORDERED: VANCOMYCIN IV PER PHARMACY 1 EACH MISC MISCELLANE PRN ×2 (00:24→19:21)
[2020-02-06] MEDS ORDERED: VANCOMYCIN 1,500 MG in SODIUM CHLORIDE 0.9% 250 ML IVPB STA (00:33)
[2020-02-06 01:29] LABS: Total Cells Counted 200
[2020-02-06 01:32] LABS: Stomatocytes Present; Target Cells Present
[2020-02-06 01:35] LABS: Appearance,Urine Cloudy (Clear); Bacteria,Urine Rare /hpf; Bilirubin,Urine Negative (Negative); Blood,Urine Small (Negative); Color,Urine Yellow; Glucose,Urine (UA) Negative (Negative); Granular Casts,Urine 5 /lpf (0); Ketones,Urine Negative (Negative); Leukocyte Esterase,Urine Negative (Negative); Mucus,Urine Rare /hpf; Nitrite,Urine Negative (Negative); PH, Urine 5.5 (5.0-8.0); Protein,Urine 1+ (Negative); RBC,Urine 28 /hpf (0-5); Specific Gravity,Urine 1.021 (1.001-1.035); Squamous Epithelial Cell,Urine 1 /hpf (0-4); Urobilinogen,Urine <2.0 mg/dL (<2.0); WBC,Urine 4 /hpf (0-5)
[2020-02-06] MEDS ORDERED: ONDANSETRON 4 MG/2 ML VIAL IVP PRN (03:05)
[2020-02-06] MEDS ORDERED: NALOXONE 0.4 MG/ML 1 ML VIAL IV PRN (03:05)
[2020-02-06] MEDS ORDERED: DENOSUMAB 120 MG/1.7 ML SQ SCH (03:15)
[2020-02-06] MEDS ORDERED: SODIUM CHLORIDE 0.9% 1,000 ML IV SCH ×2 (03:15→14:30)
[2020-02-06 08:33] LABS: Band Neutrophils % 1 %; Blast Cells # (M) 31.16 k/uL (0); Lymphocytes # (M) 12.16 k/uL (1.0-4.8); Myelocytes # (M) 0.76 k/uL (0); Myelocytes % 1 %; Neutrophils % (M) 6 %; Nucleated Red Blood Cells 1 /100 WBC (0-0); Promyelocytes # (M) 0.76 k/uL (0); Promyelocytes % 1 %
[2020-02-06 08:35] LABS: Anisocytosis (M) Present; Poikilocytosis (M) Present
[2020-02-06] MEDS: CYANOCOBALAMIN 500 MCG TAB PO SCH (08:59)
[2020-02-06] MEDS: CALCIUM ACETATE 667 MG TAB PO SCH ×2 (08:59→18:05)
[2020-02-06] MEDS: TAMSULOSIN 0.4 MG CAP.ER.24H PO SCH ×2 (08:59→20:41)
[2020-02-06] MEDS: predniSONE 5 MG TAB PO SCH (08:59)
[2020-02-06] MEDS: FINASTERIDE 5 MG TAB PO SCH (08:59)
[2020-02-06] MEDS: CHOLECALCIFEROL 1,000 UNIT TAB PO SCH ×2 (08:59→20:42)
[2020-02-06] MEDS: Abiraterone Acetate [Zytiga] PO SCH ×2 (09:07→10:55)
[2020-02-06] MEDS: ACETAMINOPHEN TAB 325 MG TAB PO PRN (12:01)
[2020-02-06 14:40] LABS: Magnesium 2.1 mg/dL (1.6-2.3); Uric Acid 11.7 mg/dL (3.5-8.5)
[2020-02-06 15:03] LABS: Monocytes # (M) 27.36 k/uL (0-1.0)
[2020-02-06] MEDS ORDERED: RASBURICASE 6 MG in SODIUM CHLORIDE 0.9% 46 ML IV STA (16:32)
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
[2020-02-06] MEDS ORDERED: TAMOXIFEN 10 MG TAB PO SCH (17:30)
[2020-02-06] MEDS: HYDROXYUREA 500 MG CAP PO SCH (18:06)
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
[2020-02-06] MEDS: VANCOMYCIN 1,500 MG in SODIUM CHLORIDE 0.9% 250 ML IVPB SCH (19:36)
[2020-02-06] MEDS: SODIUM CHLORIDE 0.9% 1,000 ML IV SCH (19:39)
[2020-02-06] MEDS: CEFEPIME 1 GM in SODIUM CHLORIDE 0.9% 50 ML IVPB SCH ×2 (21:53→22:27)
[2020-02-07] MEDS: SODIUM CHLORIDE 0.9% 1,000 ML IV SCH ×3 (04:26→20:42)
[2020-02-07] MEDS ORDERED: LACTATED RINGERS 1,000 ML IV SCH (06:00)
[2020-02-07] MEDS ORDERED: HYDROmorphone 0.5 MG/0.5 ML SYRINGE IVP PRN (06:00)
[2020-02-07] MEDS: CYANOCOBALAMIN 500 MCG TAB PO SCH (07:40)
[2020-02-07] MEDS: CHOLECALCIFEROL 1,000 UNIT TAB PO SCH ×2 (07:40→21:54)
[2020-02-07] MEDS: TAMSULOSIN 0.4 MG CAP.ER.24H PO SCH ×2 (07:41→21:54)
[2020-02-07] MEDS: predniSONE 5 MG TAB PO SCH (07:42)
[2020-02-07] MEDS: CEFEPIME 1 GM in SODIUM CHLORIDE 0.9% 50 ML IVPB SCH ×2 (07:43→21:56)
[2020-02-07] MEDS: FINASTERIDE 5 MG TAB PO SCH (07:43)
[2020-02-07] MEDS: CALCIUM ACETATE 667 MG TAB PO SCH ×2 (07:43→18:03)
[2020-02-07 08:01] LABS: Phosphorus 1.5 mg/dL (2.5-4.5); Uric Acid 6.5 mg/dL (3.5-8.5)
[2020-02-07 09:52] LABS: Albumin 2.4 g/dL (3.5-5.0); Calcium 10.4 mg/dL (8.4-10.2); Potassium 3.6 mmol/L (3.5-5.1); Total Bilirubin 0.7 mg/dL (0.2-1.3); Total Protein 4.8 g/dL (6.3-8.2)
[2020-02-07 10:21] VITALS: BMI 29.7
[2020-02-07 10:23] LABS: HCT 31.3 % (39.0-53.0); Hypochromasia Moderate; MCH 26.8 pg (25.0-35.0); MCHC 30.1 g/dL (31.0-37.0); RBC 3.51 m/uL (4.30-5.90); RDW 15.2 % (11.5-15.5)
[2020-02-07 10:33] LABS: Platelet Count 42 k/uL (150-450)
[2020-02-07] MEDS: VANCOMYCIN 1,500 MG in SODIUM CHLORIDE 0.9% 250 ML IVPB SCH (10:58)
[2020-02-07 11:51] LABS: Band Neutrophils % 1 %; Lymphocytes # (M) 5.17 k/uL (1.0-4.8); Monocytes # (M) 2.87 k/uL (0-1.0); Neutrophils % (M) 2 %; Nucleated Red Blood Cells 1 /100 WBC (0-0); Plasma Cells # (M) 9.76 k/uL (0); Total Cells Counted 200; WBC 57.4 k/uL (3.8-10.6)
[2020-02-07 11:54] LABS: Blast Cells # (M) 48.22 k/uL (0)
[2020-02-07 11:55] LABS: Poikilocytosis (M) Present
[2020-02-07 11:57] LABS: HGB 9.4 gm/dL (13.0-17.5)
[2020-02-07] MEDS ORDERED: LIDOCAINE 1% INJ 10MG/ML (20 ML MDV) ONE (12:36)
[2020-02-07] MEDS ORDERED: PHENYLEPHRINE-0.9% NACL SYG 1 MG/10 ML SYRINGE ONE (12:36)
[2020-02-07] MEDS ORDERED: PROPOFOL 10 MG/ML 20 ML VIAL IV ONE (12:36)
[2020-02-07] MEDS ORDERED: IV FLUID CONTINUATION 1,000 ML IV ONE (12:36)
[2020-02-07] MEDS ORDERED: LIDOCAINE 2% INJ 20 MG/ML SQ ONE ×2 (12:38→12:43)
--- NOTE | 2020-02-07 13:03 | P.PCN ---
Date of Procedure: 02/07/20 Preoperative Diagnosis: New onset marked leukocytosis with anemia, leukopenia. Suspected acute leukemia Postoperative Diagnosis: Same Procedure(s) Performed: Bone marrow aspiration and biopsy Anesthesia: MAC Surgeon: Kerwin [employer]: Stated None Estimated Blood Loss (ml): 2 Pathology: other Condition: stable Disposition: floor Indications for Procedure: New onset of marked leukocytosis, weakness, and decreased RBC and platelets. Blasts on peripheral smear. Suspected acute leukemia Operative Findings: Adequate samples Description of Procedure: The procedure was explained in detail to the patient on the floor. Informed consent was obtained. He was then brought to the outpatient endoscopy suite and placed in left lateral decubitus position. Area over both posterior iliac crest was cleaned and prepped with chlorhexidine and sterile draping. IV sedation is initiated. Local anesthesia was administered with lidocaine in the right posterior iliac crest. A Jamshidi needle was then inserted and bone marrow aspirate and biopsy obtained. On withdrawal of the needle hemostasis was easily achieved. Loss was minimal and recovery from sedation was resected. He appeared to have tolerated the procedure well without any obvious immediate complications
[2020-02-07 14:23] LABS: Reticulocyte % 0.4 % (0.5-2.0)
[2020-02-07] MEDS: HYDROXYUREA 500 MG CAP PO SCH (15:03)
--- NOTE | 2020-02-07 20:08 | P.PN ---
Progress Note - Text Progress Note Date: 02/07/20 Chief Complaint: Abnormal blood cells History of presenting complaint: This is a 84-year-old patient of Dr. Casarez. 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 Also had retroperitoneal adenopathy with right hydronephrosis. He was treated with androgen deprivation therapy and responded very well. PSA came down to less than 1. Subsequently he was noted to have some right renal atrophy. He again had cross immaturity in July 2019 and cystoscopy revealed a 2.5 cm mass of the bladder 4. Suspicious for urothelial carcinoma. He was supposed to have undergone TURP of the tumor but was Admitted with-pneumonia, acute hypoxic respiratory failure, acute COPD exacerbation. UTI with Enterococcus faecalis. Was discharged on September 19. Also workup in place for possible's pancytopenia from androgen deprivation therapy. On September 18 and underwent bone marrow biopsy. 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 Patient is put on tamoxifen and'sZytiga. 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 With intravesicular mitomycin. His follow-up visit his oncologist on January 15 was stable. Patient was now feeling last to 3 weeks weak tired rundown. Decreased appetite no fever no chills went to see his family doctor Dr. Casarez. Blood was drawn. He got a call last night that his white count was greatly elevated go down to the ER. Hematology was consulted. Patient was empirically given ceftriaxone and vancomycin the ER. So the patient this morning in the ER. at the bedside. Patient feels rather weak tired and exhausted. Patient did spike a fever in the ER Admitted with MDS with blast transformation and septic picture. Empirically put on vancomycin and cefepime. Also patient encephalopathic. Today-tired. Able to answer questions better. Saw the patient this morning. Due to go for a bone marrow aspiration this afternoon. Review of systems: Was done for constitutional, cardiovascular, GI, pulmonary. relevant finding as above Active Medications Acetaminophen (Tylenol Tab) 650 mg PO Q6HR PRN PRN Reason: Fever and/ or Pain Last Admin: 02/06/20 12:01 Dose: 650 mg Documented by: Calcium Acetate (Phoslo) 667 mg PO BID-W/MEALS NAYELI Last Admin: 02/07/20 18:03 Dose: 667 mg Documented by: Cholecalciferol (Vitamin D3 (25 Mcg = 1000 Iu)) 1,000 unit PO BID [facility] Last Admin: 02/07/20 07:40 Dose: Not Given Documented by: Cyanocobalamin (Vitamin B-12) 1,000 mcg PO DAILY [facility] Last Admin: 02/07/20 07:40 Dose: Not Given Documented by: Finasteride (Proscar) 5 mg PO DAILY [facility] Last Admin: 02/07/20 07:43 Dose: 5 mg Documented by: Hydroxyurea (Hydrea) 500 mg PO DAILY [facility] Last Admin: 02/07/20 15:03 Dose: Not Given Documented by: Vancomycin HCl 1,500 mg/ (Sodium Chloride) 250 mls @ 125 mls/hr IVPB Q16H [facility] Last Admin: 02/07/20 10:58 Dose: 125 mls/hr Documented by: Sodium Chloride (Saline 0.9%) 1,000 mls @ 130 mls/hr IV .Q7H42M [facility] Last Admin: 02/07/20 15:14 Dose: 130 mls/hr Documented by: Cefepime HCl 1 gm/ Sodium (Chloride) 50 mls @ 100 mls/hr IVPB Q12HR [facility] Last Admin: 02/07/20 07:43 Dose: 100 mls/hr Documented by: Miscellaneous Information (Vancomycin Trough Due) 0 each MISCELLANE DIRECTED ONE Stop: 02/08/20 16:01 Naloxone HCl (Narcan) 0.2 mg IV Q2M PRN PRN Reason: Opioid Reversal Ondansetron HCl (Zofran) 4 mg IVP Q8HR PRN PRN Reason: Nausea And Vomiting Prednisone () 5 mg PO DAILY [facility] Last Admin: 02/07/20 07:42 Dose: Not Given Documented by: Tamsulosin HCl (Flomax) 0.8 mg PO BID [facility] Last Admin: 02/07/20 07:41 Dose: Not Given Documented by: Physical examination: VITAL SIGNS: Afebrile, 99, 16, 107/67, 95% on 4 L GENERAL: Laying in bed, but more awake today EYES: Pupils equal. Conjunctiva pale HEENT: External appearance of nose and ears normal, oral cavity grossly normal. NECK: JVD not raised; masses not palpable. HEART: First and second heart sounds are normal; no edema. LUNGS: Respiratory rate normal, diminished breath sounds ABDOMEN: Soft, minimal lower abdominal tenderness, no guarding or rigidity, liver spleen not palpable, no masses palpable. 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 INVESTIGATIONS, reviewed in the clinical context: White count 57.4 hemoglobin 9.4 platelets 42 potassium 3.6 bun 31 creatinine 1.59 calcium 10.4 phosphorus 1.5 albumin 2.4 alk phos 556 Previous testing White count 76 hemoglobin 11.1 platelets 64 blast cells 41% potassium 3.7 bun 24 creatinine 1.28 uric acid 10.5 alkaline phosphatase and 53 albumin 2.8 COVID 19-PCR-not detected EKG tracing personally reviewed by me shows normal sinus rhythm, intrafascicular block Chest x-ray film personally reviewed by me-possible right basilar infiltrate Assessment: -Possible pneumonia in the immunosuppressed patient currently in a blast transformation, cover for gram-negative organism, POA -Pancytopenia from 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 Bone marrow biopsy this afternoon. We will add stress dose of steroids. Prognosis guarded. IV fluids. Change to daptomycin because of renal function. Blood cultures pending.
[2020-02-07] MEDS ORDERED: HYDROXYUREA 500 MG CAP PO ONE (21:30)
[2020-02-07] MEDS: HYDROCORTISONE SUCCINATE 100 MG/2 ML VIAL IV SCH (21:55)
[2020-02-07] MEDS: DAPTOmycin 500 MG in SODIUM CHLORIDE 0.9% 50 ML IVPB SCH (22:36)
[2020-02-08] MEDS ORDERED: HYDROCORTISONE SUCCINATE 100 MG/2 ML VIAL ONE (01:50)
[2020-02-08] MEDS: HYDROCORTISONE SUCCINATE 100 MG/2 ML VIAL IV SCH ×4 (06:07→23:25)
[2020-02-08] MEDS: SODIUM CHLORIDE 0.9% 1,000 ML IV SCH ×4 (06:21→18:37)
[2020-02-08 07:31] LABS: HCT 28.2 % (39.0-53.0); HGB 8.9 gm/dL (13.0-17.5); Hypochromasia Moderate; MCH 27.8 pg (25.0-35.0); MCHC 31.4 g/dL (31.0-37.0); MCV 88.4 fL (80.0-100.0); Mean Platelet Volume 8.1; RBC 3.19 m/uL (4.30-5.90); RDW 15.2 % (11.5-15.5)
[2020-02-08 07:40] LABS: Platelet Count 27 k/uL (150-450)
[2020-02-08 07:42] LABS: Albumin 2.3 g/dL (3.5-5.0); Calcium 8.8 mg/dL (8.4-10.2); Phosphorus 3.2 mg/dL (2.5-4.5); Potassium 3.7 mmol/L (3.5-5.1); Total Bilirubin 0.9 mg/dL (0.2-1.3); Total Protein 4.7 g/dL (6.3-8.2); Uric Acid 9.5 mg/dL (3.5-8.5)
[2020-02-08] MEDS: HYDROXYUREA 500 MG CAP PO SCH ×3 (09:31→21:21)
[2020-02-08] MEDS: CHOLECALCIFEROL 1,000 UNIT TAB PO SCH ×2 (09:31→21:20)
[2020-02-08] MEDS: CALCIUM ACETATE 667 MG TAB PO SCH ×2 (09:31→17:22)
[2020-02-08] MEDS: FINASTERIDE 5 MG TAB PO SCH (09:31)
[2020-02-08] MEDS: TAMSULOSIN 0.4 MG CAP.ER.24H PO SCH ×2 (09:31→21:21)
[2020-02-08] MEDS: CEFEPIME 1 GM in SODIUM CHLORIDE 0.9% 50 ML IVPB SCH ×2 (09:31→20:17)
[2020-02-08] MEDS: CYANOCOBALAMIN 500 MCG TAB PO SCH (09:31)
[2020-02-08] MEDS: ACETAMINOPHEN TAB 325 MG TAB PO PRN (09:35)
[2020-02-08 09:44] LABS: Band Neutrophils % 1 %; Myelocytes % 1 %; Neutrophils % (M) 6 %; Nucleated Red Blood Cells 1 /100 WBC (0-0); Total Cells Counted 200
[2020-02-08 09:45] LABS: Blast Cells # (M) 22.09 k/uL (0); Lymphocytes # (M) 2.37 k/uL (1.0-4.8); Myelocytes # (M) 0.26 k/uL (0); Tear Drop Cells Present; WBC 26.3 k/uL (3.8-10.6)
[2020-02-08 09:46] LABS: Anisocytosis (M) Present; Poikilocytosis (M) Present; RBC Fragments Present
[2020-02-08] MEDS ORDERED: RASBURICASE 6 MG in SODIUM CHLORIDE 0.9% 46 ML IV ONE (10:05)
[2020-02-08] MEDS ORDERED: LACTULOSE 20 GM/30 ML CUP PO ONE (10:45)
--- NOTE | 2020-02-08 11:35 | P.PN ---
Subjective Progress Note Date: 02/08/20 Principal diagnosis: Severe weakness, Leukocytosis with peripheral blasts In follow-up today patient has generalized weakness, denies fever, nausea, chest pain, abdominal pain, he is constipated requesting his lactulose. and son at the bedside for family meeting. Objective - Vital Signs Vital signs: Vital Signs Temp 97.3 F L 02/08/20 04:39 Pulse 83 02/08/20 04:39 Resp 22 02/08/20 04:39 BP 112/67 02/08/20 04:39 Pulse Ox 96 02/08/20 04:39 Intake & Output 02/07/20 02/08/20 02/08/20 18:59 06:59 18:59 Intake Total 100 Balance 100 Weight 86.183 kg Intake: IV 100 Other: Voiding Method Urinal Urinal # Voids 2 3 - Constitutional General appearance: Present: average body habitus, cooperative, no acute distress - EENT Eyes: Present: anicteric sclerae, EOMI ENT: Present: hearing grossly normal - Respiratory Details: Respirations even and unlabored - Cardiovascular Details: Skin warm and dry - Musculoskeletal Musculoskeletal: Present: generalized weakness - Psychiatric Psychiatric: Present: A&O x's 3, appropriate affect, intact judgment & insight - Labs CBC & Chem 7: 02/08/20 06:50 02/08/20 06:50 Labs: Abnormal Lab Results - Last 24 Hours (Table) 02/07/20 02/08/20 02/08/20 Range/Units 06:57 06:50 06:50 WBC 57.4 H* 26.3 H (3.8-10.6) k/uL RBC 3.51 L 3.19 L (4.30-5.90) m/uL Hgb 9.4 L D 8.9 L (13.0-17.5) gm/dL Hct 31.3 L 28.2 L (39.0-53.0) % MCHC 30.1 L (31.0-37.0) g/dL Plt Count 42 L 27 L (150-450) k/uL Blast Cells % 84 H* 84 H* % Lymphocytes # (Manual) 5.17 H (1.0-4.8) k/uL Monocytes # (Manual) 2.87 H (0-1.0) k/uL Myelocytes # (Manual) 0.26 H (0) k/uL Blast Cells # (Man) 48.22 H 22.09 H (0) k/uL Plasma Cell # (Manual) 9.76 H (0) k/uL Nucleated RBCs 1 H 1 H (0-0) /100 WBC Retic Count 0.4 L (0.5-2.0) % BUN 44 H (9-20) mg/dL Creatinine 1.57 H (0.66-1.25) mg/dL Glucose 130 H (74-99) mg/dL Uric Acid 9.5 H (3.5-8.5) mg/dL Alkaline Phosphatase 509 H (38-126) U/L Total Protein 4.7 L (6.3-8.2) g/dL Albumin 2.3 L (3.5-5.0) g/dL Microbiology - Last 24 Hours (Table) 02/05/20 23:21 Blood Culture - Preliminary Blood No Growth after 48 hours Assessment and Plan (1) Leukocytosis Current Visit: Yes Status: Acute Priority: High Code(s): D72.829 - ELEVATED WHITE BLOOD CELL COUNT, UNSPECIFIED SNOMED Code(s): 464941048 (2) Bicytopenia Current Visit: Yes Status: Acute Priority: High Code(s): D75.89 - OTHER SPECIFIED DISEASES OF BLOOD AND BLOOD-FORMING ORGANS SNOMED Code(s): 55681109 (3) Breast cancer in male Narrative/Plan: Discontinue tamoxifen Current Visit: No Status: Chronic Priority: Low Code(s): C50.929 - MALIGNANT NEOPLASM OF UNSP SITE OF UNSPECIFIED MALE BREAST SNOMED Code(s): 405133095 (4) Prostate cancer Narrative/Plan: Discontinues zytiga Current Visit: No Status: Chronic Priority: Low Code(s): C61 - MALIGNANT NEOPLASM OF PROSTATE SNOMED Code(s): 196185944 Plan: Patient is status post bone marrow biopsy and aspirate, pathology pending. Most suspicious for an acute leukemia. Patient and family are aware that preliminary results will likely not be available until early to mid next week Patient has required treatment for tumor lysis syndrome. His uric acid is elevated again today, another dose of Elitek ordered. Begin allopurinol orally tomorrow. Uric acid daily. Anemia and thrombocytopenia stable at this time. No transfusions. No aspirin, NSAIDs, anticoagulation. 40 minutes spent with the patient and the family reviewing hospital course, suspicions for acute leukemia as well as the poor prognosis for this disease in his age group. Currently going to continue with treatment and care as prescribed. Pending bone marrow biopsy results. Treatment options that are available for his age group were discussed. We addressed CODE STATUS in great detail. All of the patient and his family's questions were answered to the satisfaction. Patient is alert and oriented 4, he made a final decision that he does not want to be resuscitated, CODE STATUS has been changed. Case management consulted to talk with patient and family about home care, what they can offer and if any of those services would be useful to patient and the family. Time with Patient: Greater than 30
[2020-02-08] MEDS ORDERED: LACTULOSE 20 GM/30 ML CUP PO PRN (11:40)
[2020-02-08] MEDS: FERROUS SULFATE 325 MG TAB PO SCH (13:59)
[2020-02-08] MEDS ORDERED: VANCOMYCIN TROUGH DUE 1 EACH MISC MISCELLANE ONE (16:00)
--- NOTE | 2020-02-08 21:05 | P.PN ---
Progress Note - Text Progress Note Date: 02/08/20 Chief Complaint: Abnormal blood cells History of presenting complaint: This is a 84-year-old patient of Dr. Casarez. 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 Also had retroperitoneal adenopathy with right hydronephrosis. He was treated with androgen deprivation therapy and responded very well. PSA came down to less than 1. Subsequently he was noted to have some right renal atrophy. He again had cross immaturity in July 2019 and cystoscopy revealed a 2.5 cm mass of the bladder 4. Suspicious for urothelial carcinoma. He was supposed to have undergone TURP of the tumor but was Admitted with-pneumonia, acute hypoxic respiratory failure, acute COPD exacerbation. UTI with Enterococcus faecalis. Was discharged on September 19. Also workup in place for possible's pancytopenia from androgen deprivation therapy. On September 18 and underwent bone marrow biopsy. 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 Patient is put on tamoxifen and'sZytiga. 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 With intravesicular mitomycin. His follow-up visit his oncologist on January 15 was stable. Patient was now feeling last to 3 weeks weak tired rundown. Decreased appetite no fever no chills went to see his family doctor Dr. Casarez. Blood was drawn. He got a call last night that his white count was greatly elevated go down to the ER. Hematology was consulted. Patient was empirically given ceftriaxone and vancomycin the ER. So the patient this morning in the ER. at the bedside. Patient feels rather weak tired and exhausted. Patient did spike a fever in the ER Admitted with MDS with blast transformation and septic picture. Empirically put on vancomycin and cefepime. Also patient encephalopathic. Bone marrow biopsy done on February 06. Today-bit more awake. Answering questions. and son at the bedside. Awaiting a family meeting with oncology. Fevers are down. It about 25% of his breakfast. Review of systems: Was done for constitutional, cardiovascular, GI, pulmonary. relevant finding as above Active Medications Acetaminophen (Tylenol Tab) 650 mg PO Q6HR PRN PRN Reason: Fever and/ or Pain Last Admin: 02/08/20 09:35 Dose: 650 mg Documented by: Allopurinol (Zyloprim) 100 mg PO DAILY NAYELI Calcium Acetate (Phoslo) 667 mg PO BID-W/MEALS [facility] Last Admin: 02/08/20 17:22 Dose: 667 mg Documented by: Cholecalciferol (Vitamin D3 (25 Mcg = 1000 Iu)) 1,000 unit PO BID [facility] Last Admin: 02/08/20 09:31 Dose: 1,000 unit Documented by: Cyanocobalamin (Vitamin B-12) 1,000 mcg PO DAILY [facility] Last Admin: 02/08/20 09:31 Dose: 1,000 mcg Documented by: Ferrous Sulfate (Feosol) 325 mg PO W/LUNCH [facility] Last Admin: 02/08/20 13:59 Dose: 325 mg Documented by: Finasteride (Proscar) 5 mg PO DAILY [facility] Last Admin: 02/08/20 09:31 Dose: 5 mg Documented by: Hydrocortisone Sodium Succinate (Solu-Cortef) 50 mg IV Q8HR [facility] Last Admin: 02/08/20 17:22 Dose: 50 mg Documented by: Hydroxyurea (Hydrea) 500 mg PO TID [facility] Last Admin: 02/08/20 17:23 Dose: 500 mg Documented by: Sodium Chloride (Saline 0.9%) 1,000 mls @ 130 mls/hr IV .Q7H42M [facility] Last Admin: 02/08/20 18:37 Dose: 130 mls/hr Documented by: Cefepime HCl 1 gm/ Sodium (Chloride) 50 mls @ 100 mls/hr IVPB Q12HR [facility] Last Admin: 02/08/20 20:17 Dose: 100 mls/hr Documented by: Daptomycin 500 mg/ Sodium (Chloride) 50 mls @ 100 mls/hr IVPB Q24H [facility]; Protocol Last Admin: 02/07/20 22:36 Dose: 100 mls/hr Documented by: Lactulose (Cephulac) 30 gm PO DAILY PRN PRN Reason: Constipation Naloxone HCl (Narcan) 0.2 mg IV Q2M PRN PRN Reason: Opioid Reversal Ondansetron HCl (Zofran) 4 mg IVP Q8HR PRN PRN Reason: Nausea And Vomiting Tamsulosin HCl (Flomax) 0.8 mg PO BID [facility] Last Admin: 02/08/20 09:31 Dose: 0.8 mg Documented by: Physical examination: VITAL SIGNS: 97.7, 87, 16, 109/70, 25% on 3 L GENERAL: Laying in bed, more awake today EYES: Pupils equal. Conjunctiva pale HEENT: External appearance of nose and ears normal, oral cavity grossly normal. NECK: JVD not raised; masses not palpable. HEART: First and second heart sounds are normal; no edema. LUNGS: Respiratory rate normal, diminished breath sounds ABDOMEN: Soft, minimal lower abdominal tenderness, no guarding or rigidity, liver spleen not palpable, no masses palpable. 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 INVESTIGATIONS, reviewed in the clinical context: White count was 6.3, hemoglobin 8.9, crit is 27 potassium 3.7 bun 44 creatinine 1.57 uric acid 9.5 Previous testing White count 76 hemoglobin 11.1 platelets 64 blast cells 41% potassium 3.7 bun 24 creatinine 1.28 uric acid 10.5 alkaline phosphatase and 53 albumin 2.8 COVID 19-PCR-not detected EKG tracing personally reviewed by me shows normal sinus rhythm, intrafascicular block Chest x-ray film personally reviewed by me-possible right basilar infiltrate Assessment: -Possible pneumonia in the immunosuppressed patient currently in a blast transformation, cover for gram-negative organism, POA -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 On stress dose of IV Cortef. Decreased dose to 25 mg every 8. Had a lengthy talk with the patient's and son. Questions specific to abnormal blood cells will be discussed this afternoon with the hematology team. Total time spent today was about 40 minutes with 20 minutes of discussion.
[2020-02-08] MEDS: DAPTOmycin 500 MG in SODIUM CHLORIDE 0.9% 50 ML IVPB SCH (21:21)
--- NOTE | 2020-02-09 07:00 | P.CONS ---
History of Present Illness - Reason for Consult Consult date: 02/08/20 Fever Requesting physician: Julian Garza - Chief Complaint weakness and abnormal labs x 1 day - History of Present Illness Patient is 84-year-old male with a past medical history difficult for invasive ductal carcinoma status post mastectomy 2 years ago also with a history of prostate cancer patient recently did have blood work done by his primary care physician for the patient's symptoms of 4 generalized weakness and fatigue that is been going on for 2 to 3 weeks, patient noticed to have a elevated white count for the patient has been sent to go to the hospital patient denies any fever or any chills denies having any chest pain or shortness of breath with minimal cough some nausea but no vomiting no abdominal pain no burning or frequency of urine with the symptom patient has been evaluated by the ER physician on arrival to the ER patient was initially afebrile subsequently spiked a fever of 101.3 F patient did have white count 76,000 on presentation which is down to 26.3 today he also have a borderline kidney function with a creatinine 1.44 liver enzymes has been normal urine has been negative valladares PCR was negative patient did have bone marrow biopsy which is currently pending chest x-ray on admission did show some mild subsegmental atelectasis and pleural fluid does seem to have improved compared to last exam patient has been started on cefepime 1 g every 12 in addition to daptomycin infectious disease has been consulted for further management of antibiotic therapy. Review of Systems Positive point has been mentioned in HPI rest of the systems are negative Past Medical History Past Medical History: Cancer, Hyperlipidemia, Hypertension Additional Past Medical History / Comment(s): hx prostate cancer pt states currently in remission, rt breast cancer recent mammogram "clean", anemia, recent infection lower rt leg tx with antibiotics. bladder mass History of Any Multi-Drug Resistant Organisms: None Reported Past Surgical History: Appendectomy, Breast Surgery, Orthopedic Surgery Additional Past Surgical History / Comment(s): colonoscopy, rt breast mastect marcus, arthroscopic knee surgery, splenectomy, bladder surgery to remove mass Past Anesthesia/Blood Transfusion Reactions: No Reported Reaction Past Psychological History: Anxiety Smoking Status: Former smoker Past Alcohol Use History: None Reported Past Drug Use History: None Reported - Past Family History Father Family Medical History: Cancer Additional Family Medical History / Comment(s): prostate Sister(s) Family Medical History: Cancer Additional Family Medical History / Comment(s): breast Brother(s) Family Medical History: Cancer Additional Family Medical History / Comment(s): colon cancer Mother Family Medical History: No Reported History Additional Family Medical History / Comment(s): Mother lived to be 98yrs old. Medications and Allergies Home Medications Medication Instructions Recorded Confirmed Type Abiraterone Acetate [Zytiga] 1,000 mg PO DAILY 02/07/19 02/06/20 History predniSONE 5 mg PO DAILY 02/07/19 02/06/20 History Tamoxifen Citrate 20 mg PO W/SUPPER 09/15/19 02/06/20 History Xgeva 120mg/1.7ml Subcutaneous 1.7 ml SQ Q90D 09/15/19 02/06/20 History Cyanocobalamin [Vitamin B-12] 1,000 mcg PO DAILY #30 tab 09/27/19 02/06/20 Rx Tamsulosin HCl [Flomax] 0.8 mg PO BID #0 10/01/19 02/06/20 Rx Ascorbic Acid [Vitamin C] 500 mg PO W/SUPPER 02/06/20 02/06/20 History Calcium Carbonate [Calcium] 600 mg PO DAILY 02/06/20 02/06/20 History Cholecalciferol [Vitamin D3 (25 2,000 unit PO DAILY 02/06/20 02/06/20 History Mcg = 1000 Iu)] Ciclopirox Olamine [Loprox 0.77% 1 applic TOPICAL DAILY 02/06/20 02/06/20 History cream] Ferrous Sulfate [Feosol] 325 mg PO W/SUPPER 02/06/20 02/06/20 History Lactulose [Cephulac] 10 gram PO BID PRN 02/06/20 02/06/20 History Allopurinol [Zyloprim] 100 mg PO DAILY #30 tablet 02/08/20 Rx Hydroxyurea [Hydrea] 500 mg PO DAILY #90 capsule 02/08/20 Rx Allergies Allergy/AdvReac Type Severity Reaction Status Date / Time No Known Allergies Allergy Verified 02/06/20 09:07 Physical Exam Vitals: Vital Signs Temp Pulse Resp BP Pulse Ox 02/08/20 12:16 97.7 F 87 16 109/70 95 02/08/20 04:39 97.3 F L 83 22 112/67 96 02/07/20 19:27 99.3 F 101 H 24 121/70 94 L Intake and Output 02/08/20 02/08/20 02/08/20 06:59 14:59 22:59 Other: Voiding Method Urinal Toilet Urinal # Voids 3 3 # Bowel Movements 1 GENERAL DESCRIPTION: Elderly male lying in bed, no distress. No tachypnea or accessory muscle of respiration use. HEENT: Shows Pallor , no scleral icterus. Oral mucous membrane is dry. NECK: Trachea central, no thyromegaly. LUNGS: Unlabored breathing. Decreased breath sound at the base. No wheeze or crackle. HEART: S1, S2, regular rate and rhythm. ABDOMEN: Soft, no tenderness , guarding or rigidity EXTREMITIES: No edema of feet. SKIN: No rash, no masses palpable. NEUROLOGICAL: The patient is awake, alert, oriented x3, mood and affect normal. Results CBC & Chem 7: 02/08/20 06:50 02/08/20 06:50 Labs: Abnormal Lab Results - Last 24 Hours (Table) 02/08/20 02/08/20 Range/Units 06:50 06:50 WBC 26.3 H (3.8-10.6) k/uL RBC 3.19 L (4.30-5.90) m/uL Hgb 8.9 L (13.0-17.5) gm/dL Hct 28.2 L (39.0-53.0) % Plt Count 27 L (150-450) k/uL Blast Cells % 84 H* % Myelocytes # (Manual) 0.26 H (0) k/uL Blast Cells # (Man) 22.09 H (0) k/uL Nucleated RBCs 1 H (0-0) /100 WBC BUN 44 H (9-20) mg/dL Creatinine 1.57 H (0.66-1.25) mg/dL Glucose 130 H (74-99) mg/dL Uric Acid 9.5 H (3.5-8.5) mg/dL Alkaline Phosphatase 509 H (38-126) U/L Total Protein 4.7 L (6.3-8.2) g/dL Albumin 2.3 L (3.5-5.0) g/dL Microbiology - Last 24 Hours (Table) 02/05/20 23:21 Blood Culture - Preliminary Blood No Growth after 48 hours Assessment and Plan Assessment: patient presented hospital with abnormal labs in this patient who did have a white count of 57,000 on presentation with 31% blasts high clinical suspicious for hematological malignancy patient did have an episode of fever which could be more likely to his underlying hematological malignancy as currently no obvious focus of infection but the patient did have mild respiratory symptoms and some atelectasis underlying pneumonia less likely but not entirely excluded. (1) Leukocytosis Current Visit: Yes Status: Acute Priority: High Code(s): D72.829 - ELEVATED WHITE BLOOD CELL COUNT, UNSPECIFIED SNOMED Code(s): 197750740 (2) Fever Current Visit: No Status: Acute Code(s): R50.9 - FEVER, UNSPECIFIED SNOMED Code(s): 370620371 Plan: 1-we will adjust the dose of cefepime 2 g every 12 hours 2-discontinue daptomycin 3- obtain a sputum for Gram stain and culture We will follow on clinical condition and cultures to further adjust medication if needed Thank you for this consultation we will follow the patient along with you Time with Patient: Greater than 30
[2020-02-09 07:28] LABS: Albumin 2.4 g/dL (3.5-5.0); Phosphorus 1.4 mg/dL (2.5-4.5); Potassium 3.2 mmol/L (3.5-5.1); Total Bilirubin 0.9 mg/dL (0.2-1.3); Uric Acid 5.8 mg/dL (3.5-8.5)
[2020-02-09 07:31] LABS: Anisocytosis Slight; HCT 27.6 % (39.0-53.0); HGB 8.4 gm/dL (13.0-17.5); Hypochromasia Slight; MCH 26.3 pg (25.0-35.0); MCHC 30.3 g/dL (31.0-37.0); MCV 86.8 fL (80.0-100.0); Mean Platelet Volume 8.3; RBC 3.19 m/uL (4.30-5.90); RDW 16.2 % (11.5-15.5)
[2020-02-09 07:33] LABS: WBC 69.9 k/uL (3.8-10.6)
[2020-02-09 07:34] LABS: Platelet Count 55 k/uL (150-450)
[2020-02-09] MEDS: HYDROCORTISONE SUCCINATE 100 MG/2 ML VIAL IV SCH ×2 (08:41→17:00)
[2020-02-09] MEDS: CHOLECALCIFEROL 1,000 UNIT TAB PO SCH ×2 (08:42→21:17)
[2020-02-09] MEDS: FERROUS SULFATE 325 MG TAB PO SCH (08:42)
[2020-02-09] MEDS: ALLOPURINOL 100 MG TAB PO SCH (08:42)
[2020-02-09] MEDS: CALCIUM ACETATE 667 MG TAB PO SCH ×2 (08:42→17:00)
[2020-02-09 08:43] LABS: Neutrophils % (M) 1 %
[2020-02-09] MEDS: CYANOCOBALAMIN 500 MCG TAB PO SCH (08:43)
[2020-02-09] MEDS: FINASTERIDE 5 MG TAB PO SCH (08:43)
[2020-02-09] MEDS: TAMSULOSIN 0.4 MG CAP.ER.24H PO SCH ×2 (08:43→21:17)
[2020-02-09 08:44] LABS: Nucleated Red Blood Cells 0 /100 WBC (0-0); Total Cells Counted 200
[2020-02-09] MEDS: CEFEPIME 2 GM in SODIUM CHLORIDE 0.9% 100 ML IVPB SCH ×2 (08:44→21:17)
[2020-02-09] MEDS: HYDROXYUREA 500 MG CAP PO SCH ×3 (08:44→23:22)
[2020-02-09 08:45] LABS: Poikilocytosis (M) Present; Target Cells Present
[2020-02-09] MEDS ORDERED: CEFEPIME 2 GM in SODIUM CHLORIDE 0.9% 50 ML IVPB SCH (09:00)
[2020-02-09] MEDS: SODIUM CHLORIDE 0.9% 1,000 ML IV SCH ×2 (14:09→17:01)
--- NOTE | 2020-02-09 15:32 | PN ---
PROGRESS NOTE DATE OF SERVICE: 02/09/2020 REASON FOR FOLLOWUP: Fever and leukocytosis. INTERVAL HISTORY: The patient is currently afebrile, has been breathing comfortably. Denies having any chest pain. Occasional cough. No shortness of breath. No abdominal pain. No nausea, vomiting or any diarrhea. PHYSICAL EXAMINATION: Blood pressure 117/68 with a pulse of 95, temperature 98.2. He is 93% on 3 L nasal cannula. General description is an elderly male up in the bed in no distress. RESPIRATORY SYSTEM: Unlabored breathing with decreased breath sounds at the base. No wheeze. HEART: S1, S2. Regular rate and rhythm. ABDOMEN: Soft. No tenderness. LABS: Hemoglobin 8.4, white count 69.9. Blasts increased to 96%. Creatinine 1.46. DIAGNOSTIC IMPRESSION AND PLAN: Patient with elevated white count more likely secondary to underlying acute leukemia, status post bone marrow. Fever could be more likely related to underlying hematological malignancy. Infection less likely but not excluded. Await repeat x-ray. Keep the patient on the cefepime and monitor his clinical course closely. MMODL / IJN: [id number] /
--- NOTE | 2020-02-09 15:59 | XR ---
EXAMINATION TYPE: XR chest 2V DATE OF EXAM: 02/09/2020 COMPARISON: Prior chest x-ray 02/05/[address] 09/29/2019 HISTORY: Shortness of breath TECHNIQUE: Frontal and lateral views of the chest are obtained. FINDINGS: Increased retrocardiac density suspected. Patient is rotated. Aorta is dense. No pneumotho rax. Probable old left-sided rib fractures appear healed. Aorta is dense. The heart is borderline enl arged although appearance may be accentuated by technique, rotation. Arthropathy noted in the right s houlder. There are some interstitial changes in the lungs. IMPRESSION: Left lower lobe atelectasis versus pneumonia and associated effusion or chronic pleural reaction, correlate. Old traumatic changes are again seen. Additional findings above.
[2020-02-09] MEDS ORDERED: FUROSEMIDE 10 MG/ML 4 ML VIAL IV STA (18:33)
--- NOTE | 2020-02-09 21:40 | P.PN ---
Progress Note - Text Progress Note Date: 02/09/20 Chief Complaint: Abnormal blood cells History of presenting complaint: This is a 84-year-old patient of Dr. Casarez. 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 Also had retroperitoneal adenopathy with right hydronephrosis. He was treated with androgen deprivation therapy and responded very well. PSA came down to less than 1. Subsequently he was noted to have some right renal atrophy. He again had cross immaturity in July 2019 and cystoscopy revealed a 2.5 cm mass of the bladder 4. Suspicious for urothelial carcinoma. He was supposed to have undergone TURP of the tumor but was Admitted with-pneumonia, acute hypoxic respiratory failure, acute COPD exacerbation. UTI with Enterococcus faecalis. Was discharged on September 19. Also workup in place for possible's pancytopenia from androgen deprivation therapy. On September 18 and underwent bone marrow biopsy. 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 Patient is put on tamoxifen and'sZytiga. 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 With intravesicular mitomycin. His follow-up visit his oncologist on January 15 was stable. Patient was now feeling last to 3 weeks weak tired rundown. Decreased appetite no fever no chills went to see his family doctor Dr. Casarez. Blood was drawn. He got a call last night that his white count was greatly elevated go down to the ER. Hematology was consulted. Patient was empirically given ceftriaxone and vancomycin the ER. So the patient this morning in the ER. at the bedside. Patient feels rather weak tired and exhausted. Patient did spike a fever in the ER Admitted with MDS with blast transformation and septic picture. Empirically put on vancomycin and cefepime. Also patient encephalopathic. Bone marrow biopsy done on February 06. Today-patient awake talking. Short of breath. Did tolerate some diet. I did order a chest x-ray. Shows some pulmonary edema. Ordered IV Lasix. Review of systems: Was done for constitutional, cardiovascular, GI, pulmonary. relevant finding as above Active Medications Acetaminophen (Tylenol Tab) 650 mg PO Q6HR PRN PRN Reason: Fever and/ or Pain Last Admin: 02/08/20 09:35 Dose: 650 mg Documented by: Allopurinol (Zyloprim) 100 mg PO DAILY NAYELI Last Admin: 02/09/20 08:42 Dose: 100 mg Documented by: Calcium Acetate (Phoslo) 667 mg PO BID-W/MEALS [facility] Last Admin: 02/09/20 17:00 Dose: 667 mg Documented by: Cholecalciferol (Vitamin D3 (25 Mcg = 1000 Iu)) 1,000 unit PO BID [facility] Last Admin: 02/09/20 21:17 Dose: 1,000 unit Documented by: Cyanocobalamin (Vitamin B-12) 1,000 mcg PO DAILY [facility] Last Admin: 02/09/20 08:43 Dose: 1,000 mcg Documented by: Ferrous Sulfate (Feosol) 325 mg PO W/LUNCH [facility] Last Admin: 02/09/20 08:42 Dose: 325 mg Documented by: Finasteride (Proscar) 5 mg PO DAILY [facility] Last Admin: 02/09/20 08:43 Dose: 5 mg Documented by: Hydrocortisone Sodium Succinate (Solu-Cortef) 25 mg IV Q8HR [facility] Last Admin: 02/09/20 17:00 Dose: 25 mg Documented by: Hydroxyurea (Hydrea) 500 mg PO TID [facility] Last Admin: 02/09/20 17:01 Dose: 500 mg Documented by: Sodium Chloride (Saline 0.9%) 1,000 mls @ 130 mls/hr IV .Q7H42M [facility] Last Admin: 02/09/20 17:01 Dose: Not Given Documented by: Cefepime HCl 2 gm/ Sodium (Chloride) 100 mls @ 200 mls/hr IVPB Q12HR [facility] Last Admin: 02/09/20 21:17 Dose: 200 mls/hr Documented by: Lactulose (Cephulac) 30 gm PO DAILY PRN PRN Reason: Constipation Naloxone HCl (Narcan) 0.2 mg IV Q2M PRN PRN Reason: Opioid Reversal Ondansetron HCl (Zofran) 4 mg IVP Q8HR PRN PRN Reason: Nausea And Vomiting Tamsulosin HCl (Flomax) 0.8 mg PO BID [facility] Last Admin: 02/09/20 21:17 Dose: 0.8 mg Documented by: Physical examination: VITAL SIGNS: 98.2, 95, 22, 117/68, 93% on 3 L GENERAL: Laying in bed, awake EYES: Pupils equal. Conjunctiva pale HEENT: External appearance of nose and ears normal, oral cavity grossly normal. NECK: JVD not raised; masses not palpable. HEART: First and second heart sounds are normal; no edema. LUNGS: Respiratory rate increased diminished breath sounds ABDOMEN: Soft, minimal lower abdominal tenderness, no guarding or rigidity, liver spleen not palpable, no masses palpable. 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 INVESTIGATIONS, reviewed in the clinical context: White count 69.9, hemoglobin 8.4, platelets 96, potassium 3.2 bun 50 creatinine 1.46 Chest x-ray film personally reviewed by me-some pulmonary edema Previous testing White count 76 hemoglobin 11.1 platelets 64 blast cells 41% potassium 3.7 bun 24 creatinine 1.28 uric acid 10.5 alkaline phosphatase and 53 albumin 2.8 COVID 19-PCR-not detected EKG tracing personally reviewed by me shows normal sinus rhythm, intrafascicular block Chest x-ray film personally reviewed by me-possible right basilar infiltrate Assessment: -Possible pneumonia in the immunosuppressed patient currently in a blast transformation, cover for gram-negative organism, POA -Acute fluid overload/pulmonary edema from IV fluids-new diagnosis today -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 Later spoke with Dr. Colon from oncology. Prognosis not good poor. Patient will benefit possibly from hospice. Advanced care planning: Had a lengthy talk with the patient this evening. Discussed with the hospice. She is willing to take the patient home tomorrow. Hospital bed was discussed. Patient's son will be moving in to help them out. Patient is known to hospice because of other family members. Medications were discussed. She'll make a choice of the hospice provider. Did communicate to the nurse. Plan is to send the patient home with hospice tomorrow. Other questions were answered. I spent on this for about 20-25 minutes
[2020-02-10] MEDS: HYDROCORTISONE SUCCINATE 100 MG/2 ML VIAL IV SCH ×2 (00:05→08:40)
--- NOTE | 2020-02-10 01:47 | P.PN ---
Subjective Progress Note Date: 02/07/20 The patient appears very weak and fatigued. He is drowsy though arousable. He seems to drift off multiple times during our conversation. Though his responses were appropriate, affect and comprehension appear to be significantly slow.. He also appeared to be having difficulty with recall even within a few minutes. He denied any significant pain. No obvious bleeding. No fever or chills Objective - Vital Signs Vital signs: Vital Signs Temp 99.3 F 02/07/20 19:27 Pulse 101 H 02/07/20 19:27 Resp 24 02/07/20 19:27 BP 121/70 02/07/20 19:27 Pulse Ox 94 L 02/07/20 19:27 Intake & Output 02/07/20 02/07/20 02/08/20 06:59 18:59 06:59 Intake Total 1600 100 Balance 1600 100 Weight 86.183 kg Intake: IV 100 Intake, IV Titration 1300 Amount Cefepime 1 gm In Sodium 50 Chloride 0.9% 50 ml @ 100 mls/hr IVPB Q12HR [facility] Rx #:[id number] Sodium Chloride 0.9% 1, 1000 000 ml @ 100 mls/hr IV . Q10H [facility] Rx#:[id number] Vancomycin 1,500 mg In 250 Sodium Chloride 0.9% 250 ml @ 125 mls/hr IVPB Q16H [facility] Rx#:[id number] Oral 300 Other: Voiding Method Urinal Urinal # Voids 2 2 3 - Constitutional General appearance: Present: no acute distress - EENT Eyes: Present: EOMI ENT: Present: hearing grossly normal, normal oropharynx - Respiratory Respiratory: bilateral: CTA - Cardiovascular Rhythm: regular Heart sounds: normal: S1, S2 - Gastrointestinal General gastrointestinal: Present: normal bowel sounds, soft - Integumentary Integumentary: Present: normal - Neurologic Neurologic: Present: CNII-XII intact - Musculoskeletal Musculoskeletal: Present: generalized weakness, strength equal bilaterally - Psychiatric Psychiatric Comment(s): as per HPI - Labs CBC & Chem 7: 02/09/20 06:32 02/09/20 06:32 Labs: Abnormal Lab Results - Last 24 Hours (Table) 02/07/20 02/07/20 02/07/20 Range/Units 06:56 06:57 06:57 WBC 57.4 H* (3.8-10.6) k/uL RBC 3.51 L (4.30-5.90) m/uL Hgb 9.4 L D (13.0-17.5) gm/dL Hct 31.3 L (39.0-53.0) % MCHC 30.1 L (31.0-37.0) g/dL Plt Count 42 L (150-450) k/uL Blast Cells % 84 H* % Lymphocytes # (Manual) 5.17 H (1.0-4.8) k/uL Monocytes # (Manual) 2.87 H (0-1.0) k/uL Blast Cells # (Man) 48.22 H (0) k/uL Plasma Cell # (Manual) 9.76 H (0) k/uL Nucleated RBCs 1 H (0-0) /100 WBC Retic Count 0.4 L (0.5-2.0) % Sodium 134 L (137-145) mmol/L BUN 31 H (9-20) mg/dL Creatinine 1.51 H 1.59 H (0.66-1.25) mg/dL Glucose 102 H (74-99) mg/dL Calcium 10.4 H (8.4-10.2) mg/dL Phosphorus 1.5 L (2.5-4.5) mg/dL Alkaline Phosphatase 556 H (38-126) U/L Total Protein 4.8 L (6.3-8.2) g/dL Albumin 2.4 L (3.5-5.0) g/dL Microbiology - Last 24 Hours (Table) 02/05/20 23:21 Blood Culture - Preliminary Blood No Growth after 24 hours Assessment and Plan (1) Leukocytosis Narrative/Plan: The patient's WBC continues to be elevated, with further increase in percentage of blasts. Case discussed with pathology confirmed blasts. Thus the pt appears to have acute leukemia. This was discussed with the patient. He was advised that he has an acute leukemia, In addition in this patient, he appears to have had a very aggressive presentation. Acute leukemia, in this age group, especially with aggressive presentation causing evidence of spontaneous tumor lysis and major change in the performance status of this patient portends a very poor prognosis. Treatment options would be quite limited. The patient would not be a candidate for standard high-dose induction and consolidation chemotherapy or bone marrow transplant. Other options would include hypomethylating agent with or without Venetoclax. However chances of meaningful clinical benefit with such aggressive, rapidly progressive presentation would be low. If the patient has an appropriate biomarker such as ID H, he could be a candidate for targeted agents. However it would need at least 1-2 weeks to get that information from his bone marrow. Again with targeted therapy, it is doubtful that he would be able to get meaningful response in time to provide clinical benefit with such an aggressive presentation. I discussed the above with him, and based on that also discussed foregoing bone marrow and opting for comfort care which would be very reasonable in my opinion. The patient stated that he wanted to proceed with the bone marrow but it was fairly obvious that he was not able to comprehend all that we discussed. We therefore proceeded with the bone marrow. With the pt's permission I talked to his in detail about the above. She had multiple questions that were also answered in detail. The pathology, prognosis, and limited treatment options were discussed with her. I essentially advised her similarly as with the patient, that in my opinion the chances of the patient getting any clinical benefit from treatment that he might be able to tolerate would be very low. For consideration of comfort care would be very reasonable. She expressed understanding of the same. At this time the patient is currently on Hydrea. I did discuss with her, that if he has a good response to Hydrea, this may be able to delay disease progression to the extent where the patient could potentially be able to initiate a regimen such as Vidaza + Venetoclax. While this could potentially be more tolerable, it is unlikely that he would be able to tolerate this either unless his performance status improved in addition the chances of this regimen working in time with such aggressive disease to make a difference would be quite low. Therefore at this time it was decided to continue the Hydrea with increased dose, and to see the patient responded in terms of counts and performance status over the next couple of days. I also discussed the patient's CODE STATUS. Based on the current clinical situation, I would strongly recommend that the patient be a no code. She ex pressed understanding of the rationale, but did not want to change status yet, before discussing with the patient and his son. Current Visit: Yes Status: Acute Priority: High Code(s): D72.829 - ELEVATED WHITE BLOOD CELL COUNT, UNSPECIFIED SNOMED Code(s): 687299781 (2) Tumor lysis syndrome Narrative/Plan: The patient's labs indicated the same. This again is an indicator of progressive disease. Patient has received rasburicase. Continue hydration and monitor labs for the same. Current Visit: Yes Status: Acute Code(s): E88.3 - TUMOR LYSIS SYNDROME SNOMED Code(s): 217366301 Time with Patient: Greater than 30
--- NOTE | 2020-02-10 02:08 | P.PN ---
Subjective Progress Note Date: 02/09/20 The patient's condition has continued to decline. He remains quite weak. He has become progressively more short of breath and is currently on 4 L of oxygen. He has no orthopnea. He has had a borderline temperature of 100.4 but no fever otherwise. He has had some mild bleeding from his lips. No blood in the stool or urine. The patient continues to be lethargic and sleepy. However he seems to be overall more alert and comprehending Objective - Vital Signs Vital signs: Vital Signs Temp 98 F 02/09/20 21:15 Pulse 105 H 02/09/20 21:15 Resp 16 02/09/20 21:15 BP 111/72 02/09/20 21:15 Pulse Ox 94 L 02/09/20 21:15 Intake & Output 02/09/20 02/09/20 02/10/20 06:59 18:59 06:59 Intake Total 1 100 Output Total 1 3 Balance 0 97 Weight 86.183 kg Intake: Intake, IV Titration 100 Amount Cefepime 2 gm In Sodium 100 Chloride 0.9% 100 ml @ 200 mls/hr IVPB Q12HR [facility] Rx#:[id number] Oral 1 Output: Urine 1 3 Other: Voiding Method Toilet Toilet Toilet Urinal Urinal Urinal # Voids 3 2 # Bowel Movements 2 2 - Constitutional General appearance: Present: no acute distress - EENT Eyes: Present: EOMI ENT: Present: hearing grossly normal - Respiratory Respiratory: left: diminished - Cardiovascular Rhythm: regular Heart sounds: normal: S1, S2 - Gastrointestinal General gastrointestinal: Present: normal bowel sounds, soft - Integumentary Integumentary: Present: normal - Neurologic Neurologic: Present: CNII-XII intact - Musculoskeletal Musculoskeletal: Present: generalized weakness, strength equal bilaterally - Psychiatric Psychiatric Comment(s): Patient is lethargic, and drowsy but arousable. However, overall he is somewhat more alert. Though responses are slow, there appropriate. Comprehension appears to be fairly normal based on his responses and questions Psychiatric: Present: A&O x's 3 - Labs CBC & Chem 7: 02/09/20 06:32 02/09/20 06:32 Labs: Abnormal Lab Results - Last 24 Hours (Table) 02/09/20 02/09/20 02/09/20 Range/Units 06:32 06:32 06:32 WBC 69.9 H* (3.8-10.6) k/uL RBC 3.19 L (4.30-5.90) m/uL Hgb 8.4 L (13.0-17.5) gm/dL Hct 27.6 L (39.0-53.0) % MCHC 30.3 L (31.0-37.0) g/dL RDW 16.2 H (11.5-15.5) % Plt Count 55 L D (150-450) k/uL Blast Cells % 96 H* % Neutrophils # (Manual) 0.70 L (1.3-7.7) k/uL Blast Cells # (Man) 67.10 H (0) k/uL Potassium 3.2 L (3.5-5.1) mmol/L BUN 50 H (9-20) mg/dL Creatinine 1.46 H (0.66-1.25) mg/dL Glucose 128 H (74-99) mg/dL Phosphorus 1.4 L (2.5-4.5) mg/dL Alkaline Phosphatase 518 H (38-126) U/L Total Protein 5.0 L (6.3-8.2) g/dL Albumin 2.4 L (3.5-5.0) g/dL Procalcitonin 1.80 H (0.02-0.09) ng/mL Microbiology - Last 24 Hours (Table) 02/05/20 23:21 Blood Culture - Preliminary Blood No Growth after 96 hours Assessment and Plan (1) Acute myeloblastic leukemia Narrative/Plan: The case was discussed with the pathologist at [facility]. No formal report has not yet been posted, preliminary report confirms acute myeloid leukemia. Most likely this appears to be of the myelomonocytic type. The diagnosis and prognosis were again discussed in exhaustive detail with the patient, and his . I again went over the fact that the patient would not be a candidate for standard aggressive induction chemotherapy. As discussed with his previously, the patient is continuing on Hydrea with an increased dose. If the patient had had a good response in terms of counts and performance status, then there could potentially be a small possibility of using a lower intensity regimen. Even in that case, the chances of clinical benefit given the aggressive onset of his leukemia, or still below. Unfortunately at this time the patient does not appear to be responding with WBC and blast percentage increasing significantly today after drop yesterday. The patient continues to be very weak and has had increasing oxygen requirement. Therefore in my opinion it appears to be very unlikely the patient would be an appropriate candidate for treatment. I have would therefore recommend comfort care as the most appropriate option for him. The rationale was discussed in d etail. The patient was in agreement and stated that he would like to go home. After detailed discussion with his she was also in agreement. Consult to be placed for hospice. The above was also discussed with the admitting service Current Visit: Yes Status: Acute Code(s): C92.00 - ACUTE MYELOBLASTIC LEUKEMIA, NOT HAVING ACHIEVED REMISSION SNOMED Code(s): 76616401 (2) Tumor lysis syndrome Narrative/Plan: After his first dose of rasburicase, the patient had developed recurrent increase in uric acid despite decrease in WBC. A second dose was given with some improvement. Continue hydration. Current Visit: Yes Status: Acute Code(s): E88.3 - TUMOR LYSIS SYNDROME SNOMED Code(s): 287134148 Plan: Overall prognosis felt to be very poor and limited. The patient has agreed to changing CODE STATUS. Await hospice consult with plan to send patient home with hospice if possible Time with Patient: Greater than 30
[2020-02-10] MEDS: SODIUM CHLORIDE 0.9% 1,000 ML IV SCH ×2 (02:35→11:10)
[2020-02-10 07:23] LABS: Anisocytosis Slight; HCT 24.8 % (39.0-53.0); HGB 7.7 gm/dL (13.0-17.5); Hypochromasia Moderate; MCH 26.8 pg (25.0-35.0); MCHC 31.1 g/dL (31.0-37.0); Mean Platelet Volume 8.1; RBC 2.88 m/uL (4.30-5.90); RDW 17.2 % (11.5-15.5)
[2020-02-10 07:26] LABS: WBC 111.9 k/uL (3.8-10.6)
[2020-02-10 07:27] LABS: Platelet Count 94 k/uL (150-450)
[2020-02-10 07:43] LABS: Albumin 2.3 g/dL (3.5-5.0); Calcium 9.5 mg/dL (8.4-10.2); Potassium 4.6 mmol/L (3.5-5.1); Total Bilirubin 0.9 mg/dL (0.2-1.3); Total Protein 4.7 g/dL (6.3-8.2); Uric Acid 8.2 mg/dL (3.5-8.5)
[2020-02-10] MEDS: CALCIUM ACETATE 667 MG TAB PO SCH (08:38)
[2020-02-10] MEDS: CYANOCOBALAMIN 500 MCG TAB PO SCH (08:39)
[2020-02-10] MEDS: TAMSULOSIN 0.4 MG CAP.ER.24H PO SCH (08:39)
[2020-02-10] MEDS: ALLOPURINOL 100 MG TAB PO SCH (08:39)
[2020-02-10] MEDS: FINASTERIDE 5 MG TAB PO SCH (08:39)
[2020-02-10] MEDS: CHOLECALCIFEROL 1,000 UNIT TAB PO SCH (08:39)
[2020-02-10] MEDS: CEFEPIME 2 GM in SODIUM CHLORIDE 0.9% 100 ML IVPB SCH (08:40)
[2020-02-10] MEDS: HYDROXYUREA 500 MG CAP PO SCH (08:41)
[2020-02-10 10:07] LABS: Blast Cells # (M) 73.85 k/uL (0); Lymphocytes # (M) 13.43 k/uL (1.0-4.8); Metamyelocytes # (M) 2.24 k/uL (0); Metamyelocytes % 2 %; Monocytes # (M) 21.26 k/uL (0-1.0); Neutrophils # (M) 2.24 k/uL (1.3-7.7); Neutrophils % (M) 2 %; Nucleated Red Blood Cells 0 /100 WBC (0-0); Poikilocytosis (M) Present; Total Cells Counted 200
[2020-02-10] MEDS: FERROUS SULFATE 325 MG TAB PO SCH (12:44)
--- NOTE | 2020-02-10 12:46 | PN ---
PROGRESS NOTE DATE OF SERVICE: 02/10/2020 REASON FOR FOLLOWUP: Fever and question of pneumonia. INTERVAL HISTORY: The patient did have a low-grade fever yesterday 100.4. The patient afebrile since then. The patient is breathing comfortably. Heart requiring 4 L nasal cannula oxygen. Denies having any chest pain or cough. No abdominal pain. No diarrhea. PHYSICAL EXAMINATION: Blood pressure is 96/61 with a pulse of 102. Temperature 97.6. He is 93% on 4 L nasal cannula. General description is an elderly male lying in bed in no distress. Respiratory system: Unlabored breathing. Clear to auscultation anteriorly. HEART S1, S2. Regular rate and rhythm. ABDOMEN: Soft, no tenderness. LABS: Hemoglobin 7.7 with white count 111,000. down to 66, creatinine is 2.25. DIAGNOSTIC IMPRESSION AND PLAN: Patient with fever, likely from underlying hematological malignancy with acute leukemia. The patient overall poor prognosis and Oncology recommending a hospice which may be appropriate for him. Antibiotic can be safely discontinued. was at the bedside. Questions and concerns were answered. MMODL / IJN: [id number] /
[2020-02-10 12:48] VITALS: BP 89/55; PULSE 111; RESP 18; TEMP 97.8
--- NOTE | 2020-02-10 19:05 | P.DS ---
Providers Date of admission: 02/06/20 03:05 Expected date of discharge: 02/10/20 Attending physician: Julian Garza Consults: 02/06/20 03:06 Consult Physician Urgent Consulting Provider: Kerwin Colon Consult Reason/Comments: Your patient. Leukocytosis Do you want consulting provider notified?: Yes 02/07/20 20:07 Consult Physician Routine Consulting Provider: William Ayers Consult Reason/Comments: Sepsis Do you want consulting provider notified?: Yes Primary care physician: Johnny Casarez [facility] Course: Chief Complaint: Abnormal blood cells History of presenting complaint: This is a 84-year-old patient of Dr. Casarez. 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 Also had retroperitoneal adenopathy with right hydronephrosis. He was treated with androgen deprivation therapy and responded very well. PSA came down to less than 1. Subsequently he was noted to have some right renal atrophy. He again had cross immaturity in July 2019 and cystoscopy revealed a 2.5 cm mass of the bladder 4. Suspicious for urothelial carcinoma. He was supposed to have undergone TURP of the tumor but was Admitted with-pneumonia, acute hypoxic respiratory failure, acute COPD exacerbation. UTI with Enterococcus faecalis. Was discharged on September 19. Also workup in place for possible's pancytopenia from androgen deprivation therapy. On September 18 and underwent bone marrow biopsy. 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 Patient is put on tamoxifen and'sZytiga. 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 With intravesicular mitomycin. His follow-up visit his oncologist on January 15 was stable. Patient was now feeling last to 3 weeks weak tired rundown. Decreased appetite no fever no chills went to see his family doctor Dr. Casarez. Blood was drawn. He got a call last night that his white count was greatly elevated go down to the ER. Hematology was consulted. Patient was empirically given ceftriaxone and vancomycin the ER. So the patient this morning in the ER. at the bedside. Patient feels rather weak tired and exhausted. Patient did spike a fever in the ER Admitted with MDS with acute myeloid leukemia transformation and septic picture. Empirically put on vancomycin and cefepime. Also patient encephalopathic. Bone marrow biopsy done on February 06.patient is put on hydroxyurea and allopurinol. Given stress dose steroids. Patient clinically started worsening. Dr. Colon discussed with the family and also discussed patient . Prognosis poor. Decision made to discharge home with hospice. Today-patient tired lethargic. at the bedside.discharge in place.patient going home with hospice. consultation: Dr. Ayers from ID Dr. Colon from oncology Physical examination: VITAL SIGNS: reason 0.8, 110, 18, 89/55, 94% on 4 L GENERAL: Laying in bed, tired but lethargic EYES: Pupils equal. Conjunctiva pale HEENT: External appearance of nose and ears normal, oral cavity grossly normal. NECK: JVD not raised; masses not palpable. HEART: First and second heart sounds are normal; no edema. LUNGS: Respiratory rate increased diminished breath sounds ABDOMEN: Soft, minimal lower abdominal tenderness, no guarding or rigidity, liver spleen not palpable, no masses palpable. 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 INVESTIGATIONS, reviewed in the clinical context: white count 111.9, hemoglobin 7.7platelets 94 Chest x-ray film personally reviewed by me-some pulmonary edema Previous testing White count 76 hemoglobin 11.1 platelets 64 blast cells 41% potassium 3.7 bun 24 creatinine 1.28 uric acid 10.5 alkaline phosphatase and 53 albumin 2.8 COVID 19-PCR-not detected EKG tracing personally reviewed by me shows normal sinus rhythm, intrafascicular block Chest x-ray film personally reviewed by me-possible right basilar infiltrate Assessment: -Possible pneumonia in the immunosuppressed patient currently in a blast transformation, cover for gram-negative organism, POA -Acute fluid overload/pulmonary edema from IV fluids-new diagnosis today -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 -Acute kidney injury, possibly ATN from hypotension-slow to respond -COPD in an ex-smoker, -History of prostate cancer that was treated with androgen deprivation therapy to which patient responded well -Chronic kidney disease with some atrophy of the right kidney, stage III -Bladder tumor superficial status post resection -essential hypertension -Hyperlipidemia -Mild protein calorie malnutrition from decreased oral intake -Hyperphosphatemia disposition: Home with hospice Patient Condition at Discharge: Poor Plan - Discharge Summary Discharge Rx Participant: No New Discharge Prescriptions: New Hydroxyurea [Hydrea] 500 mg PO DAILY #90 capsule Allopurinol [Zyloprim] 100 mg PO DAILY #30 tablet Continue predniSONE 5 mg PO DAILY Tamoxifen Citrate 20 mg PO W/SUPPER Cyanocobalamin [Vitamin B-12] 1,000 mcg PO DAILY #30 tab Tamsulosin HCl [Flomax] 0.8 mg PO BID #0 Ascorbic Acid [Vitamin C] 500 mg PO W/SUPPER Ciclopirox Olamine [Loprox 0.77% cream] 1 applic TOPICAL DAILY Lactulose [Cephulac] 10 gram PO BID PRN PRN Reason: Constipation Calcium Carbonate [Calcium] 600 mg PO DAILY Cholecalciferol [Vitamin D3 (25 Mcg = 1000 Iu)] 2,000 unit PO DAILY Discontinued Abiraterone Acetate [Zytiga] 1,000 mg PO DAILY Xgeva 120mg/1.7ml Subcutaneous 1.7 ml SQ Q90D Ferrous Sulfate [Feosol] 325 mg PO W/SUPPER Discharge Medication List predniSONE 5 mg PO DAILY 02/07/19 [History] Tamoxifen Citrate 20 mg PO W/SUPPER 09/15/19 [History] Cyanocobalamin [Vitamin B-12] 1,000 mcg PO DAILY #30 tab 09/27/19 [Rx] Tamsulosin HCl [Flomax] 0.8 mg PO BID #0 10/01/19 [Rx] Ascorbic Acid [Vitamin C] 500 mg PO W/SUPPER 02/06/20 [History] Calcium Carbonate [Calcium] 600 mg PO DAILY 02/06/20 [History] Cholecalciferol [Vitamin D3 (25 Mcg = 1000 Iu)] 2,000 unit PO DAILY 02/06/20 [History] Ciclopirox Olamine [Loprox 0.77% cream] 1 applic TOPICAL DAILY 02/06/20 [History] Lactulose [Cephulac] 10 gram PO BID PRN 02/06/20 [History] Allopurinol [Zyloprim] 100 mg PO DAILY #30 tablet 02/08/20 [Rx] Hydroxyurea [Hydrea] 500 mg PO DAILY #90 capsule 02/08/20 [Rx] Follow up Appointment(s)/Referral(s): Kerwin Colon MD [STAFF PHYSICIAN] - 02/13/20 1:45 pm Johnny Casarez MD [Primary Care Provider] - 1-2 days Activity/Diet/Wound Care/Special Instructions: Hem/Onc sent Rx for hydrea and allopurinol to pt preferred pharmacy - [facility], 02/08/20 Discharge Disposition: HOME WITH HOSPICE
--- NOTE | 2020-02-12 14:47 | CDI ---
Documentation Clarification Form Date: 02/12/2020 02:36:08 PM From: Chayito Vila RN, CCDS Admit Date: 02/06/2020 03:05:00 AM Patient Name: Sedrick Nye Visit Number: [id number] Discharge Date: 02/10/2020 03:09:00 PM ATTENTION: The Clinical Documentation Specialists (CDI) and [facility] Coding Staff appreciate your assistance in clarifying documentation. Please respond to the clarification below the line at the bottom and electronically sign. The CDI & [facility] Coding staff will review the response and follow-up if needed. Please note: Queries are made part of the Legal Health Record. If you have any questions, please contact the author of this message via ITS. Dr. Julian Garza Encephalopathy is documented in the 02/06-02/08 Progress Notes and D/C Summary. Please provide further specificity to accurately reflects SOI/ROM History/Risk Factors: AML, Gram negative pneumonia, ATN, CKD stage 3, Mild PCM, COPD exacerbation, acute hypoxic respiratory failure. Clinical Indicators: 02/04-02/09 Labs: WBC 76/57.4/57.4/26.3/69.9/111.9, Hgb 11.1/9.4/8.9/8.4/7.7, BUN 24/31/44/50/64, and Cr. 1.28/1.44/1.59/1.57/1.46/2.25 Treatment: Cefepime IVPB IV Ceftriaxone 1gm IVPB x 1 Daptomycin 500mg IVPB q 24 hrs IV Vanco PTD IV Solucortef tapering dose 0.9% NS IVF In your professional opinion, can you please clarify the specific type of Encephalopathy, if known? Metabolic Encephalopathy Septic Encephalopathy Toxic Encephalopathy Other, please specify Unable to determine (Last Revision: November 2017) Septic encephalopathy, POA MTDD
--- NOTE | 2020-02-13 02:09 | CDI ---
Documentation Clarification Form Date: 02/13/2020 From: Ronn Swan Phone: If you have a question about this query, please contact Karen Almendarez, Inside [employer] Ad[employer] Executive at [phone] between 8am and 5pm. Admit Date: 02/06/2020 Discharge Date: 02/10/2020 Patient Name: Sedrick Nye Visit Number: [id number] ATTENTION: The Clinical Documentation Specialists (CDI) and [facility] Coding Staff appreciate your assistance in clarifying documentation. Please respond to the clarification below the line at the bottom and electronically sign. The CDI & [facility] Coding staff will review the response and follow-up if needed. Please note: Queries are made part of the Legal Health Record. If you have any questions, please contact the author of this message via ITS. Dear Julian Caputo., Patient did spike a fever in the ER Admitted with MDS with blast transformation and septic picture. History/Risk Factors: ATN, MDS. WBC : 76.0H Lactic acid: 1.4 Vitals signs on admission: Temperature 101.3 F H 98.5 F Pulse Rate 98 Pulse Rate [ Right] Respiratory 20 Rate Blood Pressure 112/68 Treatment:On IV antibiotics, IV fluids, Bone marrow biopsy done on February 06. ID Consult: William Ayers MD Antibiotics: daptomycin and cefepime. Patient did spike a fever in the ER Admitted with MDS with acute myeloid leukemia transformation and septic picture. -Possible pneumonia in the immunosuppressed patient currently in a blast transformation, cover for gram-negative organism, POA In your professional opinion, please clarify if these findings signify one of the following conditions Condition: Sepsis due to Pneumonia Sepsis due to underlying hematological malignancy with acute leukemia. Severe Severe Other, please specify Unable to determine Sepsis due to underlying hematological malignancy with acute leukemia, POA MTDD
--- NOTE | 2020-02-19 11:40 | P.PN ---
Subjective Progress Note Date: 02/09/20 Objective - Vital Signs Vital signs: Vital Signs Temp 98.2 F 02/09/20 05:47 Pulse 99 02/09/20 08:44 Resp 22 02/09/20 08:44 BP 117/68 02/09/20 05:47 Pulse Ox 93 L 02/09/20 05:47 Intake & Output 02/08/20 02/09/20 02/09/20 18:59 06:59 18:59 Intake Total 240 1 Output Total 1 Balance 240 0 Weight 86.183 kg Intake: Oral 240 1 Output: Urine 1 Other: Voiding Method Toilet Toilet Toilet Urinal Urinal Urinal # Voids 3 3 1 # Bowel Movements 1 2 2 - Exam - Constitutional General appearance: Present: average body habitus, cooperative, no acute distress - EENT Eyes: Present: anicteric sclerae, EOMI ENT: Present: hearing grossly normal - Respiratory Details: Respirations even and unlabored - Cardiovascular Details: Skin warm and dry - Musculoskeletal Musculoskeletal: Present: generalized weakness - Psychiatric Psychiatric: Present: A&O x's 3, appropriate affect, intact judgment & insight - Labs CBC & Chem 7: 02/09/20 06:32 02/09/20 06:32 Labs: Abnormal Lab Results - Last 24 Hours (Table) 02/09/20 02/09/20 02/09/20 Range/Units 06:32 06:32 06:32 WBC 69.9 H* (3.8-10.6) k/uL RBC 3.19 L (4.30-5.90) m/uL Hgb 8.4 L (13.0-17.5) gm/dL Hct 27.6 L (39.0-53.0) % MCHC 30.3 L (31.0-37.0) g/dL RDW 16.2 H (11.5-15.5) % Plt Count 55 L D (150-450) k/uL Blast Cells % 96 H* % Neutrophils # (Manual) 0.70 L (1.3-7.7) k/uL Blast Cells # (Man) 67.10 H (0) k/uL Potassium 3.2 L (3.5-5.1) mmol/L BUN 50 H (9-20) mg/dL Creatinine 1.46 H (0.66-1.25) mg/dL Glucose 128 H (74-99) mg/dL Phosphorus 1.4 L (2.5-4.5) mg/dL Alkaline Phosphatase 518 H (38-126) U/L Total Protein 5.0 L (6.3-8.2) g/dL Albumin 2.4 L (3.5-5.0) g/dL Procalcitonin 1.80 H (0.02-0.09) ng/mL Microbiology - Last 24 Hours (Table) 02/05/20 23:21 Blood Culture - Preliminary Blood No Growth after 72 hours Assessment and Plan Plan: Assessment and Plan (1) Leukocytosis Current Visit: Yes Status: Acute Priority: High Code(s): D72.829 - ELEVATED WHITE BLOOD CELL COUNT, UNSPECIFIED SNOMED Code(s): 645784206 (2) Bicytopenia Current Visit: Yes Status: Acute Priority: High Code(s): D75.89 - OTHER SPECIFIED DISEASES OF BLOOD AND BLOOD-FORMING ORGANS SNOMED Code(s): 28913610 (3) Breast cancer in male Narrative/Plan: Discontinue tamoxifen Current Visit: No Status: Chronic Priority: Low Code(s): C50.929 - MALIGNANT NEOPLASM OF UNSP SITE OF UNSPECIFIED MALE BREAST SNOMED Code(s): 701994268 (4) Prostate cancer Narrative/Plan: Discontinues zytiga Current Visit: No Status: Chronic Priority: Low Code(s): C61 - MALIGNANT NEOPLASM OF PROSTATE SNOMED Code(s): 151321169 Plan: Patient is status post bone marrow biopsy and aspirate, pathology pending. Most suspicious for an acute leukemia. Patient and family are aware that preliminary results will likely not be available until early to mid next week Patient has required treatment for tumor lysis syndrome. His uric acid is elevated again today, another dose of Elitek ordered. Begin allopurinol orally tomorrow. Uric acid daily. Anemia and thrombocytopenia stable at this time. No transfusions. No aspirin, NSAIDs, anticoagulation. Await Final Bone Marrow Biopsy results, RISK CONTROL REPRESENTATIVE discussed with patient's son related to dismal prognosis. Patient's son understands although concerned patients will not.
== END 2020-02-10 15:09 | disposition hospice, home (50) | DRG 871 ==
LOC: EC 22:43 → 5NMEDONC 02-06 03:05
PROVIDERS: ADMIT Hospitalist; ATTEND Hospitalist
PROC: 07DR3ZX Extraction of Iliac Bone Marrow, Percutaneous Approach, Diagnostic (ICD-10-PCS; principal; 2020-02-07 07:30)
DX: A41.9 Sepsis, unspecified organism (principal); J18.9 Pneumonia, unspecified organism; N17.0 Acute kidney failure with tubular necrosis; E88.3 Tumor lysis syndrome; J81.0 Acute pulmonary edema; G93.41 Metabolic encephalopathy; C92.00 Acute myeloblastic leukemia, not having achieved remission; D61.818 Other pancytopenia; E44.1 Mild protein-calorie malnutrition; J44.0 Chronic obstructive pulmonary disease with (acute) lower respiratory infection; C79.51 Secondary malignant neoplasm of bone; E78.5 Hyperlipidemia, unspecified; E83.39 Other disorders of phosphorus metabolism; D46.9 Myelodysplastic syndrome, unspecified; E87.70 Fluid overload, unspecified; C50.929 Malignant neoplasm of unspecified site of unspecified male breast; Z51.5 Encounter for palliative care; K59.00 Constipation, unspecified; I12.9 Hypertensive chronic kidney disease with stage 1 through stage 4 chronic kidney disease, or unspecified chronic kidney disease; Z20.828 Contact with and (suspected) exposure to other viral communicable diseases; F41.9 Anxiety disorder, unspecified; N18.3 Chronic kidney disease, stage 3 (moderate); D69.6 Thrombocytopenia, unspecified; Z79.899 Other long term (current) drug therapy; Z85.3 Personal history of malignant neoplasm of breast; Z80.42 Family history of malignant neoplasm of prostate; Z80.0 Family history of malignant neoplasm of digestive organs; Z90.49 Acquired absence of other specified parts of digestive tract; Z98.890 Other specified postprocedural states; Z90.11 Acquired absence of right breast and nipple; Z90.81 Acquired absence of spleen; Z87.891 Personal history of nicotine dependence; Z87.19 Personal history of other diseases of the digestive system; Z85.51 Personal history of malignant neoplasm of bladder; Z87.01 Personal history of pneumonia (recurrent); Z85.46 Personal history of malignant neoplasm of prostate; Z79.810 Long term (current) use of selective estrogen receptor modulators (SERMs); Z80.3 Family history of malignant neoplasm of breast
CPT/HCPCS: 36415; 38222; 71045; 71046; 80053; 81001; 82565; 83605; 83735; 84100; 84145; 84550; 85025; 85045; 85610; 85730; 87040; 93005; 96361; 96365; 96366; 96367; 99285